=== PATIENT | male | born 1930 | race Caucasian/White ===

== ENCOUNTER 2019-04-14 13:36 | Inpatient (IN) ==
[2019-04-14] MEDS ORDERED: LACTATED RINGERS 1,000 ML IV ONE (13:41)
--- NOTE | 2019-04-14 13:55 | Emergency Department Note ---
SOB HPI - General Chief Complaint: Shortness of Breath/Dyspnea Stated Complaint: SOB, lightheadedness, and swelling Time Seen by Provider: 04/14/19 13:45 Source: patient, family Mode of arrival: ambulatory Limitations: no limitations - History of Present Illness This patient was sent over from the urology office because of shortness of breath and edema. He does have a history of heart failure and does take a diuretic. But has had increasing edema recently and there was some concern for possible ascites though he does not have a history of liver disease. He does have chronic renal disease. No chest pain or cough. - Related Data Home Medications Medication Instructions Recorded Confirmed Aspirin [Adult Low Dose Aspirin EC] 81 mg PO DAILY 07/20/15 04/14/19 Allopurinol [Zyloprim] 100 mg PO DAILY 10/25/15 04/14/19 multivitamin,[id number] 1 tab PO QDAY 11/21/15 04/14/19 tablet cholecalciferol (vitamin D3) 1,000 1,000 unit PO QDAY cap 12/25/15 04/14/19 unit capsule gabapentin 300 mg capsule 300 mg PO TID 12/14/17 04/14/19 levothyroxine 88 mcg tablet 88 mcg PO QAM tab 12/14/17 04/14/19 omeprazole 20 mg capsule,delayed 40 mg PO QAM cap 12/15/17 04/14/19 release ascorbic acid (vitamin C) 1,000 mg 1 g PO QDAY tab 06/20/18 04/14/19 tablet melatonin 1 mg tablet 4 mg PO HS tab 06/20/18 04/14/19 cranberry 500 mg capsule 500 mg PO QDAY cap 11/29/18 04/14/19 pravastatin 20 mg tablet 20 mg PO QDAY 11/29/18 04/14/19 calcium carbonate-vitamin D3 600 1 cap PO .QD cap 01/17/19 04/14/19 mg (1,500 mg)-400 unit capsule ferrous sulfate 325 mg (65 mg 325 mg PO QDAY tab 02/08/19 04/14/19 iron) tablet bumetanide 2 mg tablet 2 mg PO QID tab 02/21/19 04/14/19 Previous Rx's Medication Instructions Recorded ipratropium-albuterol 0.5 mg-3 3 ml INHALATION QID #180 ml 12/15/17 mg(2.5 mg base)/3 mL nebulization soln magnesium oxide 400 mg capsule 400 mg PO BID #360 cap 06/24/18 doxazosin 4 mg tablet 8 mg PO DAILY #90 tab 09/22/18 finasteride 5 mg tablet 5 mg PO QDAY #90 tab 09/22/18 iron sucrose 200 mg iron/10 mL 200 mg IV ONCE #10 ml 02/21/19 intravenous solution spironolactone 25 mg tablet 25 mg PO QDAY #30 tab 04/14/19 Allergies Allergy/AdvReac Type Severity Reaction Status Date / Time Amoxicillin Allergy Unknown Nausea Verified 04/14/19 13:37 sulfamethoxazole AdvReac Unknown Nausea Verified 04/14/19 13:37 [From Bactrim] trimethoprim [From Bactrim] AdvReac Unknown Nausea Verified 04/14/19 13:37 Review of Systems All systems ED: reviewed and negative except as stated. Past Medical History - Past Medical History PMFSH Narrative: Medical History (Last Reviewed 04/14/19 @ 09:56 by LORENZO Brizuela) Allergic rhinitis due to other allergen (Chronic) CHF (congestive heart failure) (Chronic) Chronic obstructive pulmonary disease (Chronic) Vitamin D deficiency (Chronic) Primary generalized (osteo)arthritis (Chronic) Chronic musculoskeletal pain (Chronic) Onychomycosis (Chronic) Pure hypercholesterolemia (Chronic) Neuropathy, idiopathic (Chronic) CHCF (current) use of aspirin (Chronic) Hypothyroidism (Chronic) Gout (Chronic) Cardiomegaly (Chronic) Exertional dyspnea (Chronic) Diastolic dysfunction (Chronic) Peripheral edema (Chronic) Shortness of breath (Chronic) Abnormal PFTs (pulmonary function tests) (Chronic) Fracture (Chronic) Seasonal allergies (Chronic) Hypertension (Chronic) Hypercholesteremia (Chronic) Anemia (Chronic) Pain of right thigh (Chronic) Bronchitis (Chronic) Sinusitis (Chronic) Eustachian tube dysfunction (Chronic) Hip fracture, right (Chronic) Past Surgical History (Last Reviewed 04/14/19 @ 09:56 by LORENZO Brizuela) H/O hernia repair (Chronic) History of bilateral knee replacement (Chronic) History of colonoscopy (Chronic 10/25/15) History of knee replacement (Chronic) History of tonsillectomy (Chronic) History of total right hip arthroplasty (Chronic) Hx of shoulder surgery (Chronic) Family History (Last Reviewed 04/14/19 @ 09:56 by LORENZO Brizuela) Brother Cardiac disease Diabetes Mother Diabetes - Social History smoking status: Former smoker Physical Exam Limitations: no limitations General appearance: alert Head: atraumatic Eye: Present: normal appearance ENT: normal exam Neck: Present: normal inspection Chest: Present: normal inspection Respiratory: Present: other (Decreased breath sounds in the bases) Cardiovascular: Present: irregular rhythm, normal heart sounds Abdominal: Present: soft. Absent: distention, tenderness Extremities: Present: pedal edema, pretibial edema Neurological: Present: alert Psychiatric: Present: normal affect Skin: Present: warm, dry Course Vital Signs Temperature 96.9 F L 04/14/19 13:38 Pulse Rate 77 04/14/19 13:38 Respiratory Rate 22 04/14/19 13:38 Blood Pressure 139/68 04/14/19 13:38 Pulse Oximetry (%) 96 04/14/19 13:38 Temperature 96.9 F L 04/14/19 13:38 Pulse Rate 61 04/14/19 18:16 Respiratory Rate 19 04/14/19 18:16 Blood Pressure 128/74 04/14/19 18:16 Pulse Oximetry (%) 97 04/14/19 18:16 Shortness of Breath/Dyspnea - [facility] Narrative Medical decision making narrative: Patient's x-ray is read as showing heart failure his BNP was 8100. Troponin of 0.08 and 3 hours later was 0.07. He has had no associated chest pain. We did give him 40 of Lasix and he diuresed 500 cc. He will be admitted to the hospital by Dr. Caruso. - Lab Data Lab results reviewed: Yes I reviewed the patient's lab results. Result diagrams: 04/14/19 14:08 04/14/19 14:07 Lab Results 04/14/19 04/14/19 04/14/19 Range/Units 14:03 14:07 14:08 WBC 2.9 L (4.5-11.0) K/mcL RBC 3.20 L (4.50-5.90) M/mcL Hgb 9.9 L (13.5-16.5) g/dL Hct 29.9 L (41.0-55.0) % POC Hct 31.0 L (41.0-55.0) % MCV 93.4 (80.0-100.0) fL MCH 30.9 (26.0-34.0) pg MCHC 33.1 (31.0-36.0) g/dL RDW 16.8 H (11.5-14.5) % Plt Count 86 L (140-440) K/mcL MPV 10.0 (7.4-10.4) fL Gran % 71.4 (38.0-78.0) % Lymph % (Auto) 17.8 (15.5-49.0) % [place] % (Auto) 7.9 (1.0-12.0) % Eos % (Auto) 2.3 (0.0-7.0) % Baso % (Auto) 0.6 (0.0-2.0) % Gran # 2.0 (1.8-8.0) K/mcL Lymph # (Auto) 0.5 L (1.5-4.8) K/mcL [place] # (Auto) 0.2 (0.1-0.9) K/mcL Eos # (Auto) 0.1 (0.0-0.7) K/mcL Baso # (Auto) 0 (0.0-0.3) K/mcL VBG Lactic Acid 1.4 (0.5-2.0) mmol/L POC Sodium 127 L (133-145) mmol/L Sodium 128 L (133-145) mmol/L POC Potassium 3.5 (3.3-5.1) mmol/L Potassium 3.6 (3.3-5.1) mmol/L POC Chloride 87 L (96-108) mmol/L Chloride 86 L (96-108) mmol/L Carbon Dioxide 27 (22-30) mmol/L POC Total CO2 30 (22-30) mmol/L Anion Gap 15.0 (8-16) POC BUN 27 H (8-23) mg/dl BUN 25 H (8-23) mg/dl Creatinine 1.8 H (0.7-1.2) mg/dl POC Creatinine 1.8 H (0.7-1.2) mg/dl GFR Calculation 33 Glucose 124 H (70-105) mg/dL POC Glucose 120 H (70-105) mg/dL Calcium 9.0 (8.6-10.4) mg/dl POC WB Ioniz Calcium 1.10 L (1.16-1.32) mmol/L Total Bilirubin 1.1 H (0.0-1.0) mg/dL AST 26 (0-37) U/l ALT 10 (0-40) U/l Alkaline Phosphatase 99 (39-117) U/L Total Creatine Kinase 125 (24-195) IU/L CK-MB (CK-2) 5.5 H (0-4.9) ng/ml Troponin T (0-0.03) ng/ml NT-Pro-B Natriuret Pep 8172.0 H (0-450) pg/ml Total Protein 6.4 (5.9-8.4) gm/dL Albumin 4.1 (3.2-5.2) gm/dL Globulin 2.3 (2.2-3.7) gm/dL Albumin/Globulin Ratio 1.8 (1.0-2.3) Procalcitonin (<0.10) ng/mL Urine Color Urine Appearance Urine pH (5.0-9.0) Ur Specific [place] (1.000-1.035) Urine Protein (NEG) mg/dL Urine Glucose (UA) (NEG) mg/dL Urine Ketones (NEG) mg/dL Urine Occult Blood (<0.03) mg/dL Urine Nitrate (NEG) Urine Bilirubin (NEG) mg/dL Urine Urobilinogen (NEG) mg/dL Ur Leukocyte Esterase (NEG) /uL Ur Culture Indicated? 04/14/19 04/14/19 04/14/19 Range/Units 14:08 14:08 14:49 WBC (4.5-11.0) K/mcL RBC (4.50-5.90) M/mcL Hgb (13.5-16.5) g/dL Hct (41.0-55.0) % POC Hct (41.0-55.0) % MCV (80.0-100.0) fL MCH (26.0-34.0) pg MCHC (31.0-36.0) g/dL RDW (11.5-14.5) % Plt Count (140-440) K/mcL MPV (7.4-10.4) fL Gran % (38.0-78.0) % Lymph % (Auto) (15.5-49.0) % [place] % (Auto) (1.0-12.0) % Eos % (Auto) (0.0-7.0) % Baso % (Auto) (0.0-2.0) % Gran # (1.8-8.0) K/mcL Lymph # (Auto) (1.5-4.8) K/mcL [place] # (Auto) (0.1-0.9) K/mcL Eos # (Auto) (0.0-0.7) K/mcL Baso # (Auto) (0.0-0.3) K/mcL VBG Lactic Acid (0.5-2.0) mmol/L POC Sodium (133-145) mmol/L Sodium (133-145) mmol/L POC Potassium (3.3-5.1) mmol/L Potassium (3.3-5.1) mmol/L POC Chloride (96-108) mmol/L Chloride (96-108) mmol/L Carbon Dioxide (22-30) mmol/L POC Total CO2 (22-30) mmol/L Anion Gap (8-16) POC BUN (8-23) mg/dl BUN (8-23) mg/dl Creatinine (0.7-1.2) mg/dl POC Creatinine (0.7-1.2) mg/dl GFR Calculation Glucose (70-105) mg/dL POC Glucose (70-105) mg/dL Calcium (8.6-10.4) mg/dl POC WB Ioniz Calcium (1.16-1.32) mmol/L Total Bilirubin (0.0-1.0) mg/dL AST (0-37) U/l ALT (0-40) U/l Alkaline Phosphatase (39-117) U/L Total Creatine Kinase (24-195) IU/L CK-MB (CK-2) (0-4.9) ng/ml Troponin T 0.08 H* (0-0.03) ng/ml NT-Pro-B Natriuret Pep (0-450) pg/ml Total Protein (5.9-8.4) gm/dL Albumin (3.2-5.2) gm/dL Globulin (2.2-3.7) gm/dL Albumin/Globulin Ratio (1.0-2.3) Procalcitonin < 0.05 (<0.10) ng/mL Urine Color Yellow Urine Appearance Clear Urine pH 6.0 (5.0-9.0) Ur Specific [place] 1.009 (1.000-1.035) Urine Protein Neg (NEG) mg/dL Urine Glucose (UA) Negative (NEG) mg/dL Urine Ketones Neg (NEG) mg/dL Urine Occult Blood Neg (<0.03) mg/dL Urine Nitrate Neg (NEG) Urine Bilirubin Neg (NEG) mg/dL Urine Urobilinogen Neg (NEG) mg/dL Ur Leukocyte Esterase Neg (NEG) /uL Ur Culture Indicated? No 04/14/19 Range/Units 17:06 WBC (4.5-11.0) K/mcL RBC (4.50-5.90) M/mcL Hgb (13.5-16.5) g/dL Hct (41.0-55.0) % POC Hct (41.0-55.0) % MCV (80.0-100.0) fL MCH (26.0-34.0) pg MCHC (31.0-36.0) g/dL RDW (11.5-14.5) % Plt Count (140-440) K/mcL MPV (7.4-10.4) fL Gran % (38.0-78.0) % Lymph % (Auto) (15.5-49.0) % [place] % (Auto) (1.0-12.0) % Eos % (Auto) (0.0-7.0) % Baso % (Auto) (0.0-2.0) % Gran # (1.8-8.0) K/mcL Lymph # (Auto) (1.5-4.8) K/mcL [place] # (Auto) (0.1-0.9) K/mcL Eos # (Auto) (0.0-0.7) K/mcL Baso # (Auto) (0.0-0.3) K/mcL VBG Lactic Acid (0.5-2.0) mmol/L POC Sodium (133-145) mmol/L Sodium (133-145) mmol/L POC Potassium (3.3-5.1) mmol/L Potassium (3.3-5.1) mmol/L POC Chloride (96-108) mmol/L Chloride (96-108) mmol/L Carbon Dioxide (22-30) mmol/L POC Total CO2 (22-30) mmol/L Anion Gap (8-16) POC BUN (8-23) mg/dl BUN (8-23) mg/dl Creatinine (0.7-1.2) mg/dl POC Creatinine (0.7-1.2) mg/dl GFR Calculation Glucose (70-105) mg/dL POC Glucose (70-105) mg/dL Calcium (8.6-10.4) mg/dl POC WB Ioniz Calcium (1.16-1.32) mmol/L Total Bilirubin (0.0-1.0) mg/dL AST (0-37) U/l ALT (0-40) U/l Alkaline Phosphatase (39-117) U/L Total Creatine Kinase (24-195) IU/L CK-MB (CK-2) (0-4.9) ng/ml Troponin T 0.07 H* (0-0.03) ng/ml NT-Pro-B Natriuret Pep (0-450) pg/ml Total Protein (5.9-8.4) gm/dL Albumin (3.2-5.2) gm/dL Globulin (2.2-3.7) gm/dL Albumin/Globulin Ratio (1.0-2.3) Procalcitonin (<0.10) ng/mL Urine Color Urine Appearance Urine pH (5.0-9.0) Ur Specific [place] (1.000-1.035) Urine Protein (NEG) mg/dL Urine Glucose (UA) (NEG) mg/dL Urine Ketones (NEG) mg/dL Urine Occult Blood (<0.03) mg/dL Urine Nitrate (NEG) Urine Bilirubin (NEG) mg/dL Urine Urobilinogen (NEG) mg/dL Ur Leukocyte Esterase (NEG) /uL Ur Culture Indicated? - Radiology Data Radiology results reviewed: Yes I reviewed the patient's radiology results. 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
[2019-04-14 14:13] LABS: POC Blood Urea Nitrogen 27 mg/dl (8-23); POC CO2 30 mmol/L (22-30); POC Chloride 87 mmol/L (96-108); POC Creatinine 1.8 mg/dl (0.7-1.2); POC Glucose, Random 120 mg/dL (70-105); POC Potassium 3.5 mmol/L (3.3-5.1); POC Sodium 127 mmol/L (133-145)
[2019-04-14 14:38] LABS: Basophils # (Auto) 0 K/mcL (0.0-0.3); Basophils % (Auto) 0.6 % (0.0-2.0); Eosinophils # (Auto) 0.1 K/mcL (0.0-0.7); Eosinophils % (Auto) 2.3 % (0.0-7.0); Granulocytes % (Auto) 71.4 % (38.0-78.0); Hematocrit 29.9 % (41.0-55.0); Hemoglobin 9.9 g/dL (13.5-16.5); Lymphocytes # (Auto) 0.5 K/mcL (1.5-4.8); Lymphocytes % (Auto) 17.8 % (15.5-49.0); Mean Cell Volume 93.4 fL (80.0-100.0); Mean Corpuscular HGB Conc 33.1 g/dL (31.0-36.0); Monocytes # (Auto) 0.2 K/mcL (0.1-0.9); Monocytes % (Auto) 7.9 % (1.0-12.0); Platelet Count 86 K/mcL (140-440); Red Cell Distribution Width 16.8 % (11.5-14.5); WBC 2.9 K/mcL (4.5-11.0)
--- NOTE | 2019-04-14 14:41 | XRay Report ---
CLINICAL INFORMATION: dyspnea COMPARISON: 09/05/[address] demonstrating lung bases FINDINGS: Moderate cardiomegaly is unchanged. Mediastinum is unremarkable. The pulmonary vessels are slightly distended, but there is no definite edema. Moderate right pleural effusion has resulted in compressive atelectasis of the right middle and lower lobes. This has progressed from the prior CT. IMPRESSION: Moderate right pleural effusion resulting in compressive atelectasis of the right middle and lower lobes. Worsening from prior CT Mild CHF Interpreted and Authenticated by: Korey Wallace 04/14/19
[2019-04-14 15:05] LABS: Creatine Kinase MB 5.5 ng/ml (0-4.9)
[2019-04-14 15:10] LABS: ALT/SGPT 10 U/l (0-40); AST/SGOT 26 U/l (0-37); Albumin 4.1 gm/dL (3.2-5.2); Albumin/Globulin Ratio 1.8 (1.0-2.3); Alkaline Phosphatase 99 U/L (39-117); Bilirubin,Total 1.1 mg/dL (0.0-1.0); Blood Urea Nitrogen 25 mg/dl (8-23); Carbon Dioxide 27 mmol/L (22-30); Chloride 86 mmol/L (96-108); Creatine Kinase 125 IU/L (24-195); Globulin 2.3 gm/dL (2.2-3.7); Glomerular Filtration Rate 33; Glucose 124 mg/dL (70-105)
[2019-04-14] MEDS ORDERED: FUROSEMIDE 40 MG/4 ML VIAL IV ONE (15:33)
[2019-04-14 15:35] LABS: Appearance,Urine CLEAR; Bilirubin,Urine NEG (NEG); Color,Urine YELLOW; Culture Indicated,Urine NO; Glucose,Urine (UA) NEGATIVE (NEG); Ketones,Urine NEG (NEG); Leukocyte Esterase,Urine NEG /uL (NEG); Nitrate,Urine NEG (NEG); Protein,Urine NEG (NEG); Specific Gravity,Urine 1.009 (1.000-1.035); Urine Blood NEG mg/dL (<0.03); Urobilinogen,Urine NEG (NEG)
--- NOTE | 2019-04-14 15:44 | Ultrasound Report ---
CLINICAL INFORMATION: Bilateral leg edema COMPARISON: None. FINDINGS: The entire bilateral deep venous system including the common femoral, superficial femoral, popliteal and paired trifurcation calf veins are easily compressible and show normal venous blood flow on color and spectral Doppler. No evidence of thrombus IMPRESSION: Negative exam - no evidence of deep vein thrombosis in either lower extremity. Interpreted and Authenticated by: Korey Wallace 04/14/19
[2019-04-14] MEDS ORDERED: ONDANSETRON 4 MG/2 ML VIAL IV ONE (17:54)
--- NOTE | 2019-04-14 18:22 | Internal Med History&Physical ---
Medical - H&P: [facility] Patient information: Note initiated : 04/14/19 at 6:19 pm Service Date, if different from initiated Date: [] Patient: Bran Canas a 88 y/o M admitted on for SOB, lightheadedness, and swelling. Chief Complaint: [] Chief complaint: SOB History of present illness: Mr. Canas is a 88 year old M with a history of diastolic heart failure, COPD/hypertension, atrial fibrillation, chronic hyponatremia and pulmonary hypertension. Patient presents with increasing dyspnea along with 24 pound weight gain over the last week and a half. Patient has profound orthopnea unable to sleep over the last 10 days. He has been sleeping on his chair since. He has developed significant lymphedema along with lymph oozing lower extremity. He has had a significant decline in functional status and has been unable to perform activities of daily living in the past week. Today he was following up with urology and was referred to [facility] ER due to profound dyspnea. Initial work-up in the ER was consistent with decompensated heart failure on chest imaging. Patient was started on diuretics and subsequently hospitalist service was consulted At the time of evaluation patient is alert oriented. He was able to answer the question. He denies recent NSAID intake or high salt diet. He is currently not on diuretics except for spironolactone. He denies recent sick contact, chest pain, lightheadedness but had a recent fall after tripping. Review of systems 10 point review system was performed and is negative except as discussed above Medical - H&P: PMH Medical history: Allergic rhinitis due to other allergen (Chronic) CHF (congestive heart failure) (Chronic) Chronic obstructive pulmonary disease (Chronic) Vitamin D deficiency (Chronic) Primary generalized (osteo)arthritis (Chronic) Chronic musculoskeletal pain (Chronic) Onychomycosis (Chronic) Bilateral Pure hypercholesterolemia (Chronic) Neuropathy, idiopathic (Chronic) FDC (current) use of aspirin (Chronic) Hypothyroidism (Chronic) Gout (Chronic) Cardiomegaly (Chronic) Exertional dyspnea (Chronic) Diastolic dysfunction (Chronic) Peripheral edema (Chronic) Shortness of breath (Chronic) Abnormal PFTs (pulmonary function tests) (Chronic) Fracture (Chronic) Seasonal allergies (Chronic) Hypertension (Chronic) Hypercholesteremia (Chronic) Anemia (Chronic) Pain of right thigh (Chronic) Bronchitis (Chronic) Sinusitis (Chronic) Eustachian tube dysfunction (Chronic) Hip fracture, right (Chronic) x2 Surgical History H/O hernia repair (Chronic) History of bilateral knee replacement (Chronic) History of colonoscopy (Chronic 10/25/15) History of knee replacement (Chronic) Bilateral knee joint replacement History of tonsillectomy (Chronic) History of total right hip arthroplasty (Chronic) Hx of shoulder surgery (Chronic) Right side Family History Brother Cardiac disease Diabetes Mother Diabetes Social History marital status: occupational status: retired smoking status: Former smoker quit date: 10/04/91 pack-years: 30 counseling given: other alcohol intake frequency: a few times a week substance use type: does not use Lives in [place] receives help from daughter and grandson Medical - H&P: Meds Home Medications Medication Instructions Recorded Confirmed Type Aspirin [Adult Low Dose Aspirin EC] 81 mg PO DAILY 07/20/15 04/14/19 History Allopurinol [Zyloprim] 100 mg PO DAILY 10/25/15 04/14/19 History multivitamin,jj-[id number] 1 tab PO QDAY 11/21/15 04/14/19 History tablet cholecalciferol (vitamin D3) 1,000 1,000 unit PO QDAY cap 12/25/15 04/14/19 History unit capsule gabapentin 300 mg capsule 300 mg PO TID 12/14/17 04/14/19 History levothyroxine 88 mcg tablet 88 mcg PO QAM tab 12/14/17 04/14/19 History ipratropium-albuterol 0.5 mg-3 3 ml INHALATION QID #180 ml 12/15/17 04/14/19 Rx mg(2.5 mg base)/3 mL nebulization soln omeprazole 20 mg capsule,delayed 40 mg PO QAM cap 12/15/17 04/14/19 History release ascorbic acid (vitamin C) 1,000 mg 1 g PO QDAY tab 06/20/18 04/14/19 History tablet melatonin 1 mg tablet 4 mg PO HS tab 06/20/18 04/14/19 History magnesium oxide 400 mg capsule 400 mg PO BID #360 cap 06/24/18 04/14/19 Rx doxazosin 4 mg tablet 8 mg PO DAILY #90 tab 09/22/18 04/14/19 Rx finasteride 5 mg tablet 5 mg PO QDAY #90 tab 09/22/18 04/14/19 Rx cranberry 500 mg capsule 500 mg PO QDAY cap 11/29/18 04/14/19 History pravastatin 20 mg tablet 20 mg PO QDAY 11/29/18 04/14/19 History calcium carbonate-vitamin D3 600 1 cap PO .QD cap 01/17/19 04/14/19 History mg (1,500 mg)-400 unit capsule ferrous sulfate 325 mg (65 mg 325 mg PO QDAY tab 02/08/19 04/14/19 History iron) tablet bumetanide 2 mg tablet 2 mg PO QID tab 02/21/19 04/14/19 History iron sucrose 200 mg iron/10 mL 200 mg IV ONCE #10 ml 02/21/19 04/14/19 Rx intravenous solution spironolactone 25 mg tablet 25 mg PO QDAY #30 tab 04/14/19 04/14/19 Rx Allergies Allergy/AdvReac Type Severity Reaction Status Date / Time Amoxicillin AdvReac Mild Nausea Verified 04/14/19 20:33 sulfamethoxazole AdvReac Mild Nausea Verified 04/14/19 20:33 [From Bactrim] trimethoprim [From Bactrim] AdvReac Mild Nausea Verified 04/14/19 20:33 Medical - H&P: Exam - Constitutional Vitals: Temp Pulse Resp BP Pulse Ox 96.9 F L 68 19 128/74 98 04/14/19 13:38 04/14/19 18:19 04/14/19 18:19 04/14/19 18:16 04/14/19 18:19 General appearance: moderate distress (Short of breath) Exam: Alert and oriented Eye movement symmetrical Oral cavity dry No ear nose discharge Head normocephalic Neck no lymphadenopathy but distended jugular vein S1-S2 irregular rhythm, ESM grade 2 Bilateral inspiratory crackles/diminished breath sounds Abdomen distended/nontender Lower extremity 2+ pitting lymphedema with lymph oozing No joint swelling erythema skin no suspicious lesion Psych alert cooperative Neuro nonfocal Medical - H&P: Reslt - Labs CBC & Chem 7: 04/15/19 03:40 04/15/19 03:40 Labs: Short CBC 04/14/19 Range/Units 14:08 WBC 2.9 L (4.5-11.0) K/mcL Hgb 9.9 L (13.5-16.5) g/dL Hct 29.9 L (41.0-55.0) % Plt Count 86 L (140-440) K/mcL BMP 04/14/19 14:07 Sodium 128 L Potassium 3.6 Chloride 86 L Carbon Dioxide 27 BUN 25 H Creatinine 1.8 H Glucose 124 H Calcium 9.0 Cardiac Enzymes 04/14/19 04/14/19 04/14/19 Range/Units 14:07 14:08 17:06 Total Creatine Kinase 125 (24-195) IU/L CK-MB (CK-2) 5.5 H (0-4.9) ng/ml Troponin T 0.08 H* 0.07 H* (0-0.03) ng/ml Liver Function 04/14/19 Range/Units 14:07 Total Bilirubin 1.1 H (0.0-1.0) mg/dL AST 26 (0-37) U/l ALT 10 (0-40) U/l Alkaline Phosphatase 99 (39-117) U/L Albumin 4.1 (3.2-5.2) gm/dL Urine 04/14/19 Range/Units 14:49 Urine Color Yellow Urine Appearance Clear Urine pH 6.0 (5.0-9.0) Ur Specific [place] 1.009 (1.000-1.035) Urine Protein Neg (NEG) mg/dL Urine Glucose (UA) Negative (NEG) mg/dL Medical - H&P: A/P (1) CHF (congestive heart failure) Current visit: Yes Status: Chronic * Acute decompensated heart failure-echocardiogram, diuresis, optimization of CHF management based on echo findings. Inpatient telemetry admission. * Anasarca secondary to above. * Hypoxic respiratory failure continue supplemental oxygen/diuresis. Secondary to above * History of chronic kidney disease-avoid nephrotoxins and close monitoring of renal function. * Hyperlipidemia continue statin * Hypothyroidism continue thyroxine * Neuropathy continue gabapentin * A Fib-currently rate controlled. Not on anticoagulation. Chads score 2(unclear why not on anticoagulation for CVA prophylaxis) * History of BPH continue finasteride/doxazosin * Chronic hyponatremia secondary to SIADH. Managed by nephrology as outpatient * History of chronic kidney disease stage III management nephrology as outpatient. * Chronic anemia management nephrology as outpatient. * History of pulmonary hypertension. Managed by pulmonology * History of COPD continue bronchodilators * GERD continue PPI * History of gout continue allopurinol * Full code * Prophylaxis heparin Plan * Inpatient telemetry admit. Anticipate a minimum of 2 midnights hospitalization * Aggressive diuresis * Echocardiogram * Optimize CHF management based on echo findings * Pre-existing well condition management on home meds
[2019-04-14] MEDS ORDERED: ACETAMINOPHEN 325 MG TABLET PO PRN (19:30)
[2019-04-14] MEDS ORDERED: MAGNESIUM SULFATE 2 GM/50 ML BAG IV PRN (19:30)
[2019-04-14] MEDS ORDERED: POTASSIUM CHLORIDE 20 MEQ PACKET PO PRN (19:30)
[2019-04-14] MEDS ORDERED: POTASSIUM CHLORIDE 40 MEQ in DEXTROSE 5% IN WATER 500 ML IV PRN (19:30)
[2019-04-14] MEDS ORDERED: guaiFENesin/CODEINE 10 ML UDC PO PRN (19:30)
[2019-04-14] MEDS ORDERED: MELATONIN 3 MG TABLET PO PRN (19:30)
[2019-04-14] MEDS ORDERED: ONDANSETRON 4 MG/2 ML VIAL IV PRN (19:30)
[2019-04-14] MEDS: DOCUSATE SODIUM 100 MG CAPSULE PO SCH (21:34)
[2019-04-14] MEDS: HEPARIN 5,000 UNIT/ML VIAL SQ SCH (21:34)
[2019-04-14] MEDS: SENNOSIDES/DOCUSATE SODIUM 1 TAB TABLET PO SCH (21:34)
[2019-04-14] MEDS: 0.9 % SODIUM CHLORIDE 10 ML SYRINGE IV SCH (22:33)
[2019-04-15 05:32] LABS: Hematocrit 27.4 % (41.0-55.0); Mean Cell Volume 94.5 fL (80.0-100.0); Mean Corpuscular HGB Conc 32.9 g/dL (31.0-36.0); Mean Platelet Volume 10.1 fL (7.4-10.4); Platelet Count 83 K/mcL (140-440); Red Cell Distribution Width 16.7 % (11.5-14.5); WBC 3.3 K/mcL (4.5-11.0)
[2019-04-15] MEDS: 0.9 % SODIUM CHLORIDE 10 ML SYRINGE IV SCH ×3 (05:37→21:30)
[2019-04-15 05:56] LABS: ALT/SGPT 9 U/l (0-40); AST/SGOT 23 U/l (0-37); Albumin 3.7 gm/dL (3.2-5.2); Albumin/Globulin Ratio 1.7 (1.0-2.3); Alkaline Phosphatase 90 U/L (39-117); Bilirubin,Direct 0.5 mg/dL (0.0-0.3); Bilirubin,Total 1.1 mg/dL (0.0-1.0); Blood Urea Nitrogen 23 mg/dl (8-23); Calcium 8.9 mg/dl (8.6-10.4); Carbon Dioxide 28 mmol/L (22-30); Chloride 87 mmol/L (96-108); Globulin 2.2 gm/dL (2.2-3.7); Glomerular Filtration Rate 42; Glucose 97 mg/dL (70-105); Lactate Dehydrogenase 186 U/L (94-250); Phosphorous 3.6 mg/dL (2.7-4.5); Triglycerides 54 mg/dl (<150); Uric Acid 8.8 mg/dL (2.5-8.0)
[2019-04-15 06:39] LABS: Anisocytosis 1+ (NONE SEEN); Band Neutrophils % 3 % (0-10); Eosinophils % (Manual) 3 % (0-7); Hypochromasia 1+ (NONE SEEN); Lymphocytes % 17 % (15-49); Monocytes % (Manual) 6 % (1-12); Platelet Estimate DECREASED (NORMAL); RBC Morphology ABNORM (NORMAL); Segmented Neutrophils % 71 % (38-78)
[2019-04-15] MEDS: METOLAZONE 2.5 MG TABLET PO SCH (07:38)
[2019-04-15] MEDS: FUROSEMIDE 40 MG/4 ML VIAL IV SCH ×2 (08:12→15:54)
[2019-04-15] MEDS: DOCUSATE SODIUM 100 MG CAPSULE PO SCH (08:13)
[2019-04-15] MEDS: HEPARIN 5,000 UNIT/ML VIAL SQ SCH (09:15)
--- NOTE | 2019-04-15 10:10 | Internal Med Progress Note ---
Medical - PN: Subj Patient information: Note initiated : 04/15/19 at 10:08 am Service Date, if different from initiated Date: [] Patient: Bran Canas a 88 y/o M admitted on 04/14/19 for SOB, lightheadedness, and swelling. Chief Complaint: [] Interval history: Mr. Canas is a 88 year old M with a history of diastolic heart failure, COPD/hypertension, atrial fibrillation, chronic hyponatremia and pulmonary hypertension. Patient presents with increasing dyspnea along with 24 pound weight gain over the last week and a half. Patient has profound orthopnea unable to sleep over the last 10 days. He has been sleeping on his chair since. He has developed significant lymphedema along with lymph oozing lower extrem ity. He has had a significant decline in functional status and has been unable to perform activities of daily living in the past week. Today he was following up with urology and was referred to [facility] ER due to profound dyspnea. Initial work-up in the ER was consistent with decompensated heart failure on chest imaging. Patient was started on diuretics and subsequently hospitalist service was consulted At the time of evaluation patient is alert oriented. He was able to answer the question. He denies recent NSAID intake or high salt diet. He is currently not on diuretics except for spironolactone. He denies recent sick contact, chest pain, lightheadedness but had a recent fall after tripping. 04/15-patient doing well. No overnight events. No concerns per staff. Diuresing well with over 3000 cc net negative fluid balance. Improving lymphedema and orthopnea. Patient currently resting in recliner. Persistent A. fib but rate controlled. Echocardiogram results pending. Pancytopenia noted on labs. Sodium 129, creatinine 1.5. Improved hypoxia now on room air. - Constitutional Vitals: Vital Signs Temp Pulse Resp BP Pulse Ox 97.6 F 71 24 H 124/65 94 04/15/19 06:50 04/15/19 03:24 04/15/19 06:50 04/15/19 06:50 04/15/19 08:00 Period Temp Pulse Resp BP Sys/Terry Pulse Ox Last 24 Hr 96.9 F-97.9 F 47-87 13-26 113-143/59-112 93-99 Intake and Output 04/14/19 04/15/19 04/15/19 21:59 05:59 13:59 Intake Total 360 Output Total 1176 575 451 Balance -1176 -575 -91 Weight 220 lb Intake & Output: Intake & Output 04/14/19 04/15/19 04/15/19 21:59 05:59 13:59 Intake Total 360 Output Total 1176 575 451 Balance -1176 -575 -91 Weight 220 lb Intake: Oral 360 Output: Void Amount 1175 375 100 # of times incontinent of urine 1 1 Urine/Stool Mix 200 350 Other: Meal Breakfast Percent of Meal Consumed 95 Feeding Ability Independent Urine Appearance Clear Clear Urine Color Bright Yellow Bright Yellow Urine Odor Normal Normal Stool Size Small Large Stool Color Brown Brown Stool Consistency Normal for Patient Soft Formed # Voids 1 # Bowel Movements 1 General appearance: no acute distress Exam: Alert and oriented Nonlabored breathing Telemetry A. fib Diuresing well No anxiety Medical - PN: Obj Da - Labs CBC & Chem 7: 04/15/19 03:40 04/15/19 03:40 Labs: Abnormal Lab Results 04/15/19 04/15/19 04/14/19 03:40 03:40 17:06 WBC 3.3 L RBC 2.90 L Hgb 9.0 L Hct 27.4 L POC Hct RDW 16.7 H Plt Count 83 L Lymph # (Auto) Platelet Estimate Decreased A RBC Morphology Abnorm A Hypochromasia 1+ A Anisocytosis 1+ A POC Sodium Sodium 129 L POC Chloride Chloride 87 L POC BUN BUN Creatinine 1.5 H POC Creatinine Glucose POC Glucose Uric Acid 8.8 H POC WB Ioniz Calcium Total Bilirubin 1.1 H Direct Bilirubin 0.5 H CK-MB (CK-2) Troponin T 0.07 H* NT-Pro-B Natriuret Pep 04/14/19 04/14/19 04/14/19 14:08 14:08 14:07 WBC 2.9 L RBC 3.20 L Hgb 9.9 L Hct 29.9 L POC Hct 31.0 L RDW 16.8 H Plt Count 86 L Lymph # (Auto) 0.5 L Platelet Estimate RBC Morphology Hypochromasia Anisocytosis POC Sodium 127 L Sodium 128 L POC Chloride 87 L Chloride 86 L POC BUN 27 H BUN 25 H Creatinine 1.8 H POC Creatinine 1.8 H Glucose 124 H POC Glucose 120 H Uric Acid POC WB Ioniz Calcium 1.10 L Total Bilirubin 1.1 H Direct Bilirubin CK-MB (CK-2) 5.5 H Troponin T 0.08 H* NT-Pro-B Natriuret Pep 8172.0 H Meds: Medications Acetaminophen (Tylenol) 650 mg PO Q4-6HP PRN PRN Reason: PAIN/FEVER > 101 Docusate Sodium (Colace) 100 mg PO BID [facility] Last Admin: 04/15/19 08:13 Dose: Not Given Documented by: Furosemide (Lasix) 40 mg IV BIDD [facility] Last Admin: 04/15/19 08:12 Dose: 40 mg Documented by: Guaifenesin/Codeine Phosphate (Robitussin Ac) 10 ml PO Q4HP PRN PRN Reason: Cough Heparin Sodium (Porcine) (Heparin) 5,000 unit SQ Q12 [facility] Last Admin: 04/15/19 09:15 Dose: Not Given Documented by: Potassium Chloride 40 meq/ (Dextrose) 520 mls @ 130 mls/hr IV UD PRN PRN Reason: K+ = or < 3.5 Magnesium Sulfate (Magnesium Sulfate) 2 gm in 50 mls @ 50 mls/hr IV UD PRN PRN Reason: MG = or < 1.7 Last Admin: 04/15/19 08:13 Dose: 50 mls/hr Documented by: Iron Carb/Multivit/[place]/Folic Acid (Multivitamin W/Minerals) 1 tab PO DAILY [facility] Melatonin (Melatonin 3mg Tablet) 3 mg PO HSP PRN PRN Reason: Insomnia Metolazone (Zaroxolyn) 2.5 mg PO DAILY@0830 [facility] Last Admin: 04/15/19 07:38 Dose: 2.5 mg Documented by: Ondansetron HCl (Zofran) 4 mg IV Q4-6HP PRN PRN Reason: Nausea And Vomiting Potassium Chloride (Klor-Con) 40 meq PO DAILYP PRN PRN Reason: K+ < 3.5 Last Admin: 04/15/19 07:38 Dose: 40 meq Documented by: Senna/Docusate Sodium (Senna Plus Tablet) 1 tab PO HS [facility] Last Admin: 04/14/19 21:34 Dose: 1 tab Documented by: Sodium Chloride (Saline Flush) 10 ml IV Q8 [facility] Last Admin: 04/15/19 05:37 Dose: 10 ml Documented by: Medical - PN: A/P - Time Spent With Patient Total time spent is greater than 50% in coordination of care (as documented) at patient's floor/unit and/or counseling patient: 25 - 35 minutes (1) CHF (congestive heart failure) Status: Chronic Assessment and plan: * Acute decompensated heart failure-clinically responding to diuretics. Awaiting echocardiogram. Optimize CHF management based on echo findings. * Anasarca secondary to above. Improving with diuresis * Hypoxic respiratory failure -clinically improved now on room air * Hypokalemia replace as indicated * History of chronic kidney disease stage III-creatinine down to 1.5. Avoid nephrotoxins and continue close monitoring of renal function. * Hyperlipidemia continue statin * Hypothyroidism continue thyroxine * Neuropathy continue gabapentin * A Fib-currently rate controlled. Not on anticoagulation. Chads score 2(unclear why not on anticoagulation for CVA prophylaxis) * History of BPH continue finasteride/doxazosin * Chronic hyponatremia secondary to SIADH. Managed by nephrology as outpatient. Sodium 129 * History of chronic kidney disease stage III management nephrology as outpatient. * Chronic anemia management nephrology as outpatient. * History of pulmonary hypertension. Pulmonary artery pressures around 50 as per pulmonology office visit report. Managed by pulmonology * History of COPD continue bronchodilators * GERD continue PPI * History of gout continue allopurinol * Full code * Prophylaxis heparin Plan * Continue aggressive diuresis * Await echocardiogram * Optimize CHF management based on echo findings * Pre-existing medical condition management on home meds * Monitor renal function * Electrolyte replacement Current Visit: Yes Medical - PN: Qual - VTE Deep Vein Thrombosis/Pulmonary Embolism Present on Admission: No
[2019-04-15] MEDS: MULTIVIT,THER IRON,CA,FA & MIN 1 TABLET PO SCH (11:49)
[2019-04-15] MEDS: POTASSIUM CHLORIDE 20 MEQ TABLET PO SCH (17:31)
[2019-04-15] MEDS: SENNOSIDES/DOCUSATE SODIUM 1 TAB TABLET PO SCH (21:00)
[2019-04-16 05:07] LABS: Hemoglobin 9.3 g/dL (13.5-16.5); Mean Cell Volume 93.3 fL (80.0-100.0); Mean Corpuscular HGB Conc 33.3 g/dL (31.0-36.0); Mean Platelet Volume 9.8 fL (7.4-10.4); Platelet Count 89 K/mcL (140-440); Red Cell Distribution Width 16.2 % (11.5-14.5); WBC 3.4 K/mcL (4.5-11.0)
[2019-04-16 06:00] LABS: ALT/SGPT 11 U/l (0-40); AST/SGOT 26 U/l (0-37); Albumin 3.9 gm/dL (3.2-5.2); Albumin/Globulin Ratio 1.7 (1.0-2.3); Alkaline Phosphatase 94 U/L (39-117); Bilirubin,Direct 0.5 mg/dL (0.0-0.3); Bilirubin,Total 1.1 mg/dL (0.0-1.0); Blood Urea Nitrogen 21 mg/dl (8-23); Calcium 9.1 mg/dl (8.6-10.4); Carbon Dioxide 28 mmol/L (22-30); Chloride 90 mmol/L (96-108); Globulin 2.3 gm/dL (2.2-3.7); Glomerular Filtration Rate 54; Glucose 90 mg/dL (70-105); Lactate Dehydrogenase 219 U/L (94-250); Phosphorous 3.1 mg/dL (2.7-4.5); Triglycerides 60 mg/dl (<150); Uric Acid 9.2 mg/dL (2.5-8.0)
[2019-04-16 06:26] LABS: Anisocytosis 1+ (NONE SEEN); Eosinophils % (Manual) 4 % (0-7); Lymphocytes % 21 % (15-49); Monocytes % (Manual) 6 % (1-12); Platelet Estimate DECREASED (NORMAL); RBC Morphology ABNORM (NORMAL); Segmented Neutrophils % 69 % (38-78)
[2019-04-16] MEDS: METOLAZONE 2.5 MG TABLET PO SCH (07:45)
[2019-04-16] MEDS: 0.9 % SODIUM CHLORIDE 10 ML SYRINGE IV SCH ×3 (07:47→20:40)
[2019-04-16] MEDS: FUROSEMIDE 40 MG/4 ML VIAL IV SCH ×2 (08:43→17:10)
[2019-04-16] MEDS: POTASSIUM CHLORIDE 20 MEQ TABLET PO SCH ×2 (08:43→17:09)
[2019-04-16] MEDS: MULTIVIT,THER IRON,CA,FA & MIN 1 TABLET PO SCH (08:43)
[2019-04-16] MEDS ORDERED: CRANBERRY 500 MG PO SCH (09:00)
[2019-04-16] MEDS ORDERED: SPIRONOLACTONE 25 MG TABLET PO SCH (09:00)
[2019-04-16] MEDS ORDERED: BUMETANIDE 2 MG PO SCH (09:00)
[2019-04-16] MEDS ORDERED: FERROUS SULFATE 325 MG TABLET PO SCH (09:00)
[2019-04-16] MEDS ORDERED: LEVOTHYROXINE 88 MCG TABLET PO SCH (09:00)
[2019-04-16] MEDS ORDERED: DOXAZOSIN 4 MG TABLET PO SCH (09:00)
[2019-04-16] MEDS ORDERED: IRON SUCROSE COMPLEX 200 MG IV SCH (09:00)
[2019-04-16] MEDS ORDERED: FINASTERIDE 5 MG TABLET PO SCH (09:00)
[2019-04-16] MEDS ORDERED: METOPROLOL SUCCINATE 25 MG TAB.XL.24H PO SCH (09:00)
[2019-04-16] MEDS ORDERED: OMEPRAZOLE 20 MG CAPSULE PO SCH (09:00)
[2019-04-16] MEDS ORDERED: ALLOPURINOL 100 MG TABLET PO SCH (09:00)
--- NOTE | 2019-04-16 09:42 | Internal Med Progress Note ---
Medical - PN: Subj Patient information: Note initiated : 04/16/19 at 9:39 am Service Date, if different from initiated Date: [] Patient: Bran Canas a 88 y/o M admitted on 04/14/19 for SOB, lightheadedness, and swelling. Chief Complaint: [] Interval history: Mr. Canas is a 88 year old M with a history of diastolic heart failure, COPD/hypertension, atrial fibrillation, chronic hyponatremia and pulmonary hypertension. Patient presents with increasing dyspnea along with 24 pound weight gain over the last week and a half. Patient has profound orthopnea unable to sleep over the last 10 days. He has been sleeping on his chair since. He has developed significant lymphedema along with lymph oozing lower extremi ty. He has had a significant decline in functional status and has been unable to perform activities of daily living in the past week. Today he was following up with urology and was referred to [facility] ER due to profound dyspnea. Initial work-up in the ER was consistent with decompensated heart failure on chest imaging. Patient was started on diuretics and subsequently hospitalist service was consulted At the time of evaluation patient is alert oriented. He was able to answer the question. He denies recent NSAID intake or high salt diet. He is currently not on diuretics except for spironolactone. He denies recent sick contact, chest pain, lightheadedness but had a recent fall after tripping. 04/15-patient doing well. No overnight events. No concerns per staff. Diuresing well with over 3000 cc net negative fluid balance. Improving lymphedema and orthopnea. Patient currently resting in recliner. Persistent A. fib but rate controlled. Echocardiogram results pending. Pancytopenia noted on labs. Sodium 129, creatinine 1.5. Improved hypoxia now on room air. 04/16-patient doing remarkably well. Diuresed over 3500 cc. Lymphedema improving. Creatinine down from 1.8-1.2. Echocardiogram results pending. Sodium 132, ongoing PT OT/nutrition support. Anticipate discharge in 24 hours to SNF. - Constitutional Vitals: Vital Signs Temp Pulse Resp BP Pulse Ox 98.6 F 75 24 H 129/71 97 04/16/19 07:10 04/16/19 04:13 04/16/19 07:10 04/16/19 07:10 04/16/19 07:10 Period Temp Pulse Resp BP Sys/Terry Pulse Ox Last 24 Hr 97.6 F-99.1 F 75-80 14-24 107-129/60-78 92-97 Intake and Output 04/15/19 04/16/19 04/16/19 21:59 05:59 13:59 Intake Total 420 120 Output Total 450 675 Balance -30 -675 120 Weight 216 lb 11.2 oz Intake & Output: Intake & Output 04/15/19 04/16/19 04/16/19 21:59 05:59 13:59 Intake Total 420 120 Output Total 450 675 Balance -30 -675 120 Weight 216 lb 11.2 oz Intake: Oral 420 120 Output: Void Amount 450 675 Other: Meal Dinner Breakfast Percent of Meal Consumed 50% 100% Feeding Ability Independent Independent Urine Appearance Clear Clear Clear Urine Color Pale Pale Bright Yellow Urine Odor Normal Normal Normal # Voids 275 General appearance: no acute distress Exam: No overnight events alert oriented nonlabored breathing No anxiety No telemetry events Lymphedema remarkably improved Medical - PN: Obj Da - Labs CBC & Chem 7: 04/16/19 03:35 04/16/19 03:35 Labs: Abnormal Lab Results 04/16/19 04/16/19 04/15/19 03:35 03:35 03:40 WBC 3.4 L RBC 3.00 L Hgb 9.3 L Hct 28.0 L POC Hct RDW 16.2 H Plt Count 89 L Lymph # (Auto) Platelet Estimate Decreased A RBC Morphology Abnorm A Hypochromasia Anisocytosis 1+ A POC Sodium Sodium 132 L 129 L POC Chloride Chloride 90 L 87 L POC BUN BUN Creatinine 1.5 H POC Creatinine Glucose POC Glucose Uric Acid 9.2 H 8.8 H POC WB Ioniz Calcium Total Bilirubin 1.1 H 1.1 H Direct Bilirubin 0.5 H 0.5 H GGT 62 H CK-MB (CK-2) Troponin T NT-Pro-B Natriuret Pep 04/15/19 04/14/19 04/14/19 03:40 17:06 14:08 WBC 3.3 L RBC 2.90 L Hgb 9.0 L Hct 27.4 L POC Hct RDW 16.7 H Plt Count 83 L Lymph # (Auto) Platelet Estimate Decreased A RBC Morphology Abnorm A Hypochromasia 1+ A Anisocytosis 1+ A POC Sodium Sodium POC Chloride Chloride POC BUN BUN Creatinine POC Creatinine Glucose POC Glucose Uric Acid POC WB Ioniz Calcium Total Bilirubin Direct Bilirubin GGT CK-MB (CK-2) Troponin T 0.07 H* 0.08 H* NT-Pro-B Natriuret Pep 04/14/19 04/14/19 14:08 14:07 WBC 2.9 L RBC 3.20 L Hgb 9.9 L Hct 29.9 L POC Hct 31.0 L RDW 16.8 H Plt Count 86 L Lymph # (Auto) 0.5 L Platelet Estimate RBC Morphology Hypochromasia Anisocytosis POC Sodium 127 L Sodium 128 L POC Chloride 87 L Chloride 86 L POC BUN 27 H BUN 25 H Creatinine 1.8 H POC Creatinine 1.8 H Glucose 124 H POC Glucose 120 H Uric Acid POC WB Ioniz Calcium 1.10 L Total Bilirubin 1.1 H Direct Bilirubin GGT CK-MB (CK-2) 5.5 H Troponin T NT-Pro-B Natriuret Pep 8172.0 H Meds: Medications Acetaminophen (Tylenol) 650 mg PO Q4-6HP PRN PRN Reason: PAIN/FEVER > 101 Last Admin: 04/15/19 14:15 Dose: 650 mg Documented by: Albuterol/Ipratropium (Duoneb) 3 ml NEB QID [facility] Allopurinol (Zyloprim) 100 mg PO DAILY [facility] Ascorbic Acid (Vitamin C) 1,000 mg PO DAILY [facility] Aspirin (Aspirin) 81 mg PO DAILY [facility] Calcium/Vitamin D (Calcium W/Vit D3) 500 mg PO DAILY [facility] Doxazosin Mesylate (Cardura) 8 mg PO DAILY [facility] Ferrous Sulfate (Ferrous Sulfate) 325 mg PO QDAY [facility] Finasteride (Proscar) 5 mg PO QDAY [facility] Furosemide (Lasix) 40 mg IV BIDD [facility] Last Admin: 04/16/19 08:43 Dose: 40 mg Documented by: Gabapentin (Neurontin) 300 mg PO TID [facility] Guaifenesin/Codeine Phosphate (Robitussin Ac) 10 ml PO Q4HP PRN PRN Reason: Cough Potassium Chloride 40 meq/ (Dextrose) 520 mls @ 130 mls/hr IV UD PRN PRN Reason: K+ = or < 3.5 Magnesium Sulfate (Magnesium Sulfate) 2 gm in 50 mls @ 50 mls/hr IV UD PRN PRN Reason: MG = or < 1.7 Last Infusion: 04/15/19 10:15 Dose: Infused Documented by: Iron Carb/Multivit/[place]/Folic Acid (Multivitamin W/Minerals) 1 tab PO DAILY [facility] Last Admin: 04/16/19 08:43 Dose: 1 tab Documented by: Iron Carb/Multivit/[place]/Folic Acid (Multivitamin W/Minerals) 1 tab PO DAILY [facility] Levothyroxine Sodium (Synthroid) 88 mcg PO QAM [facility] Magnesium Oxide (Magnesium Oxide) 400 mg PO BID [facility] Melatonin (Melatonin 3mg Tablet) 3 mg PO HSP PRN PRN Reason: Insomnia Non-Formulary Medication (Bumetanide) 2 mg PO QID [facility] Non-Formulary Medication (Iron Sucrose Complex [Venofer]) 200 mg IV ONCE [facility] Omeprazole (Prilosec) 40 mg PO QAM [facility] Ondansetron HCl (Zofran) 4 mg IV Q4-6HP PRN PRN Reason: Nausea And Vomiting Potassium Chloride (Klor-Con) 40 meq PO DAILYP PRN PRN Reason: K+ < 3.5 Last Admin: 04/15/19 07:38 Dose: 40 meq Documented by: Potassium Chloride (Kdur) 20 meq PO BIDCC [facility] Last Admin: 04/16/19 08:43 Dose: 20 meq Documented by: Senna/Docusate Sodium (Senna Plus Tablet) 1 tab PO HS [facility] Last Admin: 04/15/19 21:00 Dose: Not Given Documented by: Simvastatin (Zocor) 10 mg PO HS [facility] Sodium Chloride (Saline Flush) 10 ml IV Q8 [facility] Last Admin: 04/16/19 07:47 Dose: 10 ml Documented by: Spironolactone (Aldactone) 25 mg PO QDAY [facility] Vitamin D (Vitamin D3) 1,000 unit PO DAILY [facility] Medical - PN: A/P - Time Spent With Patient Total time spent is greater than 50% in coordination of care (as documented) at patient's floor/unit and/or counseling patient: 25 - 35 minutes (1) CHF (congestive heart failure) Status: Chronic Assessment and plan: * Acute decompensated heart failure-diuresed over 3500 cc, improved shortness of breath/hypoxia/lymphedema. Echocardiogram EF 45 to 50%. Start beta-kaylah * Anasarca secondary to above. Improving with diuresis * Hypoxic respiratory failure -resolved now on room air * A Fib-currently rate controlled. Not on anticoagulation. Chads score 2(unclear why not on anticoagulation for CVA prophylaxis) * Hypokalemia replace as indicated * History of chronic kidney disease stage III-creatinine down to 1.2 from 1.8. Avoid nephrotoxins and continue close monitoring of renal function. * Hyperlipidemia continue statin * Hypothyroidism continue thyroxine * Neuropathy continue gabapentin * History of BPH continue finasteride/doxazosin * Chronic hypervolemic hyponatremia-secondary to CHF. 132 * History of chronic kidney disease stage III management nephrology as outpatient. * Chronic anemia management nephrology as outpatient. * History of pulmonary hypertension. Pulmonary artery pressures around 50 as per pulmonology office visit report. Managed by pulmonology * History of COPD continue bronchodilators * GERD continue PPI * History of gout continue allopurinol * Full code * Prophylaxis heparin Plan * Continue aggressive diuresis * Start long-acting beta-kaylah * Consider low-dose AMRITA/ARB if evidence of systolic dysfunction * Consider anticoagulation prior to discharge for CVA prophylaxis if patient agreeable * Daily weights/diuretics as outpatient * Pre-existing medical condition management on home meds * Electrolyte replacement as indicated * Discharge planning per case management Current Visit: Yes Medical - PN: Qual - VTE Deep Vein Thrombosis/Pulmonary Embolism Present on Admission: No
[2019-04-16] MEDS: IPRATROPIUM/ALBUTEROL 3 ML AMPUL.NEB NEB SCH ×4 (12:05→21:22)
[2019-04-16] MEDS: GABAPENTIN 300 MG CAPSULE PO SCH ×3 (12:20→20:39)
--- NOTE | 2019-04-16 13:03 | XRay Report ---
CLINICAL INFORMATION: Shortness of breath COMPARISON: 04/14/2019 FINDINGS: Moderate cardiomegaly is unchanged. Mediastinum is unremarkable. Pulmonary vessels show slight decrease in caliber over the brain mildly distended is mild interstitial edema in both lungs. Moderate right pleural effusion with compressive atelectasis right middle and lower lobes unchanged. IMPRESSION: Mild CHF - slight improvement Moderate right pleural effusion with compressive atelectasis right middle and lower lobes - stable Interpreted and Authenticated by: Korey Wallace 04/16/19
[2019-04-16] MEDS ORDERED: POTASSIUM CHLORIDE 40 MEQ in DEXTROSE 5% IN WATER 500 ML IV PRN (15:43)
[2019-04-16] MEDS ORDERED: MELATONIN 3 MG TABLET PO PRN (15:43)
[2019-04-16] MEDS ORDERED: guaiFENesin/CODEINE 10 ML UDC PO PRN (15:43)
[2019-04-16] MEDS ORDERED: ONDANSETRON 4 MG/2 ML VIAL IV PRN (15:43)
[2019-04-16] MEDS ORDERED: ACETAMINOPHEN 325 MG TABLET PO PRN (15:43)
[2019-04-16] MEDS ORDERED: POTASSIUM CHLORIDE 20 MEQ PACKET PO PRN (15:43)
[2019-04-16] MEDS ORDERED: MAGNESIUM SULFATE 2 GM/50 ML BAG IV PRN (15:43)
[2019-04-16] MEDS ORDERED: SIMVASTATIN 10 MG TABLET PO SCH ×2 (21:00)
[2019-04-16] MEDS ORDERED: MELATONIN 4 MG PO SCH (21:00)
[2019-04-16] MEDS ORDERED: SENNOSIDES/DOCUSATE SODIUM 1 TAB TABLET PO SCH (21:00)
[2019-04-17 05:15] LABS: Hematocrit 27.3 % (41.0-55.0); Hemoglobin 9.1 g/dL (13.5-16.5); Mean Cell Volume 93.6 fL (80.0-100.0); Mean Corpuscular HGB Conc 33.3 g/dL (31.0-36.0); Mean Platelet Volume 9.6 fL (7.4-10.4); Platelet Count 87 K/mcL (140-440); RBC 2.92 M/mcL (4.50-5.90); Red Cell Distribution Width 16.3 % (11.5-14.5); WBC 3.7 K/mcL (4.5-11.0)
[2019-04-17 05:37] LABS: ALT/SGPT 8 U/l (0-40); AST/SGOT 23 U/l (0-37); Albumin 3.7 gm/dL (3.2-5.2); Albumin/Globulin Ratio 1.7 (1.0-2.3); Alkaline Phosphatase 89 U/L (39-117); Bilirubin,Direct 0.4 mg/dL (0.0-0.3); Blood Urea Nitrogen 22 mg/dl (8-23); Calcium 9.1 mg/dl (8.6-10.4); Carbon Dioxide 29 mmol/L (22-30); Chloride 88 mmol/L (96-108); Globulin 2.2 gm/dL (2.2-3.7); Glomerular Filtration Rate 45; Glucose 111 mg/dL (70-105); Lactate Dehydrogenase 200 U/L (94-250); Phosphorous 3.6 mg/dL (2.7-4.5); Triglycerides 54 mg/dl (<150); Uric Acid 9.2 mg/dL (2.5-8.0)
[2019-04-17] MEDS: 0.9 % SODIUM CHLORIDE 10 ML SYRINGE IV SCH (07:14)
[2019-04-17] MEDS ORDERED: LEVOTHYROXINE 88 MCG TABLET PO SCH ×2 (07:30)
[2019-04-17 08:17] LABS: Anisocytosis 1+ (NONE SEEN); Band Neutrophils % 2 % (0-10); Eosinophils % (Manual) 4 % (0-7); Lymphocytes % 19 % (15-49); Monocytes % (Manual) 2 % (1-12); Platelet Estimate DECREASED (NORMAL); RBC Morphology ABNORM (NORMAL); Segmented Neutrophils % 73 % (38-78)
[2019-04-17] MEDS ORDERED: OMEPRAZOLE 20 MG CAPSULE PO SCH (09:00)
[2019-04-17] MEDS ORDERED: SPIRONOLACTONE 25 MG TABLET PO SCH (09:00)
[2019-04-17] MEDS ORDERED: MULTIVIT,THER IRON,CA,FA & MIN 1 TABLET PO SCH ×3 (09:00)
[2019-04-17] MEDS ORDERED: MAGNESIUM OXIDE 400 MG TABLET PO SCH ×2 (09:00)
[2019-04-17] MEDS ORDERED: ASCORBIC ACID 500 MG TABLET PO SCH ×2 (09:00)
[2019-04-17] MEDS ORDERED: METOPROLOL SUCCINATE 25 MG TAB.XL.24H PO SCH (09:00)
[2019-04-17] MEDS ORDERED: DOXAZOSIN 4 MG TABLET PO SCH (09:00)
[2019-04-17] MEDS ORDERED: CALCIUM W/VIT D3 500 MG TABLET PO SCH ×2 (09:00)
[2019-04-17] MEDS ORDERED: VITAMIN D3 1,000 UNIT TABLET PO SCH ×2 (09:00)
[2019-04-17] MEDS ORDERED: FINASTERIDE 5 MG TABLET PO SCH (09:00)
[2019-04-17] MEDS ORDERED: ALLOPURINOL 100 MG TABLET PO SCH (09:00)
[2019-04-17] MEDS ORDERED: FERROUS SULFATE 325 MG TABLET PO SCH (09:00)
[2019-04-17] MEDS ORDERED: ASPIRIN 81 MG TAB.CHEW PO SCH ×2 (09:00)
[2019-04-17] MEDS: IPRATROPIUM/ALBUTEROL 3 ML AMPUL.NEB NEB SCH ×2 (09:08→13:01)
[2019-04-17] MEDS ORDERED: MAGNESIUM SULFATE 2 GM/50 ML BAG IV ONE (09:27)
[2019-04-17] MEDS: POTASSIUM CHLORIDE 20 MEQ TABLET PO SCH (09:51)
[2019-04-17] MEDS: FUROSEMIDE 40 MG/4 ML VIAL IV SCH (09:53)
[2019-04-17] MEDS: GABAPENTIN 300 MG CAPSULE PO SCH (09:55)
--- NOTE | 2019-04-17 10:06 | Discharge Summary ---
Medical - DS: Prov Patient information: Note initiated : 04/17/19 at 10:02 am Service Date, if different from initiated Date: [] Patient: Bran Canas 88 y/o M admitted on 04/14/19 for SOB, lightheadedness, and swelling. Chief Complaint: [] Date of admission: 04/14/19 19:17 Discharge date: 04/17/19 Primary care physician: Kali Choudhury Consults: 04/14/19 Consult to Physician [CONS] Stat Comment: Consulting Provider: Ricardo Decker Reason For Exam: Physician to Consult Discharging clinician: Regino Zamora Medical - DS: Meds - Discharge Medications Prescriptions: Metoprolol Succinate [Toprol Xl] 12.5 mg PO DAILY #30 tab.xl.24h Active and Home Medications: Home Medications Aspirin [Adult Low Dose Aspirin EC] 81 mg PO DAILY 07/20/15 [History Confirmed 04/14/19 Last Taken 04/14/19 08:00] Allopurinol [Zyloprim] 100 mg PO DAILY 10/25/15 [History Confirmed 04/14/19 Last Taken 04/14/19 08:00] multivitamin,so-jtan-ogviprrq tablet 1 tab PO QDAY 11/21/15 [History Confirmed 04/14/19 Last Taken 04/14/19 08:00] cholecalciferol (vitamin D3) 1,000 unit capsule 1,000 unit PO QDAY cap 12/25/15 [History Confirmed 04/14/19 Last Taken 04/14/19 08:00] gabapentin 300 mg capsule 300 mg PO TID 12/14/17 [History Confirmed 04/14/19 Last Taken 04/14/19 08:00] levothyroxine 88 mcg tablet 88 mcg PO QAM tab 12/14/17 [History Confirmed 04/14/19 Last Taken 04/14/19 04:00] ipratropium-albuterol 0.5 mg-3 mg(2.5 mg base)/3 mL nebulization soln 3 ml INHALATION QID #180 ml 12/15/17 [Rx Confirmed 04/14/19 Last Taken 04/13/19 21:30] omeprazole 20 mg capsule,delayed release 40 mg PO QAM cap 12/15/17 [History Confirmed 04/14/19 Last Taken 04/14/19 08:00] ascorbic acid (vitamin C) 1,000 mg tablet 1 g PO QDAY tab 06/20/18 [History Confirmed 04/14/19 Last Taken 04/14/19 08:00] melatonin 1 mg tablet 4 mg PO HS tab 06/20/18 [History Confirmed 04/14/19 Last Taken 04/13/19 21:30 6] magnesium oxide 400 mg capsule 400 mg PO BID #360 cap 06/24/18 [Rx Confirmed 04/14/19 Last Taken 04/14/19 08:00] doxazosin 4 mg tablet 8 mg PO DAILY #90 tab 09/22/18 [Rx Confirmed 04/14/19 Last Taken 04/13/19 21:30] finasteride 5 mg tablet 5 mg PO QDAY #90 tab 09/22/18 [Rx Confirmed 04/14/19 Last Taken 04/13/19 21:30] cranberry 500 mg capsule 500 mg PO QDAY cap 11/29/18 [History Confirmed 04/14/19 Last Taken 04/14/19 08:00] pravastatin 20 mg tablet 20 mg PO QDAY 11/29/18 [History Confirmed 04/14/19 Last Taken 04/13/19 21:30] calcium carbonate-vitamin D3 600 mg (1,500 mg)-400 unit capsule 1 cap PO .QD cap 01/17/19 [History Confirmed 04/14/19 Last Taken 04/14/19 08:00] ferrous sulfate 325 mg (65 mg iron) tablet 325 mg PO QDAY tab 02/08/19 [History Confirmed 04/14/19 Last Taken Unknown] bumetanide 2 mg tablet 2 mg PO BID tab 02/21/19 [History Confirmed 04/16/19 Last Taken 04/14/19 07:15] spironolactone 25 mg tablet 25 mg PO QDAY #30 tab 04/14/19 [Rx Confirmed 04/14/19 Last Taken Unknown] Medical - DS: Hosp Hospital course: Mr. Canas is a 88 year old M with a history of diastolic heart failure, COPD/hypertension, atrial fibrillation, chronic hyponatremia and pulmonary h ypertension. Patient presents with increasing dyspnea along with 24 pound weight gain over the last week and a half. Patient has profound orthopnea unable to sleep over the last 10 days. He has been sleeping on his chair since. He has developed significant lymphedema along with lymph oozing lower extremity. He has had a significant decline in functional status and has been unable to perform activities of daily living in the past week. Today he was following up with urology and was referred to [facility] ER due to profound dyspnea. Initial work-up in the ER was consistent with decompensated heart failure on chest imaging. Patient was started on diuretics and subsequently hospitalist service was consulted At the time of evaluation patient is alert oriented. He was able to answer the question. He denies recent NSAID intake or high salt diet. He is currently not on diuretics except for spironolactone. He denies recent sick contact, chest pain, lightheadedness but had a recent fall after tripping. 04/15-patient doing well. No overnight events. No concerns per staff. Diuresing well with over 3000 cc net negative fluid balance. Improving lymphedema and orthopnea. Patient currently resting in recliner. Persistent A. fib but rate controlled. Echocardiogram results pending. Pancytopenia noted on labs. Sodium 129, creatinine 1.5. Improved hypoxia now on room air. 04/16-patient doing remarkably well. Diuresed over 3500 cc. Lymphedema improving. Creatinine down from 1.8-1.2. Echocardiogram results pending. Sodium 132, ongoing PT OT/nutrition support. Anticipate discharge in 24 hours to SNF. 04/17 Patient seen examined, no acute issues overnight, Seen by PT today, they report that the " The patient was able to gait train for 275 ft without a fww and gait trained with a slightly decreased step length while ambulating. The patient required 1 standing rest while gait training secondary to back pain." Patient admits to a high salt diet, He does wish to go home and feels back to baseline, has a daughter who would take care of him. Patient stable for discharge In Summary Patient admitted to the hospital with a diagnosis of CHF exacerbation, diastolic heart failure. Patient was diuresed with the help of IV Lasix he diuresed quite well, at the time of discharge he is back to baseline status, not needing any oxygen. He is -4370 mL since admission. The patient still has chronic right- sided pleural effusion, as well as bilateral lower extremity edema. I am not making any changes to the patient's diuretic regimen, but I will cut back on the patient's salt intake as well as fluid intake and see if this helps. She has atrial fibrillation, he is not on anticoagulation just aspirin 81. Would recommend discussion with PCP with regards to need for anticoagulation for stroke prophylaxis. Echocardiogram showed that the patient had left ventricular ejection fraction of 45 to 50%. Has been started on a low-dose of a beta-kaylah should also help with rate control. Patient has pancytopenia and not sure if this has been evaluated but will leave the work-up with the primary care provider Echo report Left ventricle is normal in size, moderate to severe LVH, left ventricular systolic function is mildly reduced septal motion is consistent with conduction abnormality right ventricle is mild to moderately dilated right and left atrium are dilated moderately. Mild to moderate mitral regurgitation, moderate pulmonary hypertension, dilated inferior vena cava aortic valve leaflets appear to be moderate to severely calcified no aortic stenosis and small pericardial effusion adjacent to the right atrial free wall. Discharge diagnosis: CHF exacerbation - Time Spent with Patient Total time spent providing and/or coordinating discharge services: Greater than 30 minutes Medical - DS: Exam - Constitutional Vitals: Vital Signs Temp Pulse Pulse Resp BP BP Pulse Ox 04/17/19 09:09 72 16 04/17/19 06:40 97.9 F 74 16 106/62 94 04/17/19 03:54 97.8 F 72 16 92/54 94 04/17/19 00:37 97.5 F 74 16 113/64 91 04/16/19 21:22 72 16 04/16/19 19:39 97.6 F 72 16 108/59 95 04/16/19 18:08 70 16 04/16/19 15:44 97.6 F 20 116/72 94 04/16/19 13:13 74 16 94 04/16/19 13:11 73 16 Intake and Output 04/16/19 04/17/19 04/17/19 21:59 05:59 13:59 Intake Total 440 100 Output Total 1400 200 Balance -960 -100 Intake: Oral 440 100 Output: Void Amount 1400 200 # of times incontinent of urine 0 Other: Meal Dinner Percent of Meal Consumed 50% Feeding Ability Independent Urine Appearance Clear Urine Color Bright Yellow # Voids 0 Weight 214 lb 12.8 oz Additional comments: Constitutional; Afebrile, cooperative, alert, not in distress. Eyes- No icterus, , No periorbital swelling Ears- Ext ear normal, hearing normal to conversation. Neck- Midline trachea, supple Respiratory system: Air Entry absent on right base (chr pleural effusion), no wheeze on exam today CVS- Rate normal, rhythm irregular, vel lower extremity pitting edema present. Abdomen- Soft nontender abdomen, no organomegaly, no tenderness, no guarding or rigidity, [employer]- AOOx3, moving all extremities, no gross focal deficit noted. Medical - DS: Data Labs on day of discharge: Labs from last 24 hours 04/17/19 04/17/19 04:03 04:03 WBC 3.7 L RBC 2.92 L Hgb 9.1 L Hct 27.3 L MCV 93.6 MCH 31.2 MCHC 33.3 RDW 16.3 H Plt Count 87 L MPV 9.6 Total Counted 100 Seg Neutrophils % 73 Band Neutrophils % 2 Lymphocytes % 19 Monocytes % (Manual) 2 Eosinophils % (Manual) 4 Platelet Estimate Decreased A RBC Morphology Abnorm A Anisocytosis 1+ A Sodium 131 L Potassium 3.6 Chloride 88 L Carbon Dioxide 29 Anion Gap 14.0 BUN 22 Creatinine 1.4 H GFR Calculation 45 Glucose 111 H Uric Acid 9.2 H Calcium 9.1 Phosphorus 3.6 Magnesium 1.6 Total Bilirubin 1.0 Direct Bilirubin 0.4 H GGT 57 AST 23 ALT 8 Alkaline Phosphatase 89 Lactate Dehydrogenase 200 Total Protein 5.9 Albumin 3.7 Globulin 2.2 Albumin/Globulin Ratio 1.7 Triglycerides 54 Medical - DS: A/P - Patient/Caregiver Discharge Instructions Activity: as per physical therapy, increase activity as tolerated Diet: Low Sodium (2gm), Cardiac Additional Instructions: Take your diuretic regime as before, bumex 2mg twice daily and aldactone (spironolactone 25mg daily) Please follow a strict low salt regime, Fluid restriction to 50 Fl Oz, (1500ml in 24 hrs) Follow up with your PCP in 1 week, make sure you PCP checks your labs, kidney function and makes sure they are stable Talk with your PCP regarding need for a blood thinner for stroke prophylaxis. Go to the Er if worsening symptoms, chest pain, shortness of breath or any other acute finding. - Follow up Plan Follow up with: Kali Choudhury MD [Primary Care Provider] - Disposition: Home Health Service Prognosis: Fair Rehab Potential: Fair I certify that the patient requires SNF services: No Overall status at discharge: patient is progressing back to baseline Medical - DS: Qual - VTE Deep Vein Thrombosis/Pulmonary Embolism Present on Admission: No
== END 2019-04-17 15:15 | disposition home health service (06) | DRG 291 ==
LOC: ED 13:36 → ICU 19:17 → MEDSUR 04-16 17:00
PROVIDERS: ADMIT Internal Medicine; ATTEND Internal Medicine

== ENCOUNTER 2019-11-07 12:09 | Inpatient (IN) ==
--- NOTE | 2019-11-07 12:53 | Emergency Department Note ---
SOB HPI - General Chief Complaint: Shortness of Breath/Dyspnea Stated Complaint: weight gain, shortness of breath, chest tightness. Time Seen by Provider: 11/07/19 12:25 Source: patient, family Mode of arrival: ambulatory Limitations: no limitations - History of Present Illness This patient is accompanied by his daughter, Ruth Ann, he is here at referral from Dr. Choudhury with 2 weeks of reported 16 lb wt gain, swollen legs, swollen abdomen, and has had some tightness in his chest. He has a history of pleural effusions in the past and CHF with chronic atrial fibrillation. He has been taking his normal diuretics. He has not consumed more sodium/salt than usual. He is on a low-sodium diet chronically. He was restarted on spironolactone 2 weeks ago after being off for about 6 months having been told previously that he was getting too much. He also has been started on Viagra not too long ago for pulmonary hypertension. He describes that laying on his back he has to breathe through his mouth because he cannot seem to get enough air. His abdomen has also been more distended in this last 1 month and this is a new problem. Has chronic atrial fibrillation. Because of easy bruising quite severely he has not been on an anticoagulant. REVIEW OF SYSTEMS: Denies fevers. Denies shivers/chills but feels cold all the time. No sweats No chest pain but feels a tiny bit of tightness but he is fairly nonspecific with this. Has some occasional mild cough and feeling more short of breath. Has occasional wheeze. Has had some phlegm. Has some abdominal pain in the past 7-10 days off and on. No nausea or vomiting or to has occasional constipation. Denies hematochezia. Denies dysuria Has some chronic back pain with no changes Feels some generalized weakness and lightheadedness. No anxiety or depression. Has some chronic itching to his skin. Scratching causes significant ecchymoses in his skin. Has some kidney dysfunction the last being about 29% per Dr. Urbina but it may have improved since that time. Has some chronic hyponatremia. - Related Data Home Medications Medication Instructions Recorded Confirmed Allopurinol [Zyloprim] 100 mg PO DAILY 10/25/15 10/26/19 multivitamin,nk-mexo-iskhpocl 1 tab PO QDAY 11/21/15 10/26/19 cholecalciferol (vitamin D3) 25 1,000 unit PO QDAY cap 12/25/15 10/26/19 mcg (1,000 unit) capsule levothyroxine 88 mcg tablet 88 mcg PO QAM tab 12/14/17 10/26/19 omeprazole 20 mg capsule,delayed 40 mg PO QAM cap 12/15/17 10/26/19 release ascorbic acid (vitamin C) 1,000 mg 1 g PO QDAY tab 06/20/18 10/26/19 tablet cranberry 500 mg capsule 500 mg PO QDAY cap 11/29/18 10/26/19 calcium carbonate-vitamin D3 600 1 cap PO .QD cap 01/17/19 10/26/19 mg (1,500 mg)-400 unit capsule ferrous sulfate 325 mg (65 mg 325 mg PO QDAY tab 02/08/19 10/26/19 iron) tablet acetaminophen 500 mg capsule 500 mg PO Q6H PRN 05/29/19 10/26/19 loratadine 10 mg tablet 10 mg PO QDAY 05/29/19 10/26/19 melatonin 1 mg tablet 5 mg PO HS tab 05/29/19 10/26/19 pravastatin 20 mg tablet 40 mg PO QDAY tab 05/29/19 10/26/19 bumetanide 2 mg tablet 2 mg PO TID tab 10/12/19 10/26/19 fluticasone propionate 50 1 inh INHALATION QDAY each 10/12/19 10/26/19 mcg/actuation blister powder for inhalation gabapentin 300 mg capsule 300 mg PO TID cap 10/26/19 10/26/19 Previous Rx's Medication Instructions Recorded ipratropium 0.5 mg-albuterol 3 mg 3 ml INHALATION QID #180 ml 12/15/17 (2.5 mg base)/3 mL nebulization soln magnesium oxide 400 mg PO BID #360 cap 06/24/18 doxazosin 4 mg tablet 8 mg PO DAILY #90 tab 09/22/18 finasteride 5 mg tablet 5 mg PO QDAY #90 tab 09/22/18 Metoprolol Succinate [Toprol Xl] 12.5 mg PO DAILY #30 tab.xl.24h 04/17/19 spironolactone 25 mg tablet 25 mg PO QDAY #90 tab 10/26/19 Allergies Allergy/AdvReac Type Severity Reaction Status Date / Time Amoxicillin AdvReac Mild Nausea Verified 11/07/19 12:12 sulfamethoxazole AdvReac Mild Nausea Verified 11/07/19 12:12 [From Bactrim] trimethoprim [From Bactrim] AdvReac Mild Nausea Verified 11/07/19 12:12 Past Medical History - Past Medical History [facility] Narrative: Medical History (Last Updated 11/07/19 @ 12:57 by Heron Carpio DO) CHF (congestive heart failure) (Chronic) Diastolic dysfunction (Chronic) Atrial fibrillation (Chronic) Pulmonary hypertension (Chronic) Chronic hyponatremia (Chronic) Pleural effusion due to CHF (congestive heart failure) (Chronic) Cardiomegaly (Chronic) Hypercholesteremia (Chronic) Hypertension (Chronic) Chronic kidney disease, stage III (moderate) (Chronic) SIADH (syndrome of inappropriate ADH production) (Chronic) Chronic obstructive pulmonary disease (Chronic) Anemia (Chronic) Localized edema due to fluid overload (Chronic) Allergic rhinitis due to other allergen (Chronic) Primary generalized (osteo)arthritis (Chronic) Chronic musculoskeletal pain (Chronic) Pure hypercholesterolemia (Chronic) Neuropathy, idiopathic (Chronic) penitentiary (current) use of aspirin (Chronic) Hypothyroidism (Chronic) Gout (Chronic) Exertional dyspnea (Chronic) Peripheral edema (Chronic) Abnormal PFTs (pulmonary function tests) (Chronic) Seasonal allergies (Chronic) Vitamin D deficiency (Chronic) Hip fracture, right (Chronic) Hyponatremia with decreased serum osmolality (Resolved) Shortness of breath (Resolved) Onychomycosis (Inactive) Past Surgical History (Last Reviewed 10/26/19 @ 14:40 by Kelsea Lacy RN) H/O hernia repair (Chronic) History of bilateral knee replacement (Chronic) History of colonoscopy (Chronic 10/25/15) History of knee replacement (Chronic) History of tonsillectomy (Chronic) History of total right hip arthroplasty (Chronic) Hx of shoulder surgery (Chronic) Family History (Last Reviewed 10/26/19 @ 14:40 by Kelsea Lacy RN) Brother Cardiac disease Diabetes Mother Diabetes Medical history: Denies: cancer, CVA, DVT, DM, myocardial infarction, pulmonary embolus, TIA Psychiatric history: Denies: anxiety, depression - Social History smoking status: Former smoker Alcohol use: Reports: None Drug use: Reports: none. Denies: marijuana Physical Exam Limitations: no limitations General appearance: alert, in no apparent distress Head: atraumatic, normocephalic Eye: Present: normal appearance, PERRL, EOMI, other (IOL reflexion bilateral.). Absent: scleral icterus, conjunctival injection ENT: Present: normal oropharynx, mucous membranes dry, other (lips very dry. Residue of oral tobacco chew present.) Neck: Present: trachea midline. Absent: lymphadenopathy, thyromegaly Chest: Present: symmetric chest wall rise Respiratory: Present: other. Absent: respiratory distress, wheezes, stridor, accessory muscle use, prolonged expiratory phase Cardiovascular: Present: regular rate, normal rhythm. Absent: systolic murmur, diastolic murmur Abdominal: Present: soft, distention (Moderate to severe but not tense.), tenderness (Slight or mild), other (Dull to percussion up two thirds of the way up the dome of the distended abdomen with him at 30 degrees.). Absent: guarding, rebound, rigidity, organomegaly, mass Extremities: Present: pedal edema, pretibial edema (3+ edema including trace into the thighs bilaterally. Also trace in the buttocks.), other (Has some pink erythematous change and ecchymotic changes.). Absent: calf tenderness Back: Absent: CVA tenderness (R), CVA tenderness (L), spinous process tenderness Neurological: Present: alert, oriented X3 Psychiatric: Present: flat affect, serious. Absent: depressed, agitated, anxious Skin: Present: warm, dry, other (see extremities description above.) Course Vital Signs Temperature 97.2 F 11/07/19 12:09 Pulse Rate 87 11/07/19 12:09 Respiratory Rate 16 11/07/19 12:09 Blood Pressure 123/70 11/07/19 12:09 Pulse Oximetry (%) 96 11/07/19 12:09 Temperature 97.2 F 11/07/19 12:09 Pulse Rate 60 11/07/19 19:18 Respiratory Rate 14 11/07/19 19:18 Blood Pressure 113/66 11/07/19 19:17 Pulse Oximetry (%) 93 11/07/19 19:18 Shortness of Breath/Dyspnea - [facility] Narrative Medical decision making narrative: 12:40 PM - interviewed and examined. Severe edema in the lower extremities with distended abdomen and dull sounds to respirations on the right side but he is more right side-lying. Probable pleural effusion since he has had this before now with anasarca. Will do basic labs. Currently he is oxygenating adequately. EKG demonstrates atrial fibrillation at a rate in the 60s without ACS abnormali ties but LVH and nonspecific IVCD 1:45 PM - chest x-ray results: 1. Moderate CHF 2. Large right pleural effusion resulting in complete right lower and middle lobe compressive atelectasis I will seek thoracentesis via radiology. Labs are similar to previous with a persisting pancytopenia. I briefly brought this to the awareness of radiology who will be doing ultrasound-guided thoracentesis. 6:12 PM -serial troponin pending CT abdomen results 1. 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 Spleen is moderately enlarged with moderate ascites throughout the abdomen and pelvis. 2. Moderate right pleural effusion. Segmental consolidative atelectasis posterior right lower and right middle lobes with groundglass airspace disease throughout the right middle and lower lobes. Small left pleural effusion with minor atelectasis left base. Suspect pneumonia or aspiration. 3. Marked cardiomegaly 4. Large central pulmonary arteries suggesting pulmonary hypertension. 5. Large amount of subcutaneous edema within the flank regions of the chest and upper abdomen. - Lab Data Result diagrams: 11/07/19 12:50 11/07/19 12:50 Lab Results 11/07/19 11/07/19 11/07/19 Range/Units 12:50 12:50 12:50 WBC 3.1 L (4.50-11.00) K/mcL RBC 3.13 L (4.63-6.08) M/mcL Hgb 9.8 L (13.7-17.5) g/dL Hct 29.3 L (40.1-51.0) % MCV 93.6 (80.0-100.0) fL MCH 31.3 (26.0-34.0) pg MCHC 33.4 (31.0-36.0) g/dL RDW 15.8 H (11.5-14.5) % Plt Count 68 L (140-440) K/mcL MPV 11.7 H (7.4-10.4) fL Gran % 71.7 (38.0-78.0) % Lymph % (Auto) 14.0 L (15.5-49.0) % [place] % (Auto) 8.6 (1.0-12.0) % Eos % (Auto) 5.1 (0.0-7.0) % Baso % (Auto) 0.6 (0.0-2.0) % Gran # 2.25 (1.80-8.00) K/mcL Lymph # (Auto) 0.44 L (1.50-4.80) K/mcL [place] # (Auto) 0.27 (0.10-0.90) K/mcL Eos # (Auto) 0.16 (0.00-0.70) K/mcL Baso # (Auto) 0.02 (0.00-0.30) K/mcL PT (11.9-14.5) sec INR (0.9-1.1) Sodium 123 L (133-145) mmol/L Potassium 4.7 (3.3-5.1) mmol/L Chloride 83 L (96-108) mmol/L Carbon Dioxide 28 (22-30) mmol/L Anion Gap 12.0 (8-16) BUN 36 H (8-23) mg/dl Creatinine 1.9 H (0.7-1.2) mg/dl GFR Calculation 31 Glucose 97 (70-105) mg/dL Calcium 9.3 (8.6-10.4) mg/dl Total Bilirubin 0.9 (0.0-1.0) mg/dL AST 27 (0-37) U/l ALT 10 (0-40) U/l Alkaline Phosphatase 95 (39-117) U/L Troponin T 0.11 H* (0-0.03) ng/ml NT-Pro-B Natriuret Pep 03991.0 H (0-450) pg/ml Total Protein 6.5 (5.9-8.4) gm/dL Albumin 3.9 (3.2-5.2) gm/dL Globulin 2.6 (2.2-3.7) gm/dL Albumin/Globulin Ratio 1.5 (1.0-2.3) 11/07/19 11/07/19 Range/Units 12:51 17:47 WBC (4.50-11.00) K/mcL RBC (4.63-6.08) M/mcL Hgb (13.7-17.5) g/dL Hct (40.1-51.0) % MCV (80.0-100.0) fL MCH (26.0-34.0) pg MCHC (31.0-36.0) g/dL RDW (11.5-14.5) % Plt Count (140-440) K/mcL MPV (7.4-10.4) fL Gran % (38.0-78.0) % Lymph % (Auto) (15.5-49.0) % [place] % (Auto) (1.0-12.0) % Eos % (Auto) (0.0-7.0) % Baso % (Auto) (0.0-2.0) % Gran # (1.80-8.00) K/mcL Lymph # (Auto) (1.50-4.80) K/mcL [place] # (Auto) (0.10-0.90) K/mcL Eos # (Auto) (0.00-0.70) K/mcL Baso # (Auto) (0.00-0.30) K/mcL PT 17.0 H (11.9-14.5) sec INR 1.3 H (0.9-1.1) Sodium (133-145) mmol/L Potassium (3.3-5.1) mmol/L Chloride (96-108) mmol/L Carbon Dioxide (22-30) mmol/L Anion Gap (8-16) BUN (8-23) mg/dl Creatinine (0.7-1.2) mg/dl GFR Calculation Glucose (70-105) mg/dL Calcium (8.6-10.4) mg/dl Total Bilirubin (0.0-1.0) mg/dL AST (0-37) U/l ALT (0-40) U/l Alkaline Phosphatase (39-117) U/L Troponin T 0.09 H* (0-0.03) ng/ml NT-Pro-B Natriuret Pep (0-450) pg/ml Total Protein (5.9-8.4) gm/dL Albumin (3.2-5.2) gm/dL Globulin (2.2-3.7) gm/dL Albumin/Globulin Ratio (1.0-2.3) Disposition Pt seen by CHILD AND FAMILY COUNSELOR/PA only: No Clinical Impression: Pleural effusion, Hyponatremia, Anasarca, Portal hypertension, Pulmonary hypertension CHF (congestive heart failure) Qualifiers: Heart failure type: combined systolic and diastolic Heart failure chronicity: acute on chronic Qualified Code(s): I50.43 - Acute on chronic combined systolic (congestive) and diastolic (congestive) heart failure Summary: Patient was given 80 mg of Lasix IV. With the CT scan not showing acute major, and serial troponin at 0.09 (first one 0.11), I spoke with hospitalist, Dr. Ryan Gallagher, who kindly accepts this patient for in patient further treatment/evaluation. See admitting diagnoses. Disposition: Xfer As Inpt ([facility]) Condition: Fair Referrals: Kali Choudhury MD [Primary Care Provider] -
--- NOTE | 2019-11-07 13:14 | XRay Report ---
CLINICAL INFORMATION: short of breath; hx of pleural effus COMPARISON: 10/19/2019 FINDINGS: Marked cardiomegaly is unchanged. Mediastinum is unremarkable. Pulmonary vessels are mildly distended and there is moderate interstitial edema in the visualized lung. Right pleural effusion has increased pneumatically and is now large resulting in complete compressive right middle and lower lobe atelectasis. IMPRESSION: 1. Moderate CHF 2. Large right pleural effusion resulting in complete right lower and middle lobe compressive atelectasis Interpreted and Authenticated by: Korey Wallace 11/07/19
[2019-11-07 13:24] LABS: Basophils # (Auto) 0.02 K/mcL (0.00-0.30); Basophils % (Auto) 0.6 % (0.0-2.0); Eosinophils # (Auto) 0.16 K/mcL (0.00-0.70); Eosinophils % (Auto) 5.1 % (0.0-7.0); Granulocytes % (Auto) 71.7 % (38.0-78.0); Hematocrit 29.3 % (40.1-51.0); Hemoglobin 9.8 g/dL (13.7-17.5); Lymphocytes # (Auto) 0.44 K/mcL (1.50-4.80); Mean Cell Volume 93.6 fL (80.0-100.0); Mean Corpuscular HGB Conc 33.4 g/dL (31.0-36.0); Mean Platelet Volume 11.7 fL (7.4-10.4); Monocytes # (Auto) 0.27 K/mcL (0.10-0.90); Monocytes % (Auto) 8.6 % (1.0-12.0); Platelet Count 68 K/mcL (140-440); RBC 3.13 M/mcL (4.63-6.08); Red Cell Distribution Width 15.8 % (11.5-14.5); WBC 3.1 K/mcL (4.50-11.00)
[2019-11-07 13:29] LABS: INR 1.3 (0.9-1.1)
[2019-11-07 13:47] LABS: ALT/SGPT 10 U/l (0-40); AST/SGOT 27 U/l (0-37); Albumin 3.9 gm/dL (3.2-5.2); Albumin/Globulin Ratio 1.5 (1.0-2.3); Alkaline Phosphatase 95 U/L (39-117); Bilirubin,Total 0.9 mg/dL (0.0-1.0); Blood Urea Nitrogen 36 mg/dl (8-23); Calcium 9.3 mg/dl (8.6-10.4); Carbon Dioxide 28 mmol/L (22-30); Globulin 2.6 gm/dL (2.2-3.7); Glomerular Filtration Rate 31; Glucose 97 mg/dL (70-105)
[2019-11-07 13:57] LABS: Chloride 83 mmol/L (96-108)
--- NOTE | 2019-11-07 15:09 | XRay Report ---
CLINICAL INFORMATION: POST THORA COMPARISON: 11/07/2019 FINDINGS: Marked cardiomegaly is unchanged. Mediastinum is unremarkable. Pulmonary vessels remain slightly distended and is mild interstitial edema throughout both lungs. Following right thoracentesis, there is a moderate residual right pleural effusion but the right middle and lower lobes are much better aerated. No pneumothorax or other complication. IMPRESSION: Following right thoracentesis, moderate residual effusion but the right middle and lower lobes are much better aerated. Mild CHF improved Interpreted and Authenticated by: Korey Wallace 11/07/19
--- NOTE | 2019-11-07 15:21 | Ultrasound Report ---
Ultrasound-guided thoracentesis CLINICAL INFORMATION: Large right pleural effusion TECHNIQUE: Procedure and risks including possibility of bleeding, infection, and pneumothorax were explained to the patient. They understood and wished to proceed. With the patient in upright position, the fluid was first sonographically localized over the posterior right 10th intercostal space at posterior axillary line. The skin overlying this region was marked, prepped and locally anesthetized with 1% lidocaine using a 25-gauge needle to the level the parietal pleura. An 18-gauge Cardium Therapeuticseh needle was then advanced under sonographic guidance into the pleural fluid and approximately 1.8 L of simple appearing transudative fluid was aspirated. Post procedure scanning shows only minimal residual fluid. Patient tolerated procedure well without apparent complication. Follow-up chest x-ray to be obtained IMPRESSION: Successful thoracentesis yielding 1.8 L of transudative appearing simple pleural fluid. No apparent complication Interpreted and Authenticated by: Korey Wallace 11/07/19
[2019-11-07] MEDS ORDERED: FUROSEMIDE 40 MG/4 ML VIAL IV ONE (17:20)
--- NOTE | 2019-11-07 17:47 | Cat Scan Report ---
CLINICAL INFORMATION: Abdominal pain and distention, COMPARISON: 09/05/[address] TECHNIQUE: 0.625 mm helical slices were obtained from the mid heart through the subtrochanteric regions. Following reconstruction, 2.5 mm sagittal, coronal and axial reformatted images were processed and reviewed at bone and soft tissue windows.The exam was performed using radiation dose optimization techniques including, but not limited to, automated exposure control, adjustment of the mA and/or kV according to patient size and use of iterative reconstruction technique. FINDINGS: Lung bases show moderate right and small left pleural effusion with subsegmental consolidated atelectasis posterior right lower and right middle lobes. There also groundglass infiltrates throughout the right lower lobe and visualized right middle lobe. Small round last infiltrates in the posterior left lower lobe. Heart is moderately enlarged with very heavy calcific plaque in the coronary arteries. The central pulmonary arteries enlarged 4.3 cm compatible with pulmonary hypertension Abdominal images show the liver is slightly decreased in size with inhomogeneous attenuation and minimal irregularity of the cortex digesting cirrhosis. No focal hepatic lesions. Portal vein is widely dilated and there are mild varices in the perigastric and perisplenic region. Spleen is enlarged with a vertical dimension of 17.5 cm. There is moderate ascites in the upper abdomen and pelvis. Gallbladder and bile ducts are normal. The kidneys, both adrenal glands, pancreas and aorta are unremarkable. No free air. Stomach, small and large bowel show mild ileus pattern. A few sigmoid diverticuli appreciated Pelvic images show normal urinary bladder and prostate for age. Bone windows show right hip prostheses anatomically aligned. Lower thoracic spine no syndesmophytes suggestive of ankylosing spondylitis. IMPRESSION: 1. 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 Spleen is moderately enlarged with moderate ascites throughout the abdomen and pelvis. 2. Moderate right pleural effusion. Segmental consolidative atelectasis posterior right lower and right middle lobes with groundglass airspace disease throughout the right middle and lower lobes. Small left pleural effusion with minor atelectasis left base. Suspect pneumonia or aspiration. 3. Marked cardiomegaly 4. Large central pulmonary arteries suggesting pulmonary hypertension. 5. Large amount of subcutaneous edema within the flank regions of the chest and upper abdomen. Interpreted and Authenticated by: Korey Wallace 11/07/19
--- NOTE | 2019-11-07 17:48 | Ultrasound Report ---
CLINICAL INFORMATION: ascites, anasarca COMPARISON: None. FINDINGS: Moderate ascites present right upper quadrant. IMPRESSION: Moderate ascites right upper quadrant. Interpreted and Authenticated by: Korey Wallace 11/07/19
--- NOTE | 2019-11-07 19:47 | Internal Med History&Physical ---
Medical - H&P: [facility] Patient information: Note initiated : 11/07/19 at 7:45 pm Service Date, if different from initiated Date: [] Patient: Bran Canas a 88 y/o M admitted on for weight gain, shortness of breath, chest tightness.. Chief Complaint: [] History of present illness: Mr. Canas is a 88 year old M Presents the ED referred by his primary care provider Dr. Choudhury for a month of increased swelling and weight gain 16 pounds. Swollen legs abdomen and shortness of breath. history of pleural effusions and heart failure and chronic A fibrillation. In the ED is found a large right-sided pleural effusion had thoracentesis of 1.8 L. Feels like his breathing is little improved after the thoracentesis. He is on Bumex at home and was recently started on spironolactone couple weeks ago. Started 1 week ago sildenafil for pulmonary arterial hypertension. Has chronic hyponatremia and pancytopenia. 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 Urbina Describes orthopnea. Has not been on anticoagulation for chronic atrial fibrillation because of severe bruising. Review of Systems: Positive as above. Denies headache/fever/chills/nausea/vomiting/chest or abdominal pain/cough/diarrhea. Remaining 10 point review of system reviewed negative. Medical - H&P: [facility] Medical history: Medical History (Last Updated 11/07/19 @ 12:57 by Heron Carpio DO) CHF (congestive heart failure) (Chronic) Diastolic dysfunction (Chronic) Atrial fibrillation (Chronic) Pulmonary hypertension (Chronic) Chronic hyponatremia (Chronic) Pleural effusion due to CHF (congestive heart failure) (Chronic) Cardiomegaly (Chronic) Hypercholesteremia (Chronic) Hypertension (Chronic) Chronic kidney disease, stage III (moderate) (Chronic) SIADH (syndrome of inappropriate ADH production) (Chronic) Chronic obstructive pulmonary disease (Chronic) Anemia (Chronic) Localized edema due to fluid overload (Chronic) Allergic rhinitis due to other allergen (Chronic) Primary generalized (osteo)arthritis (Chronic) Chronic musculoskeletal pain (Chronic) Pure hypercholesterolemia (Chronic) Neuropathy, idiopathic (Chronic) 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) use of aspirin (Chronic) Hypothyroidism (Chronic) Gout (Chronic) Exertional dyspnea (Chronic) Peripheral edema (Chronic) Abnormal PFTs (pulmonary function tests) (Chronic) Seasonal allergies (Chronic) Vitamin D deficiency (Chronic) Hip fracture, right (Chronic) Hyponatremia with decreased serum osmolality (Resolved) Shortness of breath (Resolved) Onychomycosis (Inactive) Past Surgical History (Last Reviewed 10/26/19 @ 14:40 by Kelsea Lacy RN) H/O hernia repair (Chronic) History of bilateral knee replacement (Chronic) History of colonoscopy (Chronic 10/25/15) History of knee replacement (Chronic) History of tonsillectomy (Chronic) History of total right hip arthroplasty (Chronic) Hx of shoulder surgery (Chronic) Family History (Last Reviewed 10/26/19 @ 14:40 by Kelsea Lacy RN) Brother Cardiac disease Diabetes Mother Diabetes Social history: Quit smoking 1991 Was a heavy drinker in the past but does not drink but rarely anymore Uses a cane and a walker to ambulate Lives at home with the daughter who is the POA Medical - H&P: Meds Home Medications Medication Instructions Recorded Confirmed Type Allopurinol [Zyloprim] 100 mg PO DAILY 10/25/15 10/26/19 History multivitamin,[id number] 1 tab PO QDAY 11/21/15 10/26/19 History cholecalciferol (vitamin D3) 25 1,000 unit PO QDAY cap 12/25/15 10/26/19 History mcg (1,000 unit) capsule levothyroxine 88 mcg tablet 88 mcg PO QAM tab 12/14/17 10/26/19 History ipratropium 0.5 mg-albuterol 3 mg 3 ml INHALATION QID #180 ml 12/15/17 10/26/19 Rx (2.5 mg base)/3 mL nebulization soln omeprazole 20 mg capsule,delayed 40 mg PO QAM cap 12/15/17 10/26/19 History release ascorbic acid (vitamin C) 1,000 mg 1 g PO QDAY tab 06/20/18 10/26/19 History tablet magnesium oxide 400 mg PO BID #360 cap 06/24/18 10/26/19 Rx doxazosin 4 mg tablet 8 mg PO DAILY #90 tab 09/22/18 10/26/19 Rx finasteride 5 mg tablet 5 mg PO QDAY #90 tab 09/22/18 10/26/19 Rx cranberry 500 mg capsule 500 mg PO QDAY cap 11/29/18 10/26/19 History calcium carbonate-vitamin D3 600 1 cap PO .QD cap 01/17/19 10/26/19 History mg (1,500 mg)-400 unit capsule ferrous sulfate 325 mg (65 mg 325 mg PO QDAY tab 02/08/19 10/26/19 History iron) tablet Metoprolol Succinate [Toprol Xl] 12.5 mg PO DAILY #30 tab.xl.24h 04/17/19 10/26/19 Rx acetaminophen 500 mg capsule 500 mg PO Q6H PRN 05/29/19 10/26/19 History loratadine 10 mg tablet 10 mg PO QDAY 05/29/19 10/26/19 History melatonin 1 mg tablet 5 mg PO HS tab 05/29/19 10/26/19 History pravastatin 20 mg tablet 40 mg PO QDAY tab 05/29/19 10/26/19 History bumetanide 2 mg tablet 2 mg PO TID tab 10/12/19 10/26/19 History fluticasone propionate 50 1 inh INHALATION QDAY each 10/12/19 10/26/19 History mcg/actuation blister powder for inhalation gabapentin 300 mg capsule 300 mg PO TID cap 10/26/19 10/26/19 History spironolactone 25 mg tablet 25 mg PO QDAY #90 tab 10/26/19 10/26/19 Rx Sildenafil Citrate [Revatio] 20 mg PO TID 11/07/19 11/07/19 History Allergies Allergy/AdvReac Type Severity Reaction Status Date / Time Amoxicillin AdvReac Mild Nausea Verified 11/07/19 12:12 sulfamethoxazole AdvReac Mild Nausea Verified 11/07/19 12:12 [From Bactrim] trimethoprim [From Bactrim] AdvReac Mild Nausea Verified 11/07/19 12:12 Medical - H&P: Exam - Constitutional Vitals: Temp Pulse Resp BP Pulse Ox 97.2 F 61 15 116/72 94 11/07/19 12:09 11/07/19 19:44 11/07/19 19:44 11/07/19 19:31 11/07/19 19:44 Exam: General: Alert, Awake, No acute Distress Eyes/N/T: EOMI, PERRL, Head/Neck: neck supple, normocephalic atraumatic CV: irreg irreg, No murmurs, Pulm: Diminished b/l, mild exp b/l wheezing, rales right base Abd: soft, nontender, +BS x4 Ext: no clubbing/cyanosis, b/l LE edema 3+ Neuro: Alert, no focal deficits, moves all extremities, CN 2-12 grossly intact, symmetrical strength b/l upper/lower, sensations intact b/l upper/lower Skin: warm/dry Medical - H&P: Reslt - Labs CBC & Chem 7: 11/07/19 12:50 11/07/19 12:50 Labs: Short CBC 11/07/19 Range/Units 12:50 WBC 3.1 L (4.50-11.00) K/mcL Hgb 9.8 L (13.7-17.5) g/dL Hct 29.3 L (40.1-51.0) % Plt Count 68 L (140-440) K/mcL BMP 11/07/19 12:50 Sodium 123 L Potassium 4.7 Chloride 83 L Carbon Dioxide 28 BUN 36 H Creatinine 1.9 H Glucose 97 Calcium 9.3 Cardiac Enzymes 11/07/19 11/07/19 Range/Units 12:50 17:47 Troponin T 0.11 H* 0.09 H* (0-0.03) ng/ml Liver Function 11/07/19 Range/Units 12:50 Total Bilirubin 0.9 (0.0-1.0) mg/dL AST 27 (0-37) U/l ALT 10 (0-40) U/l Alkaline Phosphatase 95 (39-117) U/L Albumin 3.9 (3.2-5.2) gm/dL Medical - H&P: A/P - Narrative A/P Narrative: A: *Acute on chronic right heart failure (Cor Pulmonale) and Left heart failure systolic/diastolic w/Anasarca: -long-term prognosis guarded -October echo does not report reduced RV systolic but April 2019 reports moderately reduced RV systolic fxn *Pulmonary arterial hypertension: -started on sildenafil 1 week ago by PCP *Atrial fibrillation: Has not been on anticoagulation because of severe bruising, understands increased stroke risk *Obesity: *chronic Pancytopenia, (leukopenia/anemia/thrombocytopenia): *Appears to have Cirrhosis: -CT with mild cirrhosis on imaging/portal HTN and perisplenic/gastric varices (possibly related to previous etoh use) *Hyponatremia, 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 *CKD IIIb: *COPD (no home O2) *Hypothyroidism: *Neuropathy: *GERD: *BPH: *h/o GI bleed from [place] lesion @ [facility] 06/2019 s/p clipping: P: -lasix gtt, aldactone -monitor I's/O's, weights, UOP -monitor sodium and other electrolytes -echo done in October, obtain -cont home sildenafil -cont BB - -pt/ot -f/u with pulmonology and cardiology outpt and GI for cirrhosis -f/u with PCP/Cardio regarding anticoagulation for Afib -ppx: heparin (hold if PLT<50k)/home ppi No CPR, Intubation ok
[2019-11-07] MEDS ORDERED: ACETAMINOPHEN 325 MG TABLET PO ONE (20:32)
[2019-11-07] MEDS ORDERED: ONDANSETRON 4 MG/2 ML VIAL IV PRN (20:57)
[2019-11-07] MEDS ORDERED: POLYETHYLENE GLYCOL 3350 17 GM PACKET PO PRN (20:57)
[2019-11-07] MEDS ORDERED: IPRATROPIUM/ALBUTEROL 3 ML AMPUL.NEB NEB PRN (20:57)
[2019-11-07] MEDS ORDERED: POTASSIUM CHLORIDE 40 MEQ in DEXTROSE 5% IN WATER 500 ML IV PRN (20:57)
[2019-11-07] MEDS ORDERED: METOPROLOL TARTRATE 5 MG/5 ML VIAL IV PRN (20:57)
[2019-11-07] MEDS ORDERED: SENNOSIDES 1 TABLET PO PRN (20:57)
[2019-11-07] MEDS ORDERED: POTASSIUM CHLORIDE 20 MEQ TABLET PO PRN ×2 (20:57)
[2019-11-07] MEDS ORDERED: MAGNESIUM SULFATE 2 GM/50 ML BAG IV PRN (20:57)
[2019-11-07] MEDS ORDERED: ACETAMINOPHEN 325 MG TABLET PO PRN (20:57)
[2019-11-07] MEDS ORDERED: ACETAMINOPHEN 500 MG PO PRN (21:22)
[2019-11-07] MEDS ORDERED: FUROSEMIDE 100 MG/10 ML VIAL IV ONE (21:23)
[2019-11-07] MEDS: FUROSEMIDE 250 MG in 0.9 % SODIUM CHLORIDE 225 ML IV SCH (21:50)
[2019-11-07] MEDS: HEPARIN 5,000 UNIT/ML VIAL SQ SCH (22:00)
[2019-11-07] MEDS: GABAPENTIN 300 MG CAPSULE PO SCH (23:08)
[2019-11-07] MEDS: 0.9 % SODIUM CHLORIDE 10 ML SYRINGE IV SCH (23:09)
[2019-11-07] MEDS: SILDENAFIL CITRATE 20 MG PO SCH (23:09)
[2019-11-07] MEDS: DOCUSATE SODIUM 100 MG CAPSULE PO SCH (23:10)
[2019-11-08] MEDS: 0.9 % SODIUM CHLORIDE 10 ML SYRINGE IV SCH ×2 (05:40→15:59)
[2019-11-08 07:11] LABS: Basophils # (Auto) 0.02 K/mcL (0.00-0.30); Basophils % (Auto) 0.6 % (0.0-2.0); Eosinophils # (Auto) 0.14 K/mcL (0.00-0.70); Eosinophils % (Auto) 4.1 % (0.0-7.0); Granulocytes % (Auto) 73.3 % (38.0-78.0); Hematocrit 26.7 % (40.1-51.0); Hemoglobin 9.1 g/dL (13.7-17.5); Lymphocytes # (Auto) 0.48 K/mcL (1.50-4.80); Lymphocytes % (Auto) 14.1 % (15.5-49.0); Mean Cell Volume 91.8 fL (80.0-100.0); Mean Corpuscular HGB Conc 34.1 g/dL (31.0-36.0); Mean Platelet Volume 11.1 fL (7.4-10.4); Monocytes # (Auto) 0.27 K/mcL (0.10-0.90); Monocytes % (Auto) 7.9 % (1.0-12.0); Platelet Count 69 K/mcL (140-440); RBC 2.91 M/mcL (4.63-6.08); Red Cell Distribution Width 15.2 % (11.5-14.5); WBC 3.4 K/mcL (4.50-11.00)
--- NOTE | 2019-11-08 07:13 | Internal Med Progress Note ---
Medical - PN: Subj Patient information: Note initiated : 11/08/19 at 7:00 am Service Date, if different from initiated Date: [] Patient: Bran Canas 88 y/o M admitted on 11/07/19 for weight gain, shortness of breath, chest tightness.. Chief Complaint: [] Interval history: Mr. Canas is a 88 year old M Presents the ED referred by his primary care provider Dr. Choudhury for a month of increased swelling and weight gain 16 pounds. Swollen legs abdomen and shortness of breath. history of pleural effusions and heart failure and chronic A fibrillation. In the ED is found a large right-sided pleural effusion had thoracentesis of 1.8 L. Feels like his breathing is little improved after the thoracentesis. He is on Bumex at home and was recently started on spironolactone couple weeks ago. Started 1 week ago sildenafil for pulmonary arterial hypertension. Has chronic hyponatremia and pancytopenia. 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 Chavez Describes orthopnea. Has not been on anticoagulation for chronic atrial fibrillation because of severe bruising. 2/ Was able to get some sleep last night. Urine output 2150 since admission +1800 cc removed via thoracentesis. Denies any shortness of breath currently. Essentially on room air right now. No new complaints. Review of Systems: denies headache/fever/chills/nausea/vomiting/chest or abdominal pain/cough/dyspnea/diarrhea. Otherwise see above. - Constitutional Vitals: Vital Signs Temp Pulse Resp BP Pulse Ox 98.9 F 62 14 98/59 94 11/08/19 04:18 11/08/19 05:38 11/08/19 05:38 11/08/19 04:26 11/08/19 05:38 Period Temp Pulse Resp BP Sys/Terry Pulse Ox Last 24 Hr 96.6 F-98.9 F 26-97 11-21 92-144/45-85 87-100 Intake and Output 11/07/19 11/08/19 11/08/19 21:59 05:59 13:59 Intake Total 100 Output Total 500 1110 Balance -500 -1010 Weight 93.894 kg Intake & Output: Intake & Output 11/07/19 11/08/19 11/08/19 21:59 05:59 13:59 Intake Total 100 Output Total 500 1110 Balance -500 -1010 Weight 93.894 kg Intake: IV 100 Lasix 250 mg In Sodium Chloride 100 0.9% 225 ml @ 8 MG/HR 8 mls/hr IV Q24H RACHELLE Rx#:[id number] Output: Urine Catheter Amount 770 Void Amount 500 340 Other: Urine Appearance Clear Uretheral (Egan) Clear Urine Color Bright Yellow Pale Uretheral (Egan) Bright Yellow Exam: General: Alert, Awake, No acute Distress Eyes/N/T: EOMI, Head/Neck: neck supple, CV: irreg irreg, No murmurs, Pulm: Diminished b/l, no wheezing today, rales b/l bases Abd: soft, nontender, +BS x4 Ext: no clubbing/cyanosis, b/l LE edema 3+ Neuro: Alert, no focal deficits, moves all extremities, Skin: warm/dry Medical - PN: Obj Da - Labs CBC & Chem 7: 11/08/19 05:10 11/08/19 05:10 Labs: Abnormal Lab Results 11/07/19 11/07/19 11/07/19 17:47 12:51 12:50 WBC RBC Hgb Hct RDW Plt Count MPV Lymph % (Auto) Lymph # (Auto) PT 17.0 H INR 1.3 H Sodium Chloride BUN Creatinine Troponin T 0.09 H* 0.11 H* NT-Pro-B Natriuret Pep 11/07/19 11/07/19 12:50 12:50 WBC 3.1 L RBC 3.13 L Hgb 9.8 L Hct 29.3 L RDW 15.8 H Plt Count 68 L MPV 11.7 H Lymph % (Auto) 14.0 L Lymph # (Auto) 0.44 L PT INR Sodium 123 L Chloride 83 L BUN 36 H Creatinine 1.9 H Troponin T NT-Pro-B Natriuret Pep 42690.0 H Meds: Medications Acetaminophen (Tylenol) 650 mg PO Q6HP PRN PRN Reason: PAIN/FEVER > 101 Albuterol/Ipratropium (Duoneb) 3 ml NEB Q4HP PRN PRN Reason: Shortness Of Breath Allopurinol (Zyloprim) 100 mg PO DAILY RACHELLE Docusate Sodium (Colace) 100 mg PO BID [facility] Last Admin: 11/07/19 23:10 Dose: Not Given Documented by: Doxazosin Mesylate (Cardura) 8 mg PO DAILY [facility] Finasteride (Proscar) 5 mg PO QDAY [facility] Gabapentin (Neurontin) 300 mg PO TID [facility] Last Admin: 11/07/19 23:08 Dose: 300 mg Documented by: Heparin Sodium (Porcine) (Heparin) 5,000 unit SQ Q12 [facility] Last Admin: 11/07/19 22:00 Dose: 5,000 unit Documented by: Potassium Chloride 40 meq/ (Dextrose) 520 mls @ 130 mls/hr IV UD PRN PRN Reason: Potassium < 3 Magnesium Sulfate (Magnesium Sulfate) 2 gm in 50 mls @ 50 mls/hr IV UD PRN PRN Reason: Magnesium </= 1.6 Furosemide 250 mg/ Sodium (Chloride) 250 mls @ 8 mls/hr IV Q24H [facility]; Protocol Last Titration: 11/08/19 04:28 Dose: 40 mg/hr, 40 mls/hr Documented by: Levothyroxine Sodium (Synthroid) 88 mcg PO QAMAC [facility] Melatonin (Melatonin 3mg Tablet) 3 mg PO HS [facility] Metoprolol Succinate (Toprol Xl) 12.5 mg PO DAILY [facility] Metoprolol Tartrate (Lopressor) 5 mg IV Q2HP PRN PRN Reason: Tachyarrhythmias HR>110 Omeprazole (Prilosec) 40 mg PO QAMAC [facility] Ondansetron HCl (Zofran) 4 mg IV Q4HP PRN PRN Reason: Nausea And Vomiting [Flovent Inh 1 dose INH QDAY [facility] Sildenafil Citrate [ (Revatio] 20 Mg) 1 dose PO TID [facility] Last Admin: 11/07/19 23:09 Dose: Not Given Documented by: Polyethylene Glycol (Miralax) 17 gm PO DAILYP PRN PRN Reason: Constipation Potassium Chloride (Kdur) 40 meq PO UD PRN PRN Reason: Potssium is 3-3.5 Potassium Chloride (Kdur) 40 meq PO UD PRN PRN Reason: Potassium < 3 Senna (Senokot) 2 tab PO DAILYP PRN PRN Reason: Constipation Simvastatin (Zocor) 10 mg PO DAILY [facility] Sodium Chloride (Saline Flush) 10 ml IV Q8 [facility] Last Admin: 02/05/20 05:40 Dose: Not Given Documented by: Spironolactone (Aldactone) 25 mg PO QDAY [facility]HELLE Medical - PN: A/P - Time Spent With Patient Total time spent is greater than 50% in coordination of care (as documented) at patient's floor/unit and/or counseling patient: - Narrative A/P Narrative: A: *Acute on chronic right heart failure (Cor Pulmonale) and Left heart failure systolic/diastolic w/Anasarca: -long-term prognosis guarded -October echo does not report reduced RV systolic but April 2019 reports moderately reduced RV systolic fxn *Pleural effusion on Right: -thora (11/07) of 1.8L of transudative appearing fluid noted in report, no fluid sent for analysis *Pulmonary arterial hypertension: -started on sildenafil 1 week ago by PCP *Atrial fibrillation: Has not been on anticoagulation because of severe bruising, understands increased stroke risk. Also had gi bleed last June -rate controlled *Obesity: *chronic Pancytopenia, (leukopenia/anemia/thrombocytopenia): *Appears to have Cirrhosis: -CT with mild cirrhosis on imaging/portal HTN and perisplenic/gastric varices (possibly related to previous etoh use) *Hyponatremia, felt to be SIADH in past: Has been on salt tablets in the past. *CKD IIIb: follows with dr chavez *Anemia, chronic: *COPD (no home O2) *Hypothyroidism: *Neuropathy: *GERD: *BPH: *h/o GI bleed from [place] lesion @ [facility] 06/2019 s/p clipping: P: -lasix gtt, aldactone held for now -monitor I's/O's, weights, UOP -monitor sodium and other electrolytes -compression wraps, elevate legs -pt started on sildenafil 1week ago for PAH, will continue. Did discuss case with Dr. Quintanilla as well, who recommended nocturnal pulse oximetry test. -cont BB - -pt/ot -f/u with pulmonology and cardiology outpt and GI for cirrhosis -f/u with PCP/Cardio regarding anticoagulation for Afib -ppx: heparin (hold if PLT<50k)/home ppi No CPR, Intubation ok Medical - PN: Qual - VTE Deep Vein Thrombosis/Pulmonary Embolism Present on Admission: No
[2019-11-08 07:21] LABS: ALT/SGPT 8 U/l (0-40); AST/SGOT 22 U/l (0-37); Albumin 3.4 gm/dL (3.2-5.2); Albumin/Globulin Ratio 1.5 (1.0-2.3); Alkaline Phosphatase 82 U/L (39-117); Bilirubin,Direct 0.4 mg/dL (0.0-0.3); Bilirubin,Total 0.9 mg/dL (0.0-1.0); Blood Urea Nitrogen 39 mg/dl (8-23); Carbon Dioxide 29 mmol/L (22-30); Chloride 84 mmol/L (96-108); Globulin 2.3 gm/dL (2.2-3.7); Glomerular Filtration Rate 33; Glucose 91 mg/dL (70-105); Lactate Dehydrogenase 195 U/L (94-250); Phosphorous 3.6 mg/dL (2.7-4.5); Triglycerides 40 mg/dl (<150); Uric Acid 9.1 mg/dL (2.5-8.0)
[2019-11-08 07:41] LABS: Hepatitis B Surface Antigen NEGATIVE (NEGATIVE); Hepatitis C Virus Antibody NON REACTIVE (NEGATIVE)
[2019-11-08] MEDS: LEVOTHYROXINE 88 MCG TABLET PO SCH (07:47)
[2019-11-08] MEDS: OMEPRAZOLE 20 MG CAPSULE PO SCH (07:47)
[2019-11-08] MEDS ORDERED: SPIRONOLACTONE 25 MG TABLET PO SCH (09:00)
[2019-11-08] MEDS ORDERED: FLOVENT SCH (09:00)
[2019-11-08] MEDS ORDERED: PRAVASTATIN 20 MG TABLET PO SCH (09:00)
[2019-11-08] MEDS: DOCUSATE SODIUM 100 MG CAPSULE PO SCH ×2 (09:21→21:08)
[2019-11-08] MEDS: METOPROLOL SUCCINATE 25 MG TAB.XL.24H PO SCH (09:21)
[2019-11-08] MEDS: SIMVASTATIN 10 MG TABLET PO SCH (09:21)
[2019-11-08] MEDS: ALLOPURINOL 100 MG TABLET PO SCH (09:21)
[2019-11-08] MEDS: GABAPENTIN 300 MG CAPSULE PO SCH ×3 (09:21→21:08)
[2019-11-08] MEDS: FINASTERIDE 5 MG TABLET PO SCH (09:25)
[2019-11-08] MEDS: DOXAZOSIN 4 MG TABLET PO SCH (09:25)
[2019-11-08] MEDS: HEPARIN 5,000 UNIT/ML VIAL SQ SCH ×2 (09:28→21:07)
[2019-11-08] MEDS ORDERED: METOLAZONE 2.5 MG TABLET PO ONE (09:39)
[2019-11-08] MEDS: SODIUM CHLORIDE 1 GM TABLET PO SCH ×3 (10:35→21:08)
[2019-11-08] MEDS: FUROSEMIDE 250 MG in 0.9 % SODIUM CHLORIDE 225 ML IV SCH (11:27)
[2019-11-08] MEDS: SILDENAFIL CITRATE 20 MG PO SCH ×3 (11:32→21:10)
[2019-11-08 11:37] LABS: Appearance,Urine CLEAR; Bacteria,Urine 0 /hpf (0); Bilirubin,Urine NEG (NEG); Color,Urine STRAW; Culture Indicated,Urine YES; Glucose,Urine (UA) NEGATIVE (NEG); Ketones,Urine NEG (NEG); Leukocyte Esterase,Urine 25 /uL (NEG); Mucus,Urine FEW /hpf (0); Nitrate,Urine NEG (NEG); Protein,Urine NEG (NEG); Specific Gravity,Urine 1.006 (1.000-1.035); Urine Blood 0.2 mg/dL (<0.03); Urine Hyaline Cast 2 /lpf (0-2); Urine RBC 8 /hpf (0-1); Urine Squamous Epithelial Cell 0 /hpf (0-4); Urine WBC 12 /hpf (0-4); Urobilinogen,Urine NEG (NEG)
[2019-11-08 11:40] LABS: Sodium, Urine Random 63 mmol/L
[2019-11-08 11:40] LABS: INR 1.4 (0.9-1.1); Prothrombin Time 17.8 sec (11.9-14.5)
[2019-11-08 12:01] LABS: Osmolality,Urine 241 mOsm/kg (80-1000)
[2019-11-08] MEDS: FLUTICASONE PROPIONATE SPRAY.NAS NS SCH (14:07)
[2019-11-08] MEDS ORDERED: MELATONIN 3 MG TABLET PO SCH (21:00)
[2019-11-09] MEDS: 0.9 % SODIUM CHLORIDE 10 ML SYRINGE IV SCH ×4 (00:15→20:23)
[2019-11-09] MEDS: OMEPRAZOLE 20 MG CAPSULE PO SCH (07:00)
[2019-11-09] MEDS: LEVOTHYROXINE 88 MCG TABLET PO SCH (07:01)
[2019-11-09 07:17] LABS: Basophils # (Auto) 0.03 K/mcL (0.00-0.30); Eosinophils # (Auto) 0.13 K/mcL (0.00-0.70); Eosinophils % (Auto) 4.3 % (0.0-7.0); Granulocytes % (Auto) 67.4 % (38.0-78.0); Hematocrit 26.8 % (40.1-51.0); Lymphocytes # (Auto) 0.53 K/mcL (1.50-4.80); Lymphocytes % (Auto) 17.4 % (15.5-49.0); Mean Cell Volume 93.4 fL (80.0-100.0); Mean Corpuscular HGB Conc 33.6 g/dL (31.0-36.0); Monocytes % (Auto) 9.9 % (1.0-12.0); Platelet Count 64 K/mcL (140-440); RBC 2.87 M/mcL (4.63-6.08); Red Cell Distribution Width 15.2 % (11.5-14.5)
--- NOTE | 2019-11-09 07:36 | Internal Med Progress Note ---
Medical - PN: Subj Patient information: Note initiated : 11/09/19 at 7:29 am Service Date, if different from initiated Date: [] Patient: Bran Canas 88 y/o M admitted on 11/07/19 for weight gain, shortness of breath, chest tightness.. Chief Complaint: [] Interval history: Mr. Canas is a 88 year old M Presents the ED referred by his primary care provider Dr. Choudhury for a month of increased swelling and weight gain 16 pounds. Swollen legs abdomen and shortness of breath. history of pleural effusions and heart failure and chronic A fibrillation. In the ED is found a large right-sided pleural effusion had thoracentesis of 1.8 L. Feels like his breathing is little improved after the thoracentesis. He is on Bumex at home and was recently started on spironolactone couple weeks ago. Started 1 week ago sildenafil for pulmonary arterial hypertension. Has chronic hyponatremia and pancytopenia. 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 Chavez Describes orthopnea. Has not been on anticoagulation for chronic atrial fibrillation because of severe bruising. 11/08 Was able to get some sleep last night. Urine output 2150 since admission +1800 cc removed via thoracentesis. Denies any shortness of breath currently. Essentially on room air right now. No new complaints. 11/09 Has put out a significant amount of urine. Weight substantially down. Patient feeling better this morning appears to have more energy. Legs less swollen. Sodium improved. No complaints. Desatted on the nocturnal pulse oximetry test last night. Review of Systems: denies headache/fever/chills/nausea/vomiting/chest or abdominal pain/co ugh/dyspnea/diarrhea. Otherwise see above. - Constitutional Vitals: Vital Signs Temp Pulse Resp BP Pulse Ox 98.4 F 67 15 112/64 89 L 11/09/19 04:00 11/09/19 04:23 11/09/19 04:23 11/09/19 04:06 11/09/19 04:23 Period Temp Pulse Resp BP Sys/Terry Pulse Ox Last 24 Hr 97.8 F-98.9 F 58-85 12-27 82-126/46-70 69-97 Intake and Output 11/08/19 11/09/19 11/09/19 21:59 05:59 13:59 Intake Total 580 452 Output Total 1250 920 240 Balance -670 -468 -240 Weight 86.5 kg Intake & Output: Intake & Output 11/08/19 11/09/19 11/09/19 21:59 05:59 13:59 Intake Total 580 452 Output Total 1250 920 240 Balance -670 -468 -240 Weight 86.5 kg Intake: IV 152 Lasix 250 mg In Sodium Chloride 152 0.9% 225 ml @ 8 MG/HR 8 mls/hr IV Q24H [facility] Rx#:[id number] Oral 580 300 Output: Urine Catheter Amount 1120 740 240 Void Amount 130 180 Other: Meal Dinner Percent of Meal Consumed 100% Feeding Ability Independent Urine Appearance Clear Uretheral (Egan) Clear Urine Color Bright Yellow Uretheral (Egan) Bright Yellow Exam: General: Alert, Awake, No acute Distress Eyes/N/T: EOMI, Head/Neck: neck supple, JVD CV: irreg irreg, No murmurs, Pulm: Diminished left base, rales right base, no wheezing today Abd: soft, nontender, +BS x4 Ext: no clubbing/cyanosis, b/l LE edema 3+ Neuro: Alert, no focal deficits, moves all extremities, Skin: warm/dry Medical - PN: Obj Da - Labs CBC & Chem 7: 11/09/19 05:15 11/09/19 05:15 Labs: Abnormal Lab Results 11/09/19 11/08/19 11/08/19 05:15 16:37 10:25 WBC 3.0 L RBC 2.87 L Hgb 9.0 L Hct 26.8 L RDW 15.2 H Plt Count 64 L MPV 12.0 H Lymph % (Auto) Lymph # (Auto) 0.53 L PT INR Sodium 126 L Chloride BUN Creatinine Uric Acid Direct Bilirubin Troponin T NT-Pro-B Natriuret Pep Total Protein Urine Occult Blood 0.2 A Ur Leukocyte Esterase 25 A Urine RBC 8 H Urine WBC 12 H 11/08/19 11/08/19 11/08/19 05:10 05:10 05:10 WBC 3.4 L RBC 2.91 L Hgb 9.1 L Hct 26.7 L RDW 15.2 H Plt Count 69 L MPV 11.1 H Lymph % (Auto) 14.1 L Lymph # (Auto) 0.48 L PT 17.8 H INR 1.4 H Sodium 122 L Chloride 84 L BUN 39 H Creatinine 1.8 H Uric Acid 9.1 H Direct Bilirubin 0.4 H Troponin T NT-Pro-B Natriuret Pep Total Protein 5.7 L Urine Occult Blood Ur Leukocyte Esterase Urine RBC Urine WBC 11/07/19 11/07/19 11/07/19 17:47 12:51 12:50 WBC RBC Hgb Hct RDW Plt Count MPV Lymph % (Auto) Lymph # (Auto) PT 17.0 H INR 1.3 H Sodium Chloride BUN Creatinine Uric Acid Direct Bilirubin Troponin T 0.09 H* 0.11 H* NT-Pro-B Natriuret Pep Total Protein Urine Occult Blood Ur Leukocyte Esterase Urine RBC Urine WBC 11/07/19 11/07/19 12:50 12:50 WBC 3.1 L RBC 3.13 L Hgb 9.8 L Hct 29.3 L RDW 15.8 H Plt Count 68 L MPV 11.7 H Lymph % (Auto) 14.0 L Lymph # (Auto) 0.44 L PT INR Sodium 123 L Chloride 83 L BUN 36 H Creatinine 1.9 H Uric Acid Direct Bilirubin Troponin T NT-Pro-B Natriuret Pep 95266.0 H Total Protein Urine Occult Blood Ur Leukocyte Esterase Urine RBC Urine WBC Meds: Medications Acetaminophen (Tylenol) 650 mg PO Q6HP PRN PRN Reason: PAIN/FEVER > 101 Albuterol/Ipratropium (Duoneb) 3 ml NEB Q4HP PRN PRN Reason: Shortness Of Breath Allopurinol (Zyloprim) 100 mg PO DAILY [facility] Last Admin: 11/08/19 09:21 Dose: 100 mg Documented by: Docusate Sodium (Colace) 100 mg PO BID [facility] Last Admin: 11/08/19 21:08 Dose: 100 mg Documented by: Doxazosin Mesylate (Cardura) 8 mg PO DAILY [facility] Last Admin: 11/08/19 09:25 Dose: 8 mg Documented by: Finasteride (Proscar) 5 mg PO QDAY [facility] Last Admin: 11/08/19 09:25 Dose: 5 mg Documented by: Fluticasone Propionate (Flonase) 1 spray NS DAILY [facility] Last Admin: 11/08/19 14:07 Dose: 1 spray Documented by: Gabapentin (Neurontin) 300 mg PO TID [facility] Last Admin: 11/08/19 21:08 Dose: 300 mg Documented by: Heparin Sodium (Porcine) (Heparin) 5,000 unit SQ Q12 [facility] Last Admin: 11/08/19 21:07 Dose: 5,000 unit Documented by: Potassium Chloride 40 meq/ (Dextrose) 520 mls @ 130 mls/hr IV UD PRN PRN Reason: Potassium < 3 Magnesium Sulfate (Magnesium Sulfate) 2 gm in 50 mls @ 50 mls/hr IV UD PRN PRN Reason: Magnesium </= 1.6 Furosemide 250 mg/ Sodium (Chloride) 250 mls @ 8 mls/hr IV Q24H [facility]; Protocol Last Titration: 11/09/19 05:08 Dose: 8 mg/hr, 8 mls/hr Documented by: Levothyroxine [facility] ([facility]throid) [facility] Last Admin: 11/09/19 07:01 Dose: 88 mcg Documented by: Melatonin (Melatonin 3mg Tablet) 3 mg PO HS [facility] Last Admin: 11/08/19 21:08 Dose: 3 mg Documented by: Metoprolol Succinate (Toprol Xl) 12.5 mg PO DAILY [facility] Last Admin: 11/08/19 09:21 Dose: 12.5 mg Documented by: Metoprolol Tartrate (Lopressor) 5 mg IV Q2HP PRN PRN Reason: Tachyarrhythmias HR>110 Omeprazole [facility]ilosec) [facility] Last Admin: 11/09/19 07:00 Dose: 40 mg Documented by: Ondansetron HCl (Zofran) 4 mg IV Q4HP PRN PRN Reason: Nausea And Vomiting Last Admin: 11/08/19 11:00 Dose: 4 mg Documented by: Sildenafil Citrate [ (Revatio] 20 Mg) 1 dose PO TID [facility] Last Admin: 11/08/19 21:10 Dose: 1 dose Documented by: Polyethylene Glycol (Miralax) 17 gm PO DAILYP PRN PRN Reason: Constipation Potassium Chloride (Kdur) 40 meq PO UD PRN PRN Reason: Potssium is 3-3.5 Potassium Chloride (Kdur) 40 meq PO UD PRN PRN Reason: Potassium < 3 Senna (Senokot) 2 tab PO DAILYP PRN PRN Reason: Constipation Simvastatin (Zocor) 10 mg PO DAILY [facility] Last Admin: 11/08/19 09:21 Dose: 10 mg Documented by: Sodium Chloride (Saline Flush) 10 ml IV Q8 [facility] Last Admin: 11/09/19 05:09 Dose: Not Given Documented by: Sodium Chloride (Sodium Chloride) 1 gm PO TID [facility] Last Admin: 11/08/19 21:08 Dose: 1 gm Documented by: Medical - PN: A/P - Time Spent With Patient Total time spent is greater than 50% in coordination of care (as documented) at patient's floor/unit and/or counseling patient: - Narrative A/P Narrative: A: *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 but also hypervolemic hyponatremia *CKD IIIb: follows with dr chavez *Anemia, chronic: *COPD (no home O2) *Hypothyroidism: *Neuropathy: *GERD: *BPH: *h/o GI bleed from [place] lesion @ [facility] 06/2019 s/p clipping: P: -lasix gtt continue through today, aldactone held for now -monitor I's/O's, weights, UOP -monitor sodium and other electrolytes -compression wraps, elevate legs -pt started on sildenafil 1week ago for PAH, will continue. Did discuss case with Dr. Quintanilla as well, who recommended nocturnal pulse oximetry test. -will need nighttime O2, f/u with Pulmonology for PAH and sleep study -cont BB -pt/ot -f/u cardiology outpt and GI for cirrhosis -f/u with PCP/Cardio regarding anticoagulation for Afib -ppx: heparin (hold if PLT<50k)/home ppi No CPR, Intubation ok Medical - PN: Qual - VTE Deep Vein Thrombosis/Pulmonary Embolism Present on Admission: No
[2019-11-09 08:11] LABS: ALT/SGPT 7 U/l (0-40); AST/SGOT 21 U/l (0-37); Albumin 3.5 gm/dL (3.2-5.2); Albumin/Globulin Ratio 1.5 (1.0-2.3); Alkaline Phosphatase 78 U/L (39-117); Bilirubin,Direct 0.4 mg/dL (0.0-0.3); Bilirubin,Total 0.9 mg/dL (0.0-1.0); Blood Urea Nitrogen 40 mg/dl (8-23); Calcium 8.9 mg/dl (8.6-10.4); Carbon Dioxide 30 mmol/L (22-30); Globulin 2.4 gm/dL (2.2-3.7); Glomerular Filtration Rate 33; Glucose 93 mg/dL (70-105); Lactate Dehydrogenase 183 U/L (94-250); Phosphorous 3.6 mg/dL (2.7-4.5); Triglycerides 38 mg/dl (<150); Uric Acid 9.1 mg/dL (2.5-8.0)
[2019-11-09 08:12] LABS: Chloride 88 mmol/L (96-108)
[2019-11-09] MEDS: SILDENAFIL CITRATE 20 MG PO SCH ×3 (09:00→20:20)
--- NOTE | 2019-11-09 11:03 | Discharge Summary ---
Medical - DS: Prov Patient information: Note initiated : 11/09/19 at 11:00 am Service Date, if different from initiated Date: [] Patient: Bran Canas 88 y/o M admitted on 11/07/19 for weight gain, shortness of breath, chest tightness.. Chief Complaint: [] Date of admission: 11/07/19 20:42 Discharge date: 11/10/19 Primary care physician: Kali Choudhury Consults: 11/07/19 Consult to Physician [CONS] Stat Comment: Consulting Provider: Ryan Gallagher Reason For Exam: Physician to Consult Medical - DS: Meds - Discharge Medications Prescriptions: Spironolactone 50 mg PO QDAY #30 tab Active and Home Medications: Home Medications Allopurinol [Zyloprim] 100 mg PO DAILY 10/25/15 [History Confirmed 11/07/19 Last Taken 04/14/19 08:00] multivitamin,uy-lbbj-osbidogk 1 tab PO QDAY 11/21/15 [History Confirmed 11/07/19 Last Taken 04/14/19 08:00] levothyroxine 88 mcg tablet 88 mcg PO QAM tab 12/14/17 [History Confirmed 11/07/19 Last Taken 04/14/19 04:00] ipratropium 0.5 mg-albuterol 3 mg (2.5 mg base)/3 mL nebulization soln 3 ml INHALATION QID #180 ml 12/15/17 [Rx Confirmed 11/07/19 Last Taken 04/13/19 21:30] omeprazole 20 mg capsule,delayed release 40 mg PO QAM cap 12/15/17 [History Confirmed 11/07/19 Last Taken 04/14/19 08:00] ascorbic acid (vitamin C) 1,000 mg tablet 1 g PO QDAY tab 06/20/18 [History Confirmed 11/07/19 Last Taken 04/14/19 08:00] magnesium oxide 400 mg PO BID #360 cap 06/24/18 [Rx Confirmed 11/07/19 Last Taken 04/14/19 08:00] doxazosin 4 mg tablet 8 mg PO DAILY #90 tab 09/22/18 [Rx Confirmed 11/07/19 Last Taken 04/13/19 21:30] finasteride 5 mg tablet 5 mg PO QDAY #90 tab 09/22/18 [Rx Confirmed 11/07/19 Last Taken 04/13/19 21:30] cranberry 500 mg capsule 500 mg PO QDAY cap 11/29/18 [History Confirmed 11/07/19 Last Taken 04/14/19 08:00] calcium carbonate-vitamin D3 600 mg (1,500 mg)-400 unit capsule 1 cap PO .QD cap 01/17/19 [History Confirmed 11/07/19 Last Taken 04/14/19 08:00] ferrous sulfate 325 mg (65 mg iron) tablet 325 mg PO QDAY tab 02/08/19 [History Confirmed 11/07/19 Last Taken Unknown] Metoprolol Succinate [Toprol Xl] 12.5 mg PO DAILY #30 tab.xl.24h 04/17/19 [Rx Confirmed 11/07/19 Last Taken Unknown] acetaminophen 500 mg capsule 500 mg PO Q6H PRN 05/29/19 [History Confirmed 11/07/19 Last Taken Unknown] loratadine 10 mg tablet 10 mg PO QDAY 05/29/19 [History Confirmed 11/07/19 Last Taken Unknown] melatonin 1 mg tablet 5 mg PO HS tab 05/29/19 [History Confirmed 11/07/19 Last Taken Unknown] pravastatin 20 mg tablet 40 mg PO QDAY tab 05/29/19 [History Confirmed 11/07/19 Last Taken Unknown] bumetanide 2 mg tablet 2 mg PO TID tab 10/12/19 [History Confirmed 11/07/19 Last Taken Unknown] gabapentin 300 mg capsule 300 mg PO TID cap 10/26/19 [History Confirmed Last Taken Unknown] spironolactone 25 mg tablet 25 mg PO QDAY #90 tab 10/26/19 [Rx Confirmed 11/07/19 Last Taken Unknown] Sildenafil Citrate [Revatio] 20 mg PO TID 11/07/19 [History Confirmed 11/07/19 Last Taken Unknown] Fluticasone Propionate [Flonase] 1 spray NS DAILY 11/08/19 [History Confirmed 11/08/19 Last Taken 11/07/19 08:00] Home Medications Allopurinol [Zyloprim] 100 mg PO DAILY 10/25/15 [History Confirmed 11/07/19 Last Taken 04/14/19 08:00] multivitamin,ve-guvy-uvohwjfr 1 tab PO QDAY 11/21/15 [History Confirmed 11/07/19 Last Taken 04/14/19 08:00] levothyroxine 88 mcg tablet 88 mcg PO QAM tab 12/14/17 [History Confirmed 11/07/19 Last Taken 04/14/19 04:00] ipratropium 0.5 mg-albuterol 3 mg (2.5 mg base)/3 mL nebulization soln 3 ml INHALATION QID #180 ml 12/15/17 [Rx Confirmed 11/07/19 Last Taken 04/13/19 21:30] omeprazole 20 mg capsule,delayed release 40 mg PO QAM cap 12/15/17 [History Confirmed 11/07/19 Last Taken 04/14/19 08:00] ascorbic acid (vitamin C) 1,000 mg tablet 1 g PO QDAY tab 06/20/18 [History Confirmed 11/07/19 Last Taken 04/14/19 08:00] magnesium oxide 400 mg PO BID #360 cap 06/24/18 [Rx Confirmed 11/07/19 Last Taken 04/14/19 08:00] doxazosin 4 mg tablet 8 mg PO DAILY #90 tab 09/22/18 [Rx Confirmed 11/07/19 Last Taken 04/13/19 21:30] finasteride 5 mg tablet 5 mg PO QDAY #90 tab 09/22/18 [Rx Confirmed 11/07/19 Last Taken 04/13/19 21:30] cranberry 500 mg capsule 500 mg PO QDAY cap 11/29/18 [History Confirmed 11/07/19 Last Taken 04/14/19 08:00] calcium carbonate-vitamin D3 600 mg (1,500 mg)-400 unit capsule 1 cap PO .QD cap 01/17/19 [History Confirmed 11/07/19 Last Taken 04/14/19 08:00] ferrous sulfate 325 mg (65 mg iron) tablet 325 mg PO QDAY tab 02/08/19 [History Confirmed 11/07/19 Last Taken Unknown] Metoprolol Succinate [Toprol Xl] 12.5 mg PO DAILY #30 tab.xl.24h 04/17/19 [Rx Confirmed 11/07/19 Last Taken Unknown] acetaminophen 500 mg capsule 500 mg PO Q6H PRN 05/29/19 [History Confirmed 11/07/19 Last Taken Unknown] loratadine 10 mg tablet 10 mg PO QDAY 08/26/19 [History Confirmed 11/07/19 Last Taken Unknown] melatonin 1 mg tablet 5 mg PO HS tab 05/29/19 [History Confirmed 11/07/19 Last Taken Unknown] pravastatin 20 mg tablet 40 mg PO QDAY tab 05/29/19 [History Confirmed 11/07/19 Last Taken Unknown] bumetanide 2 mg tablet 2 mg PO TID tab 10/12/19 [History Confirmed 11/07/19 Last Taken Unknown] gabapentin 300 mg capsule 300 mg PO TID cap 10/26/19 [History Confirmed 11/07/19 Last Taken Unknown] Sildenafil Citrate [Revatio] 20 mg PO TID 11/07/19 [History Confirmed 11/07/19 Last Taken Unknown] Fluticasone Propionate [Flonase] 1 spray NS DAILY 11/08/19 [History Confirmed 11/08/19 Last Taken 11/07/19 08:00] Spironolactone 50 mg PO QDAY #30 tab 11/09/19 [Rx Last Taken Unknown] Medical - DS: Hosp Hospital Course: Mr. Cansa is a 88 year old M Presents the ED referred by his primary care provider Dr. Choudhury for a month of increased swelling and weight gain 16 pounds. Swollen legs abdomen and shortness of breath. history of pleural effusions and heart failure and chronic A fibrillation. In the ED is found a large right-sided pleural effusion had thoracentesis of 1.8 L. Feels like his breathing is little improved after the thoracentesis. He is on Bumex at home and was recently started on spironolactone couple weeks ago. Started 1 week ago sildenafil for pulmonary arterial hypertension. Has chronic hyponatremia and pancytopenia. 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 Urbina Describes orthopnea. Has not been on anticoagulation for chronic atrial fibrillation because of severe bruising. 2 Was able to get some sleep last night. Urine output 2150 since admission +1800 cc removed via thoracentesis. Denies any shortness of breath currently. Essentially on room air right now. No new complaints. 2 Has put out a significant amount of urine. Weight substantially down. Patient feeling better this morning appears to have more energy. Legs less swollen. Sodium improved. No complaints. Desatted on the nocturnal pulse oximetry test last night. 11/10 Good urine output. Weight significantly down. Sodium improved. Patient doing well feeling better. Denies shortness of breath. Given age and significant comorbidities, patient is a high risk for readmission and poor long-term prognosis. Discharge diagnosis: Left and right heart failure pleural effusion pulmonary artery hypertension Secondary discharge diagnosis: Nocturnal hypoxia atrial fibrillation appears to have cirrhosis hyponatremia chronic kidney disease anemia COPD hypothyroidism neuropathy GERD BPH - Time Spent with Patient Total time spent providing and/or coordinating discharge services: Greater than 30 minutes Medical - DS: Exam - Constitutional Vitals: Vital Signs Temp Pulse Resp BP Pulse Ox 11/09/19 07:38 98.3 F 55 L 16 108/63 98 11/09/19 04:23 67 15 89 L 11/09/19 04:06 70 16 112/64 97 11/09/19 04:01 67 12 82/46 93 11/09/19 04:00 98.4 F 11/09/19 03:30 69 L 11/09/19 00:23 91 11/09/19 00:21 80 16 86 L 11/09/19 00:01 98.9 F 75 27 H 99/66 90 11/08/19 23:12 71 15 77 L 11/08/19 23:09 70 16 75 L 11/08/19 23:07 63 16 87 L 11/08/19 22:37 95 11/08/19 22:36 96 11/08/19 22:35 89 L 11/08/19 22:33 82 L 11/08/19 22:30 78 L 11/08/19 22:25 85 L 11/08/19 22:21 85 15 86 L 11/08/19 22:10 89 L 11/08/19 22:00 84 L 11/08/19 20:04 72 113/48 93 11/08/19 16:05 97.8 F 62 16 126/70 94 11/08/19 14:00 91 11/08/19 12:01 98 F 58 L 22 110/67 97 Intake and Output 11/08/19 11/09/19 11/09/19 21:59 05:59 13:59 Intake Total 580 452 240 Output Total 1250 920 380 Balance -163 -901 -140 Intake: IV 152 Lasix 250 mg In Sodium Chloride 152 0.9% 225 ml @ 8 MG/HR 8 mls/hr IV Q24H [facility] Rx#:[id number] Oral 580 300 240 Output: Urine Catheter Amount 1120 740 380 Void Amount 130 180 Other: Meal Dinner Breakfast Percent of Meal Consumed 100% 100% Feeding Ability Independent Urine Appearance Clear Uretheral (Egan) Clear Clear Urine Color Bright Yellow Uretheral (Egan) Bright Yellow Bright Yellow Weight 86.5 kg Medical - DS: Data Labs on day of discharge: Labs from last 24 hours 11/09/19 11/09/19 11/08/19 05:15 05:15 16:37 WBC 3.0 L RBC 2.87 L Hgb 9.0 L Hct 26.8 L MCV 93.4 MCH 31.4 MCHC 33.6 RDW 15.2 H Plt Count 64 L MPV 12.0 H Gran % 67.4 Lymph % (Auto) 17.4 [place] % (Auto) 9.9 Eos % (Auto) 4.3 Baso % (Auto) 1.0 Gran # 2.05 Lymph # (Auto) 0.53 L [place] # (Auto) 0.30 Eos # (Auto) 0.13 Baso # (Auto) 0.03 PT INR Sodium 130 L Potassium 4.5 4.6 Chloride 88 L Carbon Dioxide 30 Anion Gap 12.0 BUN 40 H Creatinine 1.8 H GFR Calculation 33 Glucose 93 Osmolality Uric Acid 9.1 H Calcium 8.9 Phosphorus 3.6 Magnesium 1.7 1.8 Total Bilirubin 0.9 Direct Bilirubin 0.4 H GGT 48 AST 21 ALT 7 Alkaline Phosphatase 78 Lactate Dehydrogenase 183 Total Protein 5.9 Albumin 3.5 Globulin 2.4 Albumin/Globulin Ratio 1.5 Triglycerides 38 Urine Color Urine Appearance Urine pH Ur Specific [place] Urine Protein Urine Glucose (UA) Urine Ketones Urine Occult Blood Urine Nitrate Urine Bilirubin Urine Urobilinogen Ur Leukocyte Esterase Urine RBC Urine WBC Ur Squamous Epith Cells Urine Bacteria Hyaline Casts Urine Mucus Ur Culture Indicated? Urine Osmolality Ur Random Sodium HCV RNA Quant (PCR) HCV RNA PCR log IUs/ml 11/08/19 11/08/19 11/08/19 16:37 10:36 10:36 WBC RBC Hgb Hct MCV MCH MCHC RDW Plt Count MPV Gran % Lymph % (Auto) [place] % (Auto) Eos % (Auto) Baso % (Auto) Gran # Lymph # (Auto) [place] # (Auto) Eos # (Auto) Baso # (Auto) PT INR Sodium 126 L Potassium Chloride Carbon Dioxide Anion Gap BUN Creatinine GFR Calculation Glucose Osmolality 283 Uric Acid Calcium Phosphorus Magnesium Total Bilirubin Direct Bilirubin GGT AST ALT Alkaline Phosphatase Lactate Dehydrogenase Total Protein Albumin Globulin Albumin/Globulin Ratio Triglycerides Urine Color Urine Appearance Urine pH Ur Specific [place] Urine Protein Urine Glucose (UA) Urine Ketones Urine Occult Blood Urine Nitrate Urine Bilirubin Urine Urobilinogen Ur Leukocyte Esterase Urine RBC Urine WBC Ur Squamous Epith Cells Urine Bacteria Hyaline Casts Urine Mucus Ur Culture Indicated? Urine Osmolality TNP Ur Random Sodium TNP HCV RNA Quant (PCR) HCV RNA PCR log IUs/ml 11/08/19 11/08/19 11/08/19 10:25 05:10 05:10 WBC RBC Hgb Hct MCV MCH MCHC RDW Plt Count MPV Gran % Lymph % (Auto) [place] % (Auto) Eos % (Auto) Baso % (Auto) Gran # Lymph # (Auto) [place] # (Auto) Eos # (Auto) Baso # (Auto) PT 17.8 H INR 1.4 H Sodium Potassium Chloride Carbon Dioxide Anion Gap BUN Creatinine GFR Calculation Glucose Osmolality Uric Acid Calcium Phosphorus Magnesium Total Bilirubin Direct Bilirubin GGT AST ALT Alkaline Phosphatase Lactate Dehydrogenase Total Protein Albumin Globulin Albumin/Globulin Ratio Triglycerides Urine Color Straw Urine Appearance Clear Urine pH 7.0 Ur Specific [place] 1.006 Urine Protein Neg Urine Glucose (UA) Negative Urine Ketones Neg Urine Occult Blood 0.2 A Urine Nitrate Neg Urine Bilirubin Neg Urine Urobilinogen Neg Ur Leukocyte Esterase 25 A Urine RBC 8 H Urine WBC 12 H Ur Squamous Epith Cells 0 Urine Bacteria 0 Hyaline Casts 2 Urine Mucus Few Ur Culture Indicated? Yes Urine Osmolality 241 Ur Random Sodium 63 HCV RNA Quant (PCR) TNP HCV RNA PCR log IUs/ml TNP Medical - DS: A/P - Patient/Caregiver Discharge Instructions Activity: as per physical therapy Diet: Cardiac Additional Instructions: Follow-up with pulmonology and 5 to 14 days for pulmonary artery hypertension and sleep study for nocturnal hypoxia. Follow-up with cardiology in 5 to 14 days for heart failure and atrial fibrillation. Prescriptions: Spironolactone 50 mg PO QDAY #30 tab - Follow up Plan Follow up with: Kali Choudhury MD [Primary Care Provider] - Yoon Urbina MD [Physician] - (assist with fluid management) Disposition: Xfer SNF Prognosis: Undetermined Rehab Potential: Fair I certify that the patient requires SNF services: Yes Overall status at discharge: patient is progressing back to baseline Medical - DS: Qual - VTE Deep Vein Thrombosis/Pulmonary Embolism Present on Admission: No
[2019-11-09] MEDS: HEPARIN 5,000 UNIT/ML VIAL SQ SCH ×2 (12:30→20:19)
[2019-11-09] MEDS: FLUTICASONE PROPIONATE SPRAY.NAS NS SCH (12:31)
[2019-11-09] MEDS: DOCUSATE SODIUM 100 MG CAPSULE PO SCH ×2 (12:31→20:19)
[2019-11-09] MEDS: METOPROLOL SUCCINATE 25 MG TAB.XL.24H PO SCH (12:31)
[2019-11-09] MEDS: ALLOPURINOL 100 MG TABLET PO SCH (12:32)
[2019-11-09] MEDS: SIMVASTATIN 10 MG TABLET PO SCH (12:32)
[2019-11-09] MEDS: GABAPENTIN 300 MG CAPSULE PO SCH ×3 (12:32→20:19)
[2019-11-09] MEDS: DOXAZOSIN 4 MG TABLET PO SCH (12:50)
[2019-11-09] MEDS: SODIUM CHLORIDE 1 GM TABLET PO SCH ×3 (12:51→20:19)
[2019-11-09] MEDS: FINASTERIDE 5 MG TABLET PO SCH (12:51)
[2019-11-09] MEDS ORDERED: POLYETHYLENE GLYCOL 3350 17 GM PACKET PO PRN (12:55)
[2019-11-09] MEDS ORDERED: IPRATROPIUM/ALBUTEROL 3 ML AMPUL.NEB NEB PRN (12:55)
[2019-11-09] MEDS ORDERED: METOPROLOL TARTRATE 5 MG/5 ML VIAL IV PRN (12:55)
[2019-11-09] MEDS ORDERED: POTASSIUM CHLORIDE 40 MEQ in DEXTROSE 5% IN WATER 500 ML IV PRN (12:55)
[2019-11-09] MEDS ORDERED: ONDANSETRON 4 MG/2 ML VIAL IV PRN (12:55)
[2019-11-09] MEDS ORDERED: SENNOSIDES 1 TABLET PO PRN (12:55)
[2019-11-09] MEDS ORDERED: MAGNESIUM SULFATE 2 GM/50 ML BAG IV PRN (12:55)
[2019-11-09] MEDS ORDERED: POTASSIUM CHLORIDE 20 MEQ TABLET PO PRN ×2 (12:55)
[2019-11-09 17:09] LABS: Carbon Dioxide 31 mmol/L (22-30)
[2019-11-09] MEDS: FUROSEMIDE 250 MG in 0.9 % SODIUM CHLORIDE 225 ML IV SCH (17:09)
[2019-11-09 17:11] LABS: Chloride 84 mmol/L (96-108)
[2019-11-09] MEDS ORDERED: MELATONIN 3 MG TABLET PO SCH (21:00)
[2019-11-09] MEDS ORDERED: FUROSEMIDE 20 MG/2 ML VIAL IV ONE (21:22)
[2019-11-09] MEDS ORDERED: ALBUMIN HUMAN 12.5 GM/50 ML BAG IV ONE (21:22)
[2019-11-09] MEDS: ACETAMINOPHEN 325 MG TABLET PO PRN (22:01)
[2019-11-10] MEDS: ACETAMINOPHEN 325 MG TABLET PO PRN (05:08)
[2019-11-10] MEDS: 0.9 % SODIUM CHLORIDE 10 ML SYRINGE IV SCH (05:08)
[2019-11-10 06:58] LABS: ALT/SGPT 8 U/l (0-40); AST/SGOT 19 U/l (0-37); Albumin 3.5 gm/dL (3.2-5.2); Albumin/Globulin Ratio 1.6 (1.0-2.3); Alkaline Phosphatase 80 U/L (39-117); Bilirubin,Direct 0.4 mg/dL (0.0-0.3); Bilirubin,Total 0.9 mg/dL (0.0-1.0); Blood Urea Nitrogen 46 mg/dl (8-23); Carbon Dioxide 31 mmol/L (22-30); Globulin 2.2 gm/dL (2.2-3.7); Glomerular Filtration Rate 29; Glucose 103 mg/dL (70-105); Lactate Dehydrogenase 176 U/L (94-250); Triglycerides 47 mg/dl (<150); Uric Acid 9.2 mg/dL (2.5-8.0)
[2019-11-10 07:10] LABS: Chloride 87 mmol/L (96-108); Phosphorous 4.8 mg/dL (2.7-4.5)
[2019-11-10 07:14] LABS: Basophils # (Auto) 0.02 K/mcL (0.00-0.30); Basophils % (Auto) 0.5 % (0.0-2.0); Eosinophils # (Auto) 0.15 K/mcL (0.00-0.70); Granulocytes % (Auto) 74.3 % (38.0-78.0); Hematocrit 27.7 % (40.1-51.0); Hemoglobin 9.1 g/dL (13.7-17.5); Lymphocytes % (Auto) 13.4 % (15.5-49.0); Mean Cell Volume 93.9 fL (80.0-100.0); Mean Corpuscular HGB Conc 32.9 g/dL (31.0-36.0); Mean Platelet Volume 11.7 fL (7.4-10.4); Monocytes # (Auto) 0.29 K/mcL (0.10-0.90); Monocytes % (Auto) 7.8 % (1.0-12.0); Platelet Count 65 K/mcL (140-440); RBC 2.95 M/mcL (4.63-6.08); Red Cell Distribution Width 15.4 % (11.5-14.5); WBC 3.7 K/mcL (4.50-11.00)
--- NOTE | 2019-11-10 07:14 | Internal Med Progress Note ---
Medical - PN: Subj Patient information: Note initiated : 11/10/19 at 7:11 am Service Date, if different from initiated Date: [] Patient: Bran Canas 88 y/o M admitted on 11/07/19 for weight gain, shortness of breath, chest tightness.. Chief Complaint: [] Interval history: Mr. Canas is a 88 year old M Presents the ED referred by his primary care provider Dr. Choudhury for a month of increased swelling and weight gain 16 pounds. Swollen legs abdomen and shortness of breath. history of pleural effusions and heart failure and chronic A fibrillation. In the ED is found a large right-sided pleural effusion had thoracentesis of 1.8 L. Feels like his breathing is little improved after the thoracentesis. He is on Bumex at home and was recently started on spironolactone couple weeks ago. Started 1 week ago sildenafil for pulmonary arterial hypertension. Has chronic hyponatremia and pancytopenia. 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 Chavez Describes orthopnea. Has not been on anticoagulation for chronic atrial fibrillation because of severe bruising. 2 Was able to get some sleep last night. Urine output 2150 since admission +1800 cc removed via thoracentesis. Denies any shortness of breath currently. Essentially on room air right now. No new complaints. 2 Has put out a significant amount of urine. Weight substantially down. Patient feeling better this morning appears to have more energy. Legs less swollen. Sodium improved. No complaints. Desatted on the nocturnal pulse oximetry test last night. 11/10 Good urine output. Weight significantly down. Sodium improved. Patient doing well feeling better. Denies shortness of breath. Review of Systems: denies headache/fever/chills/nausea/vomiting/chest or abdominal pain/diarrhea. Otherwise see above. - Constitutional Vitals: Vital Signs Temp Pulse Resp BP Pulse Ox 99.1 F H 55 L 16 102/59 99 11/10/19 04:00 11/10/19 04:00 11/10/19 04:00 11/10/19 04:00 11/10/19 04:00 Period Temp Pulse Resp BP Sys/Terry Pulse Ox Last 24 Hr 96.7 F-99.1 F 55-73 82-115/49-76 90-100 Intake and Output 11/09/19 11/10/19 11/10/19 21:59 05:59 13:59 Intake Total 698 Output Total 1060 420 Balance -362 -420 Weight 90.86 kg Intake & Output: Intake & Output 11/09/19 11/10/19 11/10/19 21:59 05:59 13:59 Intake Total 698 Output Total 1060 420 Balance -362 -420 Weight 90.86 kg Intake: IV 98 Lasix 250 mg In Sodium Chloride 98 0.9% 225 ml @ 8 MG/HR 8 mls/hr IV Q24H [facility] Rx#:[id number] Oral 600 Output: Urine Catheter Amount 1060 420 Other: Meal Dinner Percent of Meal Consumed 75% Feeding Ability Assist with Tray Set Up Urine Appearance Hematuria Hematuria Large Blood Clots Large Blood Clots Uretheral (Egan) Hematuria Hematuria Large Blood Clots Urine Color Calhan Calhan Blood Tinged Uretheral (Egan) Blood Tinged Blood Tinged Urine Odor Normal Exam: General: Alert, Awake, No acute Distress Eyes/N/T: EOMI, Head/Neck: neck supple, JVD improved CV: irreg irreg, No murmurs, Pulm: Diminished left base, minimal rales right base much improved, no wheezing today Abd: soft, nontender, +BS x4 Ext: no clubbing/cyanosis, b/l LE edema 1+ greatly improved Neuro: Alert, no focal deficits, moves all extremities, Skin: warm/dry Medical - PN: Obj Da - Labs CBC & Chem 7: 11/10/19 05:00 11/10/19 05:00 Labs: Abnormal Lab Results 11/10/19 11/09/19 11/09/19 05:00 16:25 05:15 WBC RBC Hgb Hct RDW Plt Count MPV Lymph % (Auto) Lymph # (Auto) PT INR Sodium 129 L 126 L 130 L Chloride 87 L 84 L 88 L Carbon Dioxide 31 H 31 H BUN 46 H 40 H Creatinine 2.0 H 1.8 H Uric Acid 9.2 H 9.1 H Phosphorus 4.8 H Direct Bilirubin 0.4 H 0.4 H Troponin T NT-Pro-B Natriuret Pep Total Protein 5.7 L Urine Occult Blood Ur Leukocyte Esterase Urine RBC Urine WBC 11/09/19 11/08/1911/08/20 05:15 16:37 10:25 WBC 3.0 L RBC 2.87 L Hgb 9.0 L Hct 26.8 L RDW 15.2 H Plt Count 64 L MPV 12.0 H Lymph % (Auto) Lymph # (Auto) 0.53 L PT INR Sodium 126 L Chloride Carbon Dioxide BUN Creatinine Uric Acid Phosphorus Direct Bilirubin Troponin T NT-Pro-B Natriuret Pep Total Protein Urine Occult Blood 0.2 A Ur Leukocyte Esterase 25 A Urine RBC 8 H Urine WBC 12 H 11/08/19 11/08/19 11/08/19 05:10 05:10 05:10 WBC 3.4 L RBC 2.91 L Hgb 9.1 L Hct 26.7 L RDW 15.2 H Plt Count 69 L MPV 11.1 H Lymph % (Auto) 14.1 L Lymph # (Auto) 0.48 L PT 17.8 H INR 1.4 H Sodium 122 L Chloride 84 L Carbon Dioxide BUN 39 H Creatinine 1.8 H Uric Acid 9.1 H Phosphorus Direct Bilirubin 0.4 H Troponin T NT-Pro-B Natriuret Pep Total Protein 5.7 L Urine Occult Blood Ur Leukocyte Esterase Urine RBC Urine WBC 11/07/19 11/07/19 11/07/19 17:47 12:51 12:50 WBC RBC Hgb Hct RDW Plt Count MPV Lymph % (Auto) Lymph # (Auto) PT 17.0 H INR 1.3 H Sodium Chloride Carbon Dioxide BUN Creatinine Uric Acid Phosphorus Direct Bilirubin Troponin T 0.09 H* 0.11 H* NT-Pro-B Natriuret Pep Total Protein Urine Occult Blood Ur Leukocyte Esterase Urine RBC Urine WBC 11/07/19 11/07/19 12:50 12:50 WBC 3.1 L RBC 3.13 L Hgb 9.8 L Hct 29.3 L RDW 15.8 H Plt Count 68 L MPV 11.7 H Lymph % (Auto) 14.0 L Lymph # (Auto) 0.44 L PT INR Sodium 123 L Chloride 83 L Carbon Dioxide BUN 36 H Creatinine 1.9 H Uric Acid Phosphorus Direct Bilirubin Troponin T NT-Pro-B Natriuret Pep 55593.0 H Total Protein Urine Occult Blood Ur Leukocyte Esterase Urine RBC Urine WBC Meds: Medications Acetaminophen (Tylenol) 650 mg PO Q6HP PRN PRN Reason: PAIN/FEVER > 101 Last Admin: 11/10/19 05:08 Dose: 650 mg Documented by: Albuterol/Ipratropium (Duoneb) 3 ml NEB Q4HP PRN PRN Reason: Shortness Of Breath Allopurinol (Zyloprim) 100 mg PO DAILY [facility] Docusate Sodium (Colace) 100 mg PO BID [facility] Last Admin: 11/09/19 20:19 Dose: 100 mg Documented by: Doxazosin Mesylate (Cardura) 8 mg PO DAILY [facility] Finasteride (Proscar) 5 mg PO QDAY [facility] Fluticasone Propionate (Flonase) 1 spray NS DAILY [facility] Gabapentin (Neurontin) 300 mg PO TID [facility] Last Admin: 11/09/19 20:19 Dose: 300 mg Documented by: Heparin Sodium (Porcine) (Heparin) 5,000 unit SQ Q12 [facility] Last Admin: 11/09/19 20:19 Dose: 5,000 unit Documented by: Potassium Chloride 40 meq/ (Dextrose) 520 mls @ 130 mls/hr IV UD PRN PRN Reason: Potassium < 3 Magnesium Sulfate (Magnesium Sulfate) 2 gm in 50 mls @ 50 mls/hr IV UD PRN PRN Reason: Magnesium </= 1.6 Levothyroxine Sodium (Synthroid) 88 mcg PO QAMAC [facility] Melatonin (Melatonin 3mg Tablet) 3 mg PO HS [facility] Last Admin: 11/09/19 20:19 Dose: 3 mg Documented by: Metoprolol Succinate (Toprol Xl) 12.5 mg PO DAILY [facility] Metoprolol Tartrate (Lopressor) 5 mg IV Q2HP PRN PRN Reason: Tachyarrhythmias HR>110 Omeprazole (Prilosec) 40 mg PO QAMAC [facility] Ondansetron HCl (Zofran) 4 mg IV Q4HP PRN PRN Reason: Nausea And Vomiting Sildenafil Citrate [ (Revatio] 20 Mg) 1 dose PO TID [facility] Last Admin: 11/09/19 20:20 Dose: 1 dose Documented by: Polyethylene Glycol (Miralax) 17 gm PO DAILYP PRN PRN Reason: Constipation Potassium Chloride (Kdur) 40 meq PO UD PRN PRN Reason: Potssium is 3-3.5 Potassium Chloride (Kdur) 40 meq PO UD PRN PRN Reason: Potassium < 3 Senna (Senokot) 2 tab PO DAILYP PRN PRN Reason: Constipation Last Admin: 11/09/19 20:19 Dose: 2 tab Documented by: Simvastatin (Zocor) 10 mg PO DAILY [facility] Sodium Chloride (Saline Flush) 10 ml IV Q8 [facility] Last Admin: 11/10/19 05:08 Dose: 10 ml Documented by: Medical - PN: A/P - Time Spent With Patient Total time spent is greater than 50% in coordination of care (as documented) at patient's floor/unit and/or counseling patient: - Narrative A/P Narrative: A: *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 but also hypervolemic hyponatremia *CKD IIIb: follows with dr chavez *Anemia, chronic: *COPD (no home O2) *Hypothyroidism: *Neuropathy: *GERD: *BPH: *h/o GI bleed from [place] lesion @ [facility] 06/2019 s/p clipping: P: -hold lasix today -monitor I's/O's, weights, UOP -compression wraps, elevate legs -pt started on sildenafil 1week ago for PAH, will continue. Did discuss case with Dr. Quintanilla as well, who recommended nocturnal pulse oximetry test. -RT to assess for home O2 -f/u with Pulmonology for PAH and sleep study -cont BB -pt/ot -f/u cardiology outpt and GI for cirrhosis -f/u with PCP/Cardio regarding anticoagulation for Afib -ppx: heparin (hold if PLT<50k)/home ppi No CPR, Intubation ok Medical - PN: Qual - VTE Deep Vein Thrombosis/Pulmonary Embolism Present on Admission: No
[2019-11-10] MEDS ORDERED: OMEPRAZOLE 20 MG CAPSULE PO SCH (07:30)
[2019-11-10] MEDS ORDERED: LEVOTHYROXINE 88 MCG TABLET PO SCH (07:30)
[2019-11-10] MEDS ORDERED: SIMVASTATIN 10 MG TABLET PO SCH (09:00)
[2019-11-10] MEDS ORDERED: FLUTICASONE PROPIONATE SPRAY.NAS NS SCH (09:00)
[2019-11-10] MEDS ORDERED: FINASTERIDE 5 MG TABLET PO SCH (09:00)
[2019-11-10] MEDS ORDERED: DOXAZOSIN 4 MG TABLET PO SCH (09:00)
[2019-11-10] MEDS ORDERED: ALLOPURINOL 100 MG TABLET PO SCH (09:00)
[2019-11-10] MEDS ORDERED: METOPROLOL SUCCINATE 25 MG TAB.XL.24H PO SCH (09:00)
[2019-11-10] MEDS: DOCUSATE SODIUM 100 MG CAPSULE PO SCH (10:11)
[2019-11-10] MEDS: GABAPENTIN 300 MG CAPSULE PO SCH (10:11)
[2019-11-10] MEDS: HEPARIN 5,000 UNIT/ML VIAL SQ SCH (10:12)
[2019-11-10] MEDS: SILDENAFIL CITRATE 20 MG PO SCH ×2 (10:14→12:11)
[2019-11-10] MEDS: FLUTICASONE PROPIONATE SPRAY.NAS NS SCH (10:15)
[2019-11-10] MEDS ORDERED: FUROSEMIDE 250 MG in 0.9 % SODIUM CHLORIDE 225 ML IV SCH (11:00)
== END 2019-11-10 14:00 | DRG 291 ==
LOC: ED 12:09 → ICU 20:42
PROVIDERS: ADMIT Internal Medicine; ATTEND Internal Medicine

== ENCOUNTER 2019-12-12 11:41 | Inpatient (IN) ==
[2019-12-12] MEDS ORDERED: FUROSEMIDE 100 MG/10 ML VIAL IV ONE (12:05)
--- NOTE | 2019-12-12 12:16 | Emergency Department Note ---
General Adult HPI - General Chief complaint: Shortness of Breath/Dyspnea Stated complaint: weight gain, SOB Time Seen by Provider: 12/12/19 12:04 Source: patient, family Mode of arrival: ambulatory Limitations: no limitations - History of Present Illness HPI Narrative: 89 Patient's dyspnea arose over the course of days. Patient with associated symptoms of gradual progression, orthopnea. Past medical history is significant for cardiovascular disease/CHF/obesity, deconditioning. This patient's dyspnea was/not exacerbated by exertion within 50-100 feet of walking or several minutes of exercise. Also was/not associated with a nocturnal component. Patient is on oxygen at night however is not hypoxic on presentation. Symptoms are continuous. Additional associated symptoms such as cough, sputum production, nasal congestion, chest pain, joint swelling, muscle weakness were also inquired and are negative. Patient does have weight gain as well as lower extremity swelling. Patient primarily with working very hard to breathe/cannot get a deep breath. - Related Data Home Medications Medication Instructions Recorded Confirmed Allopurinol [Zyloprim] 100 mg PO DAILY 10/25/15 12/12/19 levothyroxine 88 mcg tablet 88 mcg PO QAM tab 12/14/17 12/12/19 omeprazole 20 mg capsule,delayed 40 mg PO BIDCC cap 12/15/17 12/12/19 release ascorbic acid (vitamin C) 1,000 mg 1 g PO QDAY tab 06/20/18 11/23/19 tablet cranberry 500 mg capsule 500 mg PO QDAY cap 11/29/18 12/12/19 calcium carbonate-vitamin D3 600 1 cap PO .QD cap 01/17/19 11/23/19 mg (1,500 mg)-400 unit capsule ferrous sulfate 325 mg (65 mg 325 mg PO QDAY tab 02/08/19 12/12/19 iron) tablet acetaminophen 500 mg capsule 500 mg PO Q6H PRN 05/29/19 12/12/19 loratadine 10 mg tablet 10 mg PO QDAY 05/29/19 12/12/19 melatonin 1 mg tablet 5 mg PO HS tab 05/29/19 11/23/19 gabapentin 300 mg capsule 300 mg PO TID cap 10/26/19 12/12/19 Sildenafil Citrate [Revatio] 20 mg PO TID 11/07/19 12/12/19 Fluticasone Propionate [Flonase] 1 spray NS DAILY 11/08/19 12/12/19 bisacodyl 10 mg rectal suppository 10 mg VT QDAY PRN 11/23/19 11/23/19 mineral oil 118 ml VT ONCE PRN 11/23/19 11/23/19 multivitamin,[id number] 1 tab PO QDAY 11/23/19 11/23/19 polyethylene glycol 3350 17 17 g PO QDAY PRN 11/23/19 11/23/19 gram/dose oral powder pravastatin 20 mg tablet 20 mg PO DAILY tab 11/23/19 12/12/19 spironolactone 50 mg tablet 50 mg PO QAM 11/23/19 11/23/19 Magnesium Oxide [Magnesium] 400 mg PO DAILY 12/12/19 12/12/19 Potassium Chloride [Kdur] 10 meq PO QAMCC 12/12/19 12/12/19 Torsemide [Demadex] 10 mg PO DAILY 12/12/19 12/12/19 Previous Rx's Medication Instructions Recorded ipratropium 0.5 mg-albuterol 3 mg 3 ml INHALATION QID #180 ml 12/15/17 (2.5 mg base)/3 mL nebulization soln doxazosin 4 mg tablet 8 mg PO DAILY #90 tab 09/22/18 finasteride 5 mg tablet 5 mg PO QDAY #90 tab 09/22/18 Metoprolol Succinate [Toprol Xl] 12.5 mg PO DAILY #30 tab.xl.24h 04/17/19 bumetanide 2 mg tablet 4 mg PO BID #120 tab 11/23/19 Allergies Allergy/AdvReac Type Severity Reaction Status Date / Time Amoxicillin AdvReac Mild Nausea Verified 12/12/19 11:45 sulfamethoxazole AdvReac Mild Nausea Verified 12/12/19 11:45 [From Bactrim] trimethoprim [From Bactrim] AdvReac Mild Nausea Verified 12/12/19 11:45 Review of Systems All systems ED: reviewed and negative except as stated. Past Medical History - Past Medical History PMFSH Narrative: All Active Problems (Last Reviewed 11/23/19 @ 14:36 by Kelsea Lacy RN) Pleural effusion (Acute) Anasarca (Acute) Portal hypertension (Acute) Hyponatremia (Chronic) Pancytopenia (Chronic) CHF (congestive heart failure) (Chronic) Diastolic dysfunction (Chronic) Atrial fibrillation (Chronic) Pulmonary hypertension (Chronic) Chronic hyponatremia (Chronic) Pleural effusion due to CHF (congestive heart failure) (Chronic) Cardiomegaly (Chronic) Hypercholesteremia (Chronic) Hypertension (Chronic) Chronic kidney disease, stage III (moderate) (Chronic) SIADH (syndrome of inappropriate ADH production) (Chronic) Chronic obstructive pulmonary disease (Chronic) Anemia (Chronic) Localized edema due to fluid overload (Chronic) Allergic rhinitis due to other allergen (Chronic) Primary generalized (osteo)arthritis (Chronic) Chronic musculoskeletal pain (Chronic) Pure hypercholesterolemia (Chronic) Neuropathy, idiopathic (Chronic) 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 Denies: marijuana Physical Exam Vital signs and evaluated for evidence of hypoxia or hemodynamic compromise specifically tachycardia/hypotension General: Alert, interactive, appropriate Head: Atraumatic, normocephalic Eyes: Extraocular movements intact, PERRLA Neck: Trachea midline, full range of motion Chest: Symmetrical chest wall rise, diffuse coarse breath sounds Cardiovascular: Patient with excellent perfusion to the extremities Abdomen: Nontender nondistended normoactive bowel sounds no masses no hepatosplenomegaly no rebound no guarding Extremities: Full range of motion joints, warm well perfused,+4 pitting edema bilateral lower extremities Neuro: Alert, oriented x3, cranial nerves II through XII grossly intact, normal gait Psychiatric: Normal affect normal mood Limitations: no limitations Course Vital Signs Temperature 97.3 F 12/12/19 11:42 Pulse Rate 70 12/12/19 11:42 Respiratory Rate 18 12/12/19 11:42 Blood Pressure 120/67 12/12/19 11:42 Pulse Oximetry (%) 95 12/12/19 11:42 Temperature 97.3 F 12/12/19 11:42 Pulse Rate 74 12/12/19 13:46 Respiratory Rate 16 12/12/19 13:46 Blood Pressure 109/64 12/12/19 13:46 Pulse Oximetry (%) 94 12/12/19 13:46 Medical Decision Making - [facility] Narrative Medical decision making narrative: Acute dyspnea differential diagnosis considered in this case included MA, heart failure, cardiac tamponade, bronchospasm, pulmonary embolism, pneumothorax, pneumonia or infection, and upper airway obstruction. After review of chart and patient history/physical exam/labs as well as imaging the differential diagnosis addressed was acute hypoxic respiratory failure, COPD exacerbation, pneumonia, sepsis, pulmonary edema, pneumothorax, metabolic acidosis, acute respiratory distress syndrome, panic attack, airflow obstruction, restrictive lung disease, aspiration, congestive heart failure, hypercapnia, influenza, bronchitis, upper respiratory infection, pulmonary embolism, cardiac tamponade, valvular obstruction, MA/ACS, and arrhythmia in my medical opinion this patient has dyspnea that reasonably does require admission to the hospital. Patient is followed by CHF clinic. Patient on torsemide as only medication currently for fluid management. Patient with gradual recent weight gain concern for kidney disease and inability to process urine. Family concerned he may need to be hospitalized for fluid removal. Patient given Lasix 80 mg IV in the emergency department. Patient noted to have sodium 125. Patient also has pleural effusion. Significant lower extremity edema. I discussed the case with Dr. Gallagher who agrees to admit the patient. - Lab Data Result diagrams: 12/12/19 12:09 12/12/19 12:09 Lab Results 12/12/19 12/12/19 Range/Units 12:09 12:09 WBC 2.8 L (4.50-11.00) K/mcL RBC 2.97 L (4.63-6.08) M/mcL Hgb 9.2 L (13.7-17.5) g/dL Hct 28.4 L (40.1-51.0) % MCV 95.6 (80.0-100.0) fL MCH 31.0 (26.0-34.0) pg MCHC 32.4 (31.0-36.0) g/dL RDW 15.9 H (11.5-14.5) % Plt Count 52 L (140-440) K/mcL MPV 12.8 H (7.4-10.4) fL Gran % 70.2 (38.0-78.0) % Lymph % (Auto) 15.1 L (15.5-49.0) % Garrett % (Auto) 7.5 (1.0-12.0) % Eos % (Auto) 6.5 (0.0-7.0) % Baso % (Auto) 0.7 (0.0-2.0) % Gran # 1.96 (1.80-8.00) K/mcL Lymph # (Auto) 0.42 L (1.50-4.80) K/mcL Garrett # (Auto) 0.21 (0.10-0.90) K/mcL Eos # (Auto) 0.18 (0.00-0.70) K/mcL Baso # (Auto) 0.02 (0.00-0.30) K/mcL Sodium 125 L (133-145) mmol/L Potassium 4.3 (3.3-5.1) mmol/L Chloride 85 L (96-108) mmol/L Carbon Dioxide 32 H (22-30) mmol/L Anion Gap 8.0 (8-16) BUN 56 H (8-23) mg/dl Creatinine 2.2 H (0.7-1.2) mg/dl GFR Calculation 26 Glucose 96 (70-105) mg/dL Calcium 9.4 (8.6-10.4) mg/dl Total Bilirubin 0.9 (0.0-1.0) mg/dL AST 27 (0-37) U/l ALT 11 (0-40) U/l Alkaline Phosphatase 91 (39-117) U/L NT-Pro-B Natriuret Pep 77429.0 H (0-450) pg/ml Total Protein 6.8 (5.9-8.4) gm/dL Albumin 4.1 (3.2-5.2) gm/dL Globulin 2.7 (2.2-3.7) gm/dL Albumin/Globulin Ratio 1.5 (1.0-2.3) - EKG Data EKG #1 EKG results narrative: EKG: Rate: 69, VT: 180, rhythm: Sinus, patient without ST elevations to suggest STEMI, patient without concerning T wave inversions or other findings to suggest NSTEMI Disposition Pt seen by CATERING MANAGER/PA only: No Clinical Impression: Hyponatremia CHF (congestive heart failure) Qualifiers: Heart failure type: combined systolic and diastolic Heart failure chronicity: acute on chronic Qualified Code(s): I50.43 - Acute on chronic combined systolic (congestive) and diastolic (congestive) heart failure Disposition: Xfer As Outpt/Obs (TS) Condition: Serious Referrals: Kali Choudhury MD [Primary Care Provider] -
[2019-12-12 12:54] LABS: Basophils # (Auto) 0.02 K/mcL (0.00-0.30); Basophils % (Auto) 0.7 % (0.0-2.0); Eosinophils # (Auto) 0.18 K/mcL (0.00-0.70); Eosinophils % (Auto) 6.5 % (0.0-7.0); Granulocytes % (Auto) 70.2 % (38.0-78.0); Hematocrit 28.4 % (40.1-51.0); Hemoglobin 9.2 g/dL (13.7-17.5); Lymphocytes # (Auto) 0.42 K/mcL (1.50-4.80); Lymphocytes % (Auto) 15.1 % (15.5-49.0); Mean Cell Volume 95.6 fL (80.0-100.0); Mean Corpuscular HGB Conc 32.4 g/dL (31.0-36.0); Mean Platelet Volume 12.8 fL (7.4-10.4); Monocytes # (Auto) 0.21 K/mcL (0.10-0.90); Monocytes % (Auto) 7.5 % (1.0-12.0); RBC 2.97 M/mcL (4.63-6.08); Red Cell Distribution Width 15.9 % (11.5-14.5); WBC 2.8 K/mcL (4.50-11.00)
[2019-12-12 13:11] LABS: ALT/SGPT 11 U/l (0-40); AST/SGOT 27 U/l (0-37); Albumin 4.1 gm/dL (3.2-5.2); Albumin/Globulin Ratio 1.5 (1.0-2.3); Alkaline Phosphatase 91 U/L (39-117); Bilirubin,Total 0.9 mg/dL (0.0-1.0); Blood Urea Nitrogen 56 mg/dl (8-23); Calcium 9.4 mg/dl (8.6-10.4); Carbon Dioxide 32 mmol/L (22-30); Globulin 2.7 gm/dL (2.2-3.7); Glomerular Filtration Rate 26; Glucose 96 mg/dL (70-105)
[2019-12-12 13:12] LABS: Chloride 85 mmol/L (96-108)
[2019-12-12 13:44] LABS: Platelet Count 52 K/mcL (140-440)
--- NOTE | 2019-12-12 13:55 | XRay Report ---
CLINICAL INFORMATION: CP/dyspnea COMPARISON: 11/07/2019 FINDINGS: Right pleural effusion has reaccumulated and is now quite large resulting in complete compressive right lower and middle lobe atelectasis. Marked cardiomegaly is stable. Mediastinum is unremarkable. The pulmonary vessels are mildly distended and there is minimal bronchovascular edema compatible was recurrent CHF. IMPRESSION: Moderate CHF Large recurrent right pleural effusion resulting in complete compressive right middle and lower lobe atelectasis. Suggest Ultrasound-guided thoracentesis Interpreted and Authenticated by: Korey Wallace 12/12/19
--- NOTE | 2019-12-12 14:34 | Internal Med History&Physical ---
Medical - H&P: [facility] Patient information: Note initiated : 12/12/19 at 2:31 pm Service Date, if different from initiated Date: [] Patient: Bran Canas a 89 y/o M admitted on for weight gain, SOB. Chief Complaint: [] History of present illness: Mr. Canas is a 89 year old M Who presents the ED with increased shortness of breath and swelling. He was admitted and beginning of November for CHF exacerbation and diuresed quite well. He followed up with cardiology who discontinued the Bumex and Aldactone and started him on torsemide 30 mg daily. The past week he has had increasing swelling. Sounds like over the weekend his torsemide was increased to 30 twice a day per the phone call with the hospital intern. They obtain some labs and talk to the patient's POA, daughter, and asked her bring him in for diuresis. Also saw career development facilitator her last discharge. He complains of orthopnea. Denies chest pain. Occasional cough. Some wheezing. In the ED he was evaluated and found to have hyponatremia which he does ch ronically although was decreased from discharge of last admission. He is got chronic pancytopenia and chronic kidney disease. Started sildenafil earlier this year for pulmonary arterial hypertension. Has chronic hyponatremia and pancytopenia. 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 Chavez Has not been on anticoagulation for chronic atrial fibrillation because pt refuses. Chest x-ray done which showed a right large recurrent right pleural effusion. Review of Systems: Positive as above. Denies headache/fever/chills/nausea/vomiting/chest or abdominal pain/cough/diarrhea. Remaining 10 point review of system reviewed negative. Medical - H&P: [facility] Medical history: Medical history: Medical History (Last Updated 11/07/19 @ 12:57 by Heron Carpio DO) CHF (congestive heart failure) (Chronic) Diastolic dysfunction (Chronic) Atrial fibrillation (Chronic) Pulmonary hypertension (Chronic) Chronic hyponatremia (Chronic) Pleural effusion due to CHF (congestive heart failure) (Chronic) Cardiomegaly (Chronic) Hypercholesteremia (Chronic) Hypertension (Chronic) Chronic kidney disease, stage III (moderate) (Chronic) SIADH (syndrome of inappropriate ADH production) (Chronic) Chronic obstructive pulmonary disease (Chronic) Anemia (Chronic) Localized edema due to fluid overload (Chronic) Allergic rhinitis due to other allergen (Chronic) Primary generalized (osteo)arthritis (Chronic) Chronic musculoskeletal pain (Chronic) Pure hypercholesterolemia (Chronic) Neuropathy, idiopathic (Chronic) 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) use of aspirin (Chronic) Hypothyroidism (Chronic) Gout (Chronic) Exertional dyspnea (Chronic) Peripheral edema (Chronic) Abnormal PFTs (pulmonary function tests) (Chronic) Seasonal allergies (Chronic) Vitamin D deficiency (Chronic) Hip fracture, right (Chronic) Hyponatremia with decreased serum osmolality (Resolved) Shortness of breath (Resolved) Onychomycosis (Inactive) Past Surgical History (Last Reviewed 10/26/19 @ 14:40 by Kelsea Lacy RN) H/O hernia repair (Chronic) History of bilateral knee replacement (Chronic) History of colonoscopy (Chronic 10/25/15) History of knee replacement (Chronic) History of tonsillectomy (Chronic) History of total right hip arthroplasty (Chronic) Hx of shoulder surgery (Chronic) Family History (Last Reviewed 10/26/19 @ 14:40 by Kelsea Lacy RN) Brother Cardiac disease Diabetes Mother Diabetes Social history: Quit smoking 1991 Was a heavy drinker in the past but does not drink anymore Uses a cane and a walker to ambulate Lives at home with the daughter who is the POA Medical - H&P: Meds Home Medications Medication Instructions Recorded Confirmed Type Allopurinol [Zyloprim] 100 mg PO DAILY 10/25/15 12/12/19 History levothyroxine 88 mcg tablet 88 mcg PO QAM tab 12/14/17 12/12/19 History ipratropium 0.5 mg-albuterol 3 mg 3 ml INHALATION QID #180 ml 12/15/17 11/23/19 Rx (2.5 mg base)/3 mL nebulization soln omeprazole 20 mg capsule,delayed 40 mg PO BIDCC cap 12/15/17 12/12/19 History release ascorbic acid (vitamin C) 1,000 mg 1 g PO QDAY tab 06/20/18 11/23/19 History tablet doxazosin 4 mg tablet 8 mg PO DAILY #90 tab 09/22/18 12/12/19 Rx finasteride 5 mg tablet 5 mg PO QDAY #90 tab 09/22/18 12/12/19 Rx cranberry 500 mg capsule 500 mg PO QDAY cap 11/29/18 12/12/19 History calcium carbonate-vitamin D3 600 1 cap PO .QD cap 01/17/19 11/23/19 History mg (1,500 mg)-400 unit capsule ferrous sulfate 325 mg (65 mg 325 mg PO QDAY tab 02/08/19 12/12/19 History iron) tablet Metoprolol Succinate [Toprol Xl] 12.5 mg PO DAILY #30 tab.xl.24h 04/17/19 12/12/19 Rx acetaminophen 500 mg capsule 500 mg PO Q6H PRN 05/29/19 12/12/19 History loratadine 10 mg tablet 10 mg PO QDAY 05/29/19 12/12/19 History melatonin 1 mg tablet 5 mg PO HS tab 05/29/19 11/23/19 History gabapentin 300 mg capsule 300 mg PO TID cap 10/26/19 12/12/19 History Sildenafil Citrate [Revatio] 20 mg PO TID 11/07/19 12/12/19 History Fluticasone Propionate [Flonase] 1 spray NS DAILY 11/08/19 12/12/19 History bisacodyl 10 mg rectal suppository 10 mg HI QDAY PRN 11/23/19 11/23/19 History bumetanide 2 mg tablet 4 mg PO BID #120 tab 11/23/19 11/23/19 Rx mineral oil 118 ml HI ONCE PRN 11/23/19 11/23/19 History multivitamin,[id number] 1 tab PO QDAY 11/23/19 11/23/19 History polyethylene glycol 3350 17 17 g PO QDAY PRN 11/23/19 11/23/19 History gram/dose oral powder pravastatin 20 mg tablet 20 mg PO DAILY tab 11/23/19 12/12/19 History spironolactone 50 mg tablet 50 mg PO QAM 11/23/19 11/23/19 History Magnesium Oxide [Magnesium] 400 mg PO DAILY 12/12/19 12/12/19 History Potassium Chloride [Kdur] 10 meq PO QAMCC 12/12/19 12/12/19 History Torsemide [Demadex] 10 mg PO DAILY 12/12/19 12/12/19 History Allergies Allergy/AdvReac Type Severity Reaction Status Date / Time Amoxicillin AdvReac Mild Nausea Verified 12/12/19 11:45 sulfamethoxazole AdvReac Mild Nausea Verified 12/12/19 11:45 [From Bactrim] trimethoprim [From Bactrim] AdvReac Mild Nausea Verified 12/12/19 11:45 Medical - H&P: Exam - Constitutional Vitals: Temp Pulse Resp BP Pulse Ox 97.3 F 74 16 109/64 94 12/12/19 11:42 12/12/19 13:46 12/12/19 13:46 12/12/19 13:46 12/12/19 13:46 Exam: General: Alert, Awake, No acute Distress Eyes/N/T: EOMI, PERRL, +JVD Head/Neck: neck supple, normocephalic atraumatic CV: irreg irreg, No murmurs, Pulm: Diminished b/l, mild exp b/l wheezing, rales right base Abd: soft, nontender, +BS x4 Ext: no clubbing/cyanosis, b/l LE edema 4+ to abdomen Neuro: Alert, no focal deficits, moves all extremities, CN 2-12 grossly intact, symmetrical strength b/l upper/lower, sensations intact b/l upper/lower Skin: warm/dry Medical - H&P: Reslt - Labs CBC & Chem 7: 12/12/19 12:09 12/12/19 12:09 Labs: Short CBC 12/12/19 Range/Units 12:09 WBC 2.8 L (4.50-11.00) K/mcL Hgb 9.2 L (13.7-17.5) g/dL Hct 28.4 L (40.1-51.0) % Plt Count 52 L (140-440) K/mcL BMP 12/12/19 12:09 Sodium 125 L Potassium 4.3 Chloride 85 L Carbon Dioxide 32 H BUN 56 H Creatinine 2.2 H Glucose 96 Calcium 9.4 Liver Function 12/12/19 Range/Units 12:09 Total Bilirubin 0.9 (0.0-1.0) mg/dL AST 27 (0-37) U/l ALT 11 (0-40) U/l Alkaline Phosphatase 91 (39-117) U/L Albumin 4.1 (3.2-5.2) gm/dL Medical - H&P: A/P - Narrative A/P Narrative: A: *Acute on chronic right heart failure (Cor Pulmonale) and Left heart failure systolic/diastolic w/Anasarca: -long-term prognosis guarded -October echo does not report reduced RV systolic but April 2019 reports moderately reduced RV systolic fxn - *Pleural effusion on Right: -thora (12/11) of L (has been transudative in past) *Pulmonary arterial hypertension: -started on sildenafil in October by PCP *Atrial fibrillation: Has not been on anticoagulation because of severe bruising, understands increased stroke risk. 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 He dose have appt this Wednesday @10:45am -f/u with GI for cirrhosis -ppx: SCD/ heparin (hold if PLT<50k)/home ppi DNR
--- NOTE | 2019-12-12 15:21 | XRay Report ---
CLINICAL INFORMATION: post thora COMPARISON: 12/12/2019 1205 hour preprocedure film FINDINGS: Marked cardiomegaly is unchanged. Mediastinum is unremarkable. Pulmonary vessels remain mildly distended and there is mild interstitial edema throughout both lungs. Following right thoracentesis, there is a small/moderate residual right pleural effusion. The right middle and lower lobes are partially reexpanded with minor residual atelectasis. IMPRESSION: Following right thoracentesis, small to moderate residual pleural effusion. The right middle and lower lobes have partially reexpanded. Mild CHF Interpreted and Authenticated by: Korey Wallace 12/12/19
--- NOTE | 2019-12-12 15:30 | Ultrasound Report ---
Ultrasound-guided thoracentesis CLINICAL INFORMATION: Large recurrent right pleural effusion. TECHNIQUE: Procedure and risks including possibility of bleeding, infection, and pneumothorax were explained to the patient. They understood and wished to proceed. With the patient in upright position, the fluid was first sonographically localized over the posterior right 10th intercostal space at posterior axillary line. The skin overlying this region was marked, prepped and locally anesthetized with 1% lidocaine using a 25-gauge needle to the level the parietal pleura. An 18-gauge [place] needle was then advanced under sonographic guidance into the pleural fluid 1.9 L cc of simple appearing transudative fluid was aspirated. Post procedure scanning shows only minimal residual fluid. Patient tolerated procedure well without apparent complication. Follow-up chest x-ray to be obtained IMPRESSION: Successful thoracentesis yielding 1.9 L of transudative appearing simple pleural fluid. No apparent complication Interpreted and Authenticated by: Korey Wallace 12/12/19
[2019-12-12] MEDS ORDERED: POTASSIUM CHLORIDE 40 MEQ in DEXTROSE 5% IN WATER 500 ML IV PRN (17:54)
[2019-12-12] MEDS ORDERED: ONDANSETRON 4 MG/2 ML VIAL IV PRN (17:54)
[2019-12-12] MEDS ORDERED: MAGNESIUM SULFATE 2 GM/50 ML BAG IV PRN (17:54)
[2019-12-12] MEDS ORDERED: POLYETHYLENE GLYCOL 3350 17 GM PACKET PO PRN (17:54)
[2019-12-12] MEDS ORDERED: ACETAMINOPHEN 325 MG TABLET PO PRN (17:54)
[2019-12-12] MEDS ORDERED: IPRATROPIUM/ALBUTEROL 3 ML AMPUL.NEB NEB PRN (17:54)
[2019-12-12] MEDS ORDERED: POTASSIUM CHLORIDE 20 MEQ TABLET PO PRN ×2 (17:54)
[2019-12-12] MEDS ORDERED: SENNOSIDES 1 TABLET PO PRN (17:54)
[2019-12-12] MEDS ORDERED: LACTULOSE 20 GM/30 ML ORAL.SOL PO PRN (17:54)
[2019-12-12] MEDS: SILDENAFIL CITRATE 20 MG PO SCH ×2 (17:54→21:21)
[2019-12-12 19:33] LABS: Appearance,Urine CLEAR; Bilirubin,Urine NEG (NEG); Color,Urine YELLOW; Culture Indicated,Urine NO; Glucose,Urine (UA) NEGATIVE (NEG); Ketones,Urine NEG (NEG); Leukocyte Esterase,Urine NEG /uL (NEG); Nitrate,Urine NEG (NEG); Protein,Urine NEG (NEG); Specific Gravity,Urine 1.009 (1.000-1.035); Urine Blood NEG mg/dL (<0.03); Urobilinogen,Urine NEG (NEG)
[2019-12-12] MEDS: FUROSEMIDE 250 MG in 0.9 % SODIUM CHLORIDE 225 ML IV SCH (19:35)
[2019-12-12] MEDS: GABAPENTIN 300 MG CAPSULE PO SCH ×2 (19:35→21:00)
[2019-12-12] MEDS: FAMOTIDINE 20 MG TABLET PO SCH (21:21)
[2019-12-12] MEDS: MELATONIN 3 MG TABLET PO SCH (21:21)
[2019-12-12] MEDS: DOCUSATE SODIUM 100 MG CAPSULE PO SCH ×2 (21:21→21:23)
[2019-12-12] MEDS: 0.9 % SODIUM CHLORIDE 10 ML SYRINGE IV SCH (21:22)
[2019-12-13 01:02] LABS: Blood Urea Nitrogen 60 mg/dl (8-23); Carbon Dioxide 33 mmol/L (22-30); Chloride 90 mmol/L (96-108); Glomerular Filtration Rate 25; Glucose 116 mg/dL (70-105)
[2019-12-13] MEDS: 0.9 % SODIUM CHLORIDE 10 ML SYRINGE IV SCH ×3 (05:03→20:12)
[2019-12-13 07:16] LABS: Basophils # (Auto) 0.02 K/mcL (0.00-0.30); Basophils % (Auto) 0.6 % (0.0-2.0); Eosinophils # (Auto) 0.21 K/mcL (0.00-0.70); Granulocytes % (Auto) 73.8 % (38.0-78.0); Hematocrit 25.6 % (40.1-51.0); Hemoglobin 8.6 g/dL (13.7-17.5); Lymphocytes # (Auto) 0.45 K/mcL (1.50-4.80); Lymphocytes % (Auto) 12.8 % (15.5-49.0); Mean Cell Volume 94.8 fL (80.0-100.0); Mean Corpuscular HGB Conc 33.6 g/dL (31.0-36.0); Mean Platelet Volume 13.2 fL (7.4-10.4); Monocytes # (Auto) 0.24 K/mcL (0.10-0.90); Monocytes % (Auto) 6.8 % (1.0-12.0); Platelet Count 51 K/mcL (140-440); Red Cell Distribution Width 15.9 % (11.5-14.5); WBC 3.5 K/mcL (4.50-11.00)
--- NOTE | 2019-12-13 07:17 | Internal Med Progress Note ---
Medical - PN: Subj Patient information: Note initiated : 12/13/19 at 7:14 am Service Date, if different from initiated Date: [] Patient: Bran Canas a 89 y/o M admitted on 12/12/19 for weight gain, SOB. Chief Complaint: [] Interval history: Mr. Canas is a 89 year old M Who presents the ED with increased shortness of breath and swelling. He was admitted and beginning of November for CHF exacerbation and diuresed quite well. He followed up with cardiology who discontinued the Bumex and Aldactone and started him on torsemide 30 mg daily. The past week he has had increasing swelling. Sounds like over the weekend his torsemide was increased to 30 twice a day per the phone call with the marketing sales consultant. They obtain some labs and talk to the patient's POA, daughter, and asked her bring him in for diuresis. Also saw operations inspector her last discharge. He complains of orthopnea. Denies chest pain. Occasional cough. Some wheezing. In the ED he was evaluated and found to have hyponatremia which he does chr onically although was decreased from discharge of last admission. He is got chronic pancytopenia and chronic kidney disease. Started sildenafil earlier this year for pulmonary arterial hypertension. Has chronic hyponatremia and pancytopenia. 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 Chavez Has not been on anticoagulation for chronic atrial fibrillation because pt refuses. Chest x-ray done which showed a right large recurrent right pleural effusion. 12/12 He feels his breathing is improving. No overnight events or new complaints. Diuresing well on the Lasix drip. Review of Systems: denies headache/fever/chills/nausea/vomiting/chest or abdominal pain/diarrhea. Otherwise see above. - Constitutional Vitals: Vital Signs Temp Pulse Resp BP Pulse Ox 98.7 F 58 L 16 105/62 95 12/13/19 05:42 12/13/19 05:42 12/13/19 05:42 12/13/19 05:01 12/13/19 05:42 Period Temp Pulse Resp BP Sys/Terry Pulse Ox Last 24 Hr 96.3 F-98.9 F 34-95 12-25 90-126/46-77 91-100 Intake and Output 12/12/19 12/13/1920 21:59 05:59 13:59 Output Total 300 1200 Balance -300 -1200 Weight 96.388 kg Intake & Output: Intake & Output 12/12/19 12/13/19 12/13/19 21:59 05:59 13:59 Output Total 300 1200 Balance -300 -1200 Weight 96.388 kg Output: Urine Catheter Amount 100 1200 Void Amount 200 Other: Urine Appearance Clear Clear Hematuria Uretheral (Egan) Clear Urine Color Straw Straw Uretheral (Egan) Straw Urine Odor Normal Normal Exam: General: Alert, Awake, No acute Distress Eyes/N/T: EOMI, , +JVD improving Head/Neck: neck supple, CV: irreg irreg, No murmurs, Pulm: Diminished b/l, rales right base, no wheezing today Abd: soft, nontender, +BS x4 Ext: no clubbing/cyanosis, b/l LE edema 3+ to abdomen Neuro: Alert, no focal deficits, moves all extremities, Skin: warm/dry Medical - PN: Obj Da - Labs CBC & Chem 7: 12/13/19 04:54 12/13/19 04:54 Labs: Abnormal Lab Results 12/12/19 12/12/19 12/12/19 23:54 12:09 12:09 WBC RBC Hgb Hct RDW Plt Count MPV Lymph % (Auto) Lymph # (Auto) Sodium 131 L 125 L Chloride 90 L 85 L Carbon Dioxide 33 H 32 H BUN 60 H 56 H Creatinine 2.3 H 2.2 H Glucose 116 H NT-Pro-B Natriuret Pep 95607.0 H TSH 10.19 H 12/12/19 12:09 WBC 2.8 L RBC 2.97 L Hgb 9.2 L Hct 28.4 L RDW 15.9 H Plt Count 52 L MPV 12.8 H Lymph % (Auto) 15.1 L Lymph # (Auto) 0.42 L Sodium Chloride Carbon Dioxide BUN Creatinine Glucose NT-Pro-B Natriuret Pep TSH Meds: Medications Acetaminophen (Tylenol) 650 mg PO Q6HP PRN PRN Reason: PAIN/FEVER > 101 Albuterol/Ipratropium (Duoneb) 3 ml NEB Q4HP PRN PRN Reason: Shortness Of Breath Allopurinol (Zyloprim) 100 mg PO DAILY [facility] Docusate Sodium (Colace) 100 mg PO BID [facility] Last Admin: 12/12/19 21:23 Dose: Not Given Documented by: Doxazosin Mesylate (Cardura) 8 mg PO DAILY [facility] Enoxaparin Sodium (Lovenox) 30 mg SQ DAILY [facility] Famotidine (Pepcid) 20 mg PO HS [facility] Last Admin: 12/12/19 21:21 Dose: 20 mg Documented by: Finasteride (Proscar) 5 mg PO QDAY [facility] Gabapentin (Neurontin) 300 mg PO TID [facility] Last Admin: 12/12/19 21:00 Dose: Not Given Documented by: Potassium Chloride 40 meq/ (Dextrose) 520 mls @ 130 mls/hr IV UD PRN PRN Reason: Potassium < 3 Magnesium Sulfate (Magnesium Sulfate) 2 gm in 50 mls @ 50 mls/hr IV UD PRN PRN Reason: Magnesium </= 1.6 Furosemide 250 mg/ Sodium (Chloride) 250 mls @ 10 mls/hr IV Q24H [facility]; Protocol Last Admin: 12/12/19 19:35 Dose: 10 mg/hr, 10 mls/hr Documented by: Lactulose (Cephulac) 20 gm PO DAILYP PRN PRN Reason: Constipation Levothyroxine Sodium (Synthroid) 100 mcg PO QAMAC [facility] Melatonin (Melatonin 3mg Tablet) 3 mg PO HS [facility] Last Admin: 12/12/19 21:21 Dose: 3 mg Documented by: Metoprolol Succinate (Toprol Xl) 12.5 mg PO DAILY [facility] Ondansetron HCl (Zofran) 4 mg IV Q4HP PRN PRN Reason: Nausea And Vomiting Sildenafil Citrate [ (Revatio] 20 Mg) 1 dose PO TID [facility] Last Admin: 12/12/19 21:21 Dose: 1 dose Documented by: Polyethylene Glycol (Miralax) 17 gm PO DAILYP PRN PRN Reason: Constipation Potassium Chloride (Kdur) 40 meq PO UD PRN PRN Reason: Potssium is 3-3.5 Potassium Chloride (Kdur) 40 meq PO UD PRN PRN Reason: Potassium < 3 Potassium Chloride (Kdur) 10 meq PO QAMCC [facility] Senna (Senokot) 2 tab PO DAILYP PRN PRN Reason: Constipation Simvastatin (Zocor) 10 mg PO DAILY [facility] Sodium Chloride (Saline Flush) 10 ml IV Q8 [facility] Last Admin: 12/13/19 05:03 Dose: Not Given Documented by: Spironolactone (Aldactone) 50 mg PO QAM [facility] Medical - PN: A/P - Time Spent With Patient Total time spent is greater than 50% in coordination of care (as documented) at patient's floor/unit and/or counseling patient: - Narrative A/P Narrative: A: *Acute on chronic right heart failure (Cor Pulmonale) and Left heart failure systolic/diastolic w/Anasarca: -long-term prognosis guarded -October echo does not report reduced RV systolic but April 2019 reports moderately reduced RV systolic fxn -is on torsemide 30mg daily *Pleural effusion on Right: -thora (12/11) of 1.9L (has been transudative in past) *Pulmonary arterial hypertension: -started on sildenafil in October by PCP *Atrial fibrillation: Has not been on anticoagulation because of severe bruising, understands increased stroke risk. 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 He dose have appt this Wednesday @10:45am -f/u with GI for cirrhosis -ppx: SCD/ lovenox (hold if PLT<50k)/home ppi DNR
[2019-12-13] MEDS ORDERED: LEVOTHYROXINE 88 MCG TABLET PO SCH (07:30)
[2019-12-13 07:43] LABS: ALT/SGPT 9 U/l (0-40); AST/SGOT 21 U/l (0-37); Albumin 3.4 gm/dL (3.2-5.2); Albumin/Globulin Ratio 1.5 (1.0-2.3); Alkaline Phosphatase 76 U/L (39-117); Bilirubin,Direct 0.4 mg/dL (0.0-0.3); Bilirubin,Total 0.8 mg/dL (0.0-1.0); Blood Urea Nitrogen 60 mg/dl (8-23); Calcium 8.7 mg/dl (8.6-10.4); Carbon Dioxide 32 mmol/L (22-30); Globulin 2.3 gm/dL (2.2-3.7); Glomerular Filtration Rate 27; Glucose 93 mg/dL (70-105); Lactate Dehydrogenase 197 U/L (94-250); Phosphorous 3.5 mg/dL (2.7-4.5); Triglycerides 42 mg/dl (<150); Uric Acid 9.2 mg/dL (2.5-8.0)
[2019-12-13 07:49] LABS: INR 1.5 (0.9-1.1); Prothrombin Time 18.5 sec (11.9-14.5)
[2019-12-13 07:51] LABS: Chloride 88 mmol/L (96-108)
[2019-12-13] MEDS: ENOXAPARIN 30 MG/0.3 ML SYRINGE SQ SCH (08:31)
[2019-12-13] MEDS: POTASSIUM CHLORIDE 10 MEQ TABLET PO SCH (08:31)
[2019-12-13] MEDS: SIMVASTATIN 10 MG TABLET PO SCH (08:31)
[2019-12-13] MEDS: DOCUSATE SODIUM 100 MG CAPSULE PO SCH ×2 (08:31→20:11)
[2019-12-13] MEDS: ALLOPURINOL 100 MG TABLET PO SCH (08:31)
[2019-12-13] MEDS: SPIRONOLACTONE 25 MG TABLET PO SCH (08:32)
[2019-12-13] MEDS: GABAPENTIN 300 MG CAPSULE PO SCH ×3 (08:32→20:11)
[2019-12-13] MEDS: SILDENAFIL CITRATE 20 MG PO SCH ×3 (08:34→20:11)
[2019-12-13] MEDS: DOXAZOSIN 4 MG TABLET PO SCH (08:38)
[2019-12-13] MEDS: FINASTERIDE 5 MG TABLET PO SCH (08:38)
[2019-12-13] MEDS: LEVOTHYROXINE 100 MCG TABLET PO SCH (08:39)
[2019-12-13] MEDS ORDERED: PRAVASTATIN 20 MG TABLET PO SCH (09:00)
[2019-12-13] MEDS: MELATONIN 3 MG TABLET PO SCH (20:11)
[2019-12-13] MEDS: FAMOTIDINE 20 MG TABLET PO SCH (20:11)
[2019-12-13] MEDS: FUROSEMIDE 250 MG in 0.9 % SODIUM CHLORIDE 225 ML IV SCH (20:11)
[2019-12-14] MEDS: 0.9 % SODIUM CHLORIDE 10 ML SYRINGE IV SCH ×3 (05:16→22:03)
[2019-12-14 05:49] LABS: Basophils # (Auto) 0.04 K/mcL (0.00-0.30); Basophils % (Auto) 1.3 % (0.0-2.0); Eosinophils # (Auto) 0.25 K/mcL (0.00-0.70); Eosinophils % (Auto) 8.1 % (0.0-7.0); Granulocytes % (Auto) 65.1 % (38.0-78.0); Hematocrit 25.6 % (40.1-51.0); Hemoglobin 8.6 g/dL (13.7-17.5); Lymphocytes # (Auto) 0.54 K/mcL (1.50-4.80); Lymphocytes % (Auto) 17.4 % (15.5-49.0); Mean Cell Volume 95.2 fL (80.0-100.0); Mean Corpuscular HGB Conc 33.6 g/dL (31.0-36.0); Mean Platelet Volume 12.3 fL (7.4-10.4); Monocytes # (Auto) 0.25 K/mcL (0.10-0.90); Monocytes % (Auto) 8.1 % (1.0-12.0); Platelet Count 51 K/mcL (140-440); RBC 2.69 M/mcL (4.63-6.08); Red Cell Distribution Width 15.9 % (11.5-14.5); WBC 3.1 K/mcL (4.50-11.00)
[2019-12-14 06:03] LABS: ALT/SGPT 9 U/l (0-40); AST/SGOT 21 U/l (0-37); Albumin 3.4 gm/dL (3.2-5.2); Albumin/Globulin Ratio 1.5 (1.0-2.3); Alkaline Phosphatase 77 U/L (39-117); Bilirubin,Total 0.9 mg/dL (0.0-1.0); Blood Urea Nitrogen 58 mg/dl (8-23); Calcium 8.8 mg/dl (8.6-10.4); Carbon Dioxide 35 mmol/L (22-30); Globulin 2.2 gm/dL (2.2-3.7); Glomerular Filtration Rate 27; Glucose 93 mg/dL (70-105); Lactate Dehydrogenase 176 U/L (94-250); Phosphorous 3.6 mg/dL (2.7-4.5); Triglycerides 38 mg/dl (<150); Uric Acid 9.3 mg/dL (2.5-8.0)
[2019-12-14 06:10] LABS: Bilirubin,Direct 0.5 mg/dL (0.0-0.3); Chloride 92 mmol/L (96-108)
[2019-12-14] MEDS: LEVOTHYROXINE 100 MCG TABLET PO SCH (06:54)
--- NOTE | 2019-12-14 07:28 | Internal Med Progress Note ---
Medical - PN: Subj Patient information: Note initiated : 12/14/19 at 7:22 am Service Date, if different from initiated Date: [] Patient: Bran Canas a 89 y/o M admitted on 12/12/19 for weight gain, SOB. Chief Complaint: [] Interval history: Mr. Canas is a 89 year old M Who presents the ED with increased shortness of breath and swelling. He was admitted and beginning of November for CHF exacerbation and diuresed quite well. He followed up with cardiology who discontinued the Bumex and Aldactone and started him on torsemide 30 mg daily. The past week he has had increasing swelling. Sounds like over the weekend his torsemide was increased to 30 twice a day per the phone call with the site promotion agent. They obtain some labs and talk to the patient's POA, daughter, and asked her bring him in for diuresis. Also saw barrel repairer her last discharge. He complains of orthopnea. Denies chest pain. Occasional cough. Some wheezing. In the ED he was evaluated and found to have hyponatremia which he does chr onically although was decreased from discharge of last admission. He is got chronic pancytopenia and chronic kidney disease. Started sildenafil earlier this year for pulmonary arterial hypertension. Has chronic hyponatremia and pancytopenia. 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 Chavez Has not been on anticoagulation for chronic atrial fibrillation because pt refuses. Chest x-ray done which showed a right large recurrent right pleural effusion. 12/12 He feels his breathing is improving. No overnight events or new complaints. Diuresing well on the Lasix drip. 12/13 Good urine output overnight. His breathing continues to improve, he is on room air with good oxygenation. No new complaints overnight events. States that he can actually see his hernia on his abdomen now that his edema has improved. Review of Systems: denies headache/fever/chills/nausea/vomiting/chest or abdominal pain/diarrhea. Otherwise see above. - Constitutional Vitals: Vital Signs Temp Pulse Resp BP Pulse Ox 99.2 F H 74 20 125/59 93 12/14/19 07:01 12/14/19 02:00 12/14/19 06:01 12/14/19 07:01 12/14/19 06:01 Period Temp Pulse Resp BP Sys/Terry Pulse Ox Last 24 Hr 96.4 F-99.2 F 67-74 13-22 103-135/54-98 93-100 Intake and Output 12/13/19 12/14/19 12/14/19 21:59 05:59 13:59 Intake Total 490 53 Output Total 850 1525 871 Balance -798 -8153 -755 Weight 95.889 kg Intake & Output: Intake & Output 12/13/19 12/14/19 12/14/19 21:59 05:59 13:59 Intake Total 490 53 Output Total 850 1525 265 Balance -880 -8996 -484 Weight 95.889 kg Intake: IV 250 53 Lasix 250 mg In Sodium Chloride 250 53 0.9% 225 ml @ 10 MG/HR 10 mls/ hr IV Q24H [facility] Rx#:[id number] Oral 240 Output: Urine Catheter Amount 850 9634 284 Other: Meal Dinner Percent of Meal Consumed 75% Feeding Ability Assist with Tray Set Up Urine Appearance Clear Clear Clear Uretheral (Egan) Clear Clear Urine Color Bright Yellow Bright Yellow Pale Blood Tinged Uretheral (Egan) Bright Yellow Bright Yellow Blood Tinged Blood Tinged Urine Odor Normal Uretheral (Egan) Normal Stool Size Moderate Stool Color Brown Stool Consistency Soft Exam: General: Alert, Awake, No acute Distress Eyes/N/T: EOMI, Head/Neck: neck supple, CV: reg with occasional irreg, No murmurs, Pulm: Diminished b/l, no wheezing Abd: soft, nontender, +BS x4 Ext: no clubbing/cyanosis, b/l LE edema 1+ shins and 2+ thighs Neuro: Alert, no focal deficits, moves all extremities, Skin: warm/dry Medical - PN: Obj Da - Labs CBC & Chem 7: 12/14/19 04:52 12/14/19 04:52 Labs: Abnormal Lab Results 12/14/19 12/14/19 12/13/19 04:52 04:52 04:54 WBC 3.1 L RBC 2.69 L Hgb 8.6 L Hct 25.6 L RDW 15.9 H Plt Count 51 L MPV 12.3 H Lymph % (Auto) Eos % (Auto) 8.1 H Lymph # (Auto) 0.54 L PT INR Sodium 131 L Chloride 92 L 88 L Carbon Dioxide 35 H 32 H BUN 58 H 60 H Creatinine 2.1 H 2.1 H Glucose Uric Acid 9.3 H 9.2 H Direct Bilirubin 0.5 H 0.4 H NT-Pro-B Natriuret Pep Total Protein 5.6 L 5.7 L [facility] 12/13/19 12/13/19 12/12/19 04:54 04:54 23:54 WBC 3.5 L RBC 2.70 L Hgb 8.6 L Hct 25.6 L RDW 15.9 H Plt Count 51 L MPV 13.2 H Lymph % (Auto) 12.8 L Eos % (Auto) Lymph # (Auto) 0.45 L PT 18.5 H INR 1.5 H Sodium 131 L Chloride 90 L Carbon Dioxide 33 H BUN 60 H Creatinine 2.3 H Glucose 116 H Uric Acid Direct Bilirubin NT-Pro-B Natriuret Pep Total Protein [facility] 12/12/19 12/12/19 12/12/19 12:09 12:09 12:09 WBC 2.8 L RBC 2.97 L Hgb 9.2 L Hct 28.4 L RDW 15.9 H Plt Count 52 L MPV 12.8 H Lymph % (Auto) 15.1 L Eos % (Auto) Lymph # (Auto) 0.42 L PT INR Sodium 125 L Chloride 85 L Carbon Dioxide 32 H BUN 56 H Creatinine 2.2 H Glucose Uric Acid Direct Bilirubin NT-Pro-B Natriuret Pep 40363.0 H Total Protein TSH 10.19 H Meds: Medications Acetaminophen (Tylenol) 650 mg PO Q6HP PRN PRN Reason: PAIN/FEVER > 101 Last Admin: 12/13/19 08:32 Dose: 650 mg Documented by: Albuterol/Ipratropium (Duoneb) 3 ml NEB Q4HP PRN PRN Reason: Shortness Of Breath Allopurinol (Zyloprim) 100 mg PO DAILY [facility] Last Admin: 12/13/19 08:31 Dose: 100 mg Documented by: Docusate Sodium (Colace) 100 mg PO BID [facility] Last Admin: 12/13/19 20:11 Dose: 100 mg Documented by: Doxazosin Mesylate (Cardura) 8 mg PO DAILY [facility] Last Admin: 12/13/19 08:38 Dose: 8 mg Documented by: Enoxaparin Sodium (Lovenox) 30 mg SQ DAILY [facility] Last Admin: 12/13/19 08:31 Dose: 30 mg Documented by: Famotidine (Pepcid) 20 mg PO HS [facility] Last Admin: 12/13/19 20:11 Dose: 20 mg Documented by: Finasteride (Proscar) 5 mg PO QDAY [facility] Last Admin: 12/13/19 08:38 Dose: 5 mg Documented by: Gabapentin (Neurontin) 300 mg PO TID [facility] Last Admin: 12/13/19 20:11 Dose: 300 mg Documented by: Potassium Chloride 40 meq/ (Dextrose) 520 mls @ 130 mls/hr IV UD PRN PRN Reason: Potassium < 3 Magnesium Sulfate (Magnesium Sulfate) 2 gm in 50 mls @ 50 mls/hr IV UD PRN PRN Reason: Magnesium </= 1.6 Furosemide 250 mg/ Sodium (Chloride) 250 mls @ 10 mls/hr IV Q24H [facility]; Protocol Last Titration: 12/14/19 02:00 Dose: 0 mg/hr, 0 mls/hr Documented by: Lactulose (Cephulac) 20 gm PO DAILYP PRN PRN Reason: Constipation [facility]othy[facility]ine [facility]) [facility] Last Admin: 12/14/19 06:54 Dose: 100 mcg Documented by: Melatonin (Melatonin 3mg Tablet) 3 mg PO [facility] Last Admin: 12/13/19 20:11 Dose: 3 mg Documented by: Metoprolol Succinate (Toprol Xl) 12.5 mg PO DAILY [facility] Ondansetron HCl (Zofran) 4 mg IV Q4HP PRN PRN Reason: Nausea And Vomiting Sildenafil Citrate [ (Revatio] 20 Mg) 1 dose PO TID [facility] Last Admin: 12/13/19 20:11 Dose: 1 dose Documented by: Polyethylene Glycol (Miralax) 17 gm PO DAILYP PRN PRN Reason: Constipation Potassium Chloride (Kdur) 40 meq PO UD PRN PRN Reason: Potssium is 3-3.5 Potassium Chloride (Kdur) 40 meq PO UD PRN PRN Reason: Potassium < 3 Potassium Chloride (Kdur) 10 meq PO QAMCC [facility] Last Admin: 12/13/19 08:31 Dose: 10 meq Documented by: Senna (Senokot) 2 tab PO DAILYP PRN PRN Reason: Constipation Simvastatin (Zocor) 10 mg PO DAILY [facility] Last Admin: 12/13/19 08:31 Dose: 10 mg Documented by: Sodium Chloride (Saline Flush) 10 ml IV Q8 [facility] Last Admin: 12/14/19 05:16 Dose: 10 ml Documented by: Spironolactone (Aldactone) 50 mg PO QAM [facility] Last Admin: 12/13/19 08:32 Dose: 50 mg Documented by: Medical - PN: A/P - Time Spent With Patient Total time spent is greater than 50% in coordination of care (as documented) at patient's floor/unit and/or counseling patient: - Narrative A/P Narrative: A: *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 But also hypervolemic hyponatremia -improved with diuresis *CKD IIIb: follows with dr chavez *Anemia, chronic: *COPD (no home O2) *Hypothyroidism: *Neuropathy: *GERD: *BPH: *h/o GI bleed from Diehector lesion @ [facility] 06/2019 s/p clipping: P: -IV lasix gtt, aldactone, hold home torsemide for now -monitor I's/O's, weights, UOP -monitor sodium and other electrolytes -compression wraps, elevate legs -restart BB likely in AM -pt/ot -f/u cardiology outpt. He dose have appt this Wednesday @10:45am -f/u with GI for cirrhosis -ppx: SCD/ lovenox (hold if PLT<50k)/home ppi DNR Medical - PN: Qual - VTE Deep Vein Thrombosis/Pulmonary Embolism Present on Admission: No
[2019-12-14] MEDS ORDERED: METOPROLOL SUCCINATE 25 MG TAB.XL.24H PO SCH (09:00)
[2019-12-14] MEDS: SPIRONOLACTONE 25 MG TABLET PO SCH (09:00)
[2019-12-14] MEDS: DOXAZOSIN 4 MG TABLET PO SCH (09:00)
[2019-12-14] MEDS: SIMVASTATIN 10 MG TABLET PO SCH (09:01)
[2019-12-14] MEDS: POTASSIUM CHLORIDE 10 MEQ TABLET PO SCH (09:01)
[2019-12-14] MEDS: ALLOPURINOL 100 MG TABLET PO SCH (09:01)
[2019-12-14] MEDS: SILDENAFIL CITRATE 20 MG PO SCH ×3 (09:02→20:05)
[2019-12-14] MEDS: FINASTERIDE 5 MG TABLET PO SCH (09:02)
[2019-12-14] MEDS: ENOXAPARIN 30 MG/0.3 ML SYRINGE SQ SCH (09:02)
[2019-12-14] MEDS: GABAPENTIN 300 MG CAPSULE PO SCH ×3 (09:02→20:05)
[2019-12-14] MEDS: DOCUSATE SODIUM 100 MG CAPSULE PO SCH ×2 (09:02→20:05)
--- NOTE | 2019-12-14 09:50 | Discharge Summary ---
Medical - DS: Prov Patient information: Note initiated : 12/14/19 at 9:48 am Service Date, if different from initiated Date: [] Patient: Bran Canas 89 y/o M admitted on 12/12/19 for weight gain, SOB. Chief Complaint: [] Date of admission: 12/12/19 17:43 Discharge date: 12/15/19 Primary care physician: Kali Choudhury Consults: 12/12/19 14:09 Consult to Physician [CONS] Stat Comment: Consulting Provider: Ryan Gallagher Reason For Exam: Physician to Consult Medical - DS: Meds - Discharge Medications Active and Home Medications: Home Medications Allopurinol [Zyloprim] 100 mg PO DAILY 10/25/15 [History Confirmed 12/13/19 Last Taken 12/12/19 08:00] levothyroxine 88 mcg tablet 88 mcg PO QAM tab 12/14/17 [History Confirmed 12/13/19 Last Taken 12/12/19 08:00] ipratropium 0.5 mg-albuterol 3 mg (2.5 mg base)/3 mL nebulization soln 3 ml INHALATION QID #180 ml 12/15/17 [Rx Confirmed 12/13/19 Last Taken 12/12/19 08:00] omeprazole 20 mg capsule,delayed release 40 mg PO BIDCC cap 12/15/17 [History Confirmed 12/13/19 Last Taken 12/12/19 08:00] ascorbic acid (vitamin C) 1,000 mg tablet 1 g PO QDAY tab 06/20/18 [History Confirmed 12/13/19 Last Taken 12/12/19 08:00] doxazosin 4 mg tablet 8 mg PO DAILY #90 tab 09/22/18 [Rx Confirmed 12/13/19 Last Taken 12/12/19 08:00] finasteride 5 mg tablet 5 mg PO QDAY #90 tab 09/22/18 [Rx Confirmed 12/13/19 L ast Taken 12/12/19 08:00] cranberry 500 mg capsule 500 mg PO QDAY cap 11/29/18 [History Confirmed 12/13/19 Last Taken 12/12/19 08:00] ferrous sulfate 325 mg (65 mg iron) tablet 325 mg PO QDAY tab 02/08/19 [History Confirmed 12/13/19 Last Taken 12/12/19 08:00] Metoprolol Succinate [Toprol Xl] 12.5 mg PO DAILY #30 tab.xl.24h 04/17/19 [Rx Confirmed 12/13/19 Last Taken 12/12/19 08:00] acetaminophen 500 mg capsule 500 mg PO Q6H PRN 05/29/19 [History Confirmed 12/12/19 Last Taken Unknown] loratadine 10 mg tablet 10 mg PO QDAY 05/29/19 [History Confirmed 12/13/19 Last Taken 12/12/19 08:00] melatonin 1 mg tablet 5 mg PO HS tab 05/29/19 [History Confirmed 12/13/19 Last Taken 12/11/19 21:00] gabapentin 300 mg capsule 300 mg PO TID cap 10/26/19 [History Confirmed 12/13/19 Last Taken 12/12/19 19:25] Sildenafil Citrate [Revatio] 20 mg PO TID 11/07/19 [History Confirmed 12/13/19 Last Taken 12/12/19 21:00] Fluticasone Propionate [Flonase] 2 spray NS DAILY PRN 11/08/19 [History Confirmed 12/13/19 Last Taken 12/12/19 08:00] pravastatin 20 mg tablet 20 mg PO DAILY tab 11/23/19 [History Confirmed 12/13/19 Last Taken 12/12/19 08:00] Magnesium Oxide [Magnesium] 400 mg PO DAILY 12/12/19 [History Confirmed 12/13/19 Last Taken 12/12/19 08:00] Potassium Chloride [Kdur] 10 meq PO [facility] 12/12/19 [History Confirmed 12/13/19 Last Taken 12/12/19 08:00] Torsemide [Demadex] 30 mg PO DAILY 12/12/19 [History Confirmed 12/13/19 Last Taken 12/12/19 08:00] Psyllium Husk [Metamucil] 6 gm PO HS 12/13/19 [History Confirmed 12/13/19 Last Taken 12/11/19 21:00] Medical - DS: Hosp Hospital Course: Mr. Canas is a 89 year old M Who presents the ED with increased shortness of breath and swelling. He was admitted and beginning of November for CHF exacerbation and diuresed quite well. He followed up with cardiology who discontinued the Bumex and Aldactone and started him on torsemide 30 mg daily. The past week he has had increasing swelling. Sounds like over the weekend his torsemide was increased to 30 twice a day per the phone call with the track grinder operator. They obtain some labs and talk to the patient's POA, daughter, and asked her bring him in for diuresis. Also saw manager night her last discharge. He complains of orthopnea. Denies chest pain. Occasional cough. Some wheezing. In the ED he was evaluated and found to have hyponatremia which he does chronically although was decreased from discharge of last admission. He is got chronic pancytopenia and chronic kidney disease. Started sildenafil earlier this year for pulmonary arterial hypertension. Has chronic hyponatremia and pancytopenia. 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 Chavez Has not been on anticoagulation for chronic atrial fibrillation because pt refuses. Chest x-ray done which showed a right large recurrent right pleural effusion. 12/12 He feels his breathing is improving. No overnight events or new complaints. Diuresing well on the Lasix drip. 12/13 Good urine output overnight. His breathing continues to improve, he is on room air with good oxygenation. No new complaints overnight events. States that he can actually see his hernia on his abdomen now that his edema has improved. 12/14 Doing well. Feeling better. Great response to diuresis. Has a scheduled appoint with cardiology this morning and will discharge and transport over to his appointment. Will need adjustment per cardiology regarding his diuretics. Given age and comorbidities he is high risk for readmission. 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 But also hypervolemic hyponatremia -improved with diuresis *CKD IIIb: follows with dr chavez *Anemia, chronic: *COPD (no home O2) *Hypothyroidism: *Neuropathy: *GERD: *BPH: *h/o GI bleed Discharge diagnosis: Acute on chronic systolic diastolic heart failure and right heart failure Secondary discharge diagnosis: Pleural effusion pulmonary artery hypertension atrial fibrillation chronic pancytopenia cirrhosis hyponatremia, chronic kidney disease anemia COPD hypothyroidism neuropathy GERD - Time Spent with Patient Total time spent providing and/or coordinating discharge services: Greater than 30 minutes Medical - DS: Exam - Constitutional Vitals: Vital Signs Temp Pulse Resp BP Pulse Ox 12/14/19 08:01 98.8 F 20 141/90 94 12/14/19 07:01 99.2 F H 125/59 12/14/19 06:01 99.1 F H 20 115/64 93 12/14/19 05:01 99.0 F 22 120/61 98 12/14/19 04:00 98.9 F 20 118/55 99 12/14/19 03:00 98.7 F 18 118/58 98 12/14/19 02:00 98.3 F 74 18 106/54 100 12/14/19 01:37 100 12/14/19 01:00 98.0 F 115/55 100 12/14/19 00:01 97.8 F 18 126/69 100 12/13/19 23:01 97.6 F 118/68 12/13/19 22:01 97.4 F 132/77 100 12/13/19 21:01 97.1 F 115/66 99 12/13/19 20:01 97.2 F 20 132/80 100 12/13/19 19:42 99 12/13/19 19:01 97.0 F 110/88 12/13/19 18:03 97.0 F 19 117/77 98 12/13/19 17:11 96.4 F L 12/13/19 17:01 96.5 F L 113/70 12/13/19 16:01 96.8 F L 17 103/73 95 12/13/19 15:01 96.8 F L 19 118/61 95 12/13/19 14:43 96.8 F L 12/13/19 14:01 97.1 F 117/60 12/13/19 14:00 67 19 98 12/13/19 13:04 97.3 F 12/13/19 13:01 97.2 F 119/54 12/13/19 12:24 97.6 F 12/13/19 12:01 97.4 F 16 130/65 98 12/13/19 11:01 98.1 F 133/98 12/13/19 10:00 98.3 F 20 135/72 95 Intake and Output 12/13/19 12/14/19 12/14/19 21:59 05:59 13:59 Intake Total 490 53 8 Output Total 850 1525 550 Balance -746 -6660 -437 Intake: IV 250 53 8 Lasix 250 mg In Sodium Chloride 250 53 8 0.9% 225 ml @ 10 MG/HR 10 mls/ hr IV Q24H [facility] Rx#:[id number] Oral 240 Output: Urine Catheter Amount 850 1525 550 Other: Meal Dinner Percent of Meal Consumed 75% Feeding Ability Assist with Tray Set Up Urine Appearance Clear Clear Clear Uretheral (Egan) Clear Clear Clear Urine Color Bright Yellow Bright Yellow Light Stefanie Blood Tinged Uretheral (Egan) Bright Yellow Bright Yellow Pale Blood Tinged Blood Tinged Urine Odor Normal Uretheral (Egan) Normal Stool Size Moderate Stool Color Brown Stool Consistency Soft Weight 95.889 kg Medical - DS: Data Labs on day of discharge: Labs from last 24 hours 12/14/19 12/14/19 04:52 04:52 WBC 3.1 L RBC 2.69 L Hgb 8.6 L Hct 25.6 L MCV 95.2 MCH 32.0 MCHC 33.6 RDW 15.9 H Plt Count 51 L MPV 12.3 H Gran % 65.1 Lymph % (Auto) 17.4 [place] % (Auto) 8.1 Eos % (Auto) 8.1 H Baso % (Auto) 1.3 Gran # 2.02 Lymph # (Auto) 0.54 L [place] # (Auto) 0.25 Eos # (Auto) 0.25 Baso # (Auto) 0.04 Sodium 135 Potassium 4.2 Chloride 92 L Carbon Dioxide 35 H Anion Gap 8.0 BUN 58 H Creatinine 2.1 H GFR Calculation 27 Glucose 93 Uric Acid 9.3 H Calcium 8.8 Phosphorus 3.6 Magnesium 1.9 Total Bilirubin 0.9 Direct Bilirubin 0.5 H GGT 45 AST 21 ALT 9 Alkaline Phosphatase 77 Lactate Dehydrogenase 176 Total Protein 5.6 L Albumin 3.4 Globulin 2.2 Albumin/Globulin Ratio 1.5 Triglycerides 38 Medical - DS: A/P - Patient/Caregiver Discharge Instructions Activity: as per physical therapy Diet: Cardiac Additional Instructions: Referral to see traffic enumerator in 5 to 10 days for cirrhosis-- A referral has been sent to Dr. Gonzalez Follow-up with track grinder operator as scheduled today - Follow up Plan Follow up with: Kelechi Tiwari MD [Physician] - 12/15/19 9:45 am (This appointment is with Flor Egan) Andreas Gonzalez MD [Physician] - (A referral has been sent, they will contact you at home to schedule an appointment.) Kali Choudhury MD [Primary Care Provider] - 12/18/19 11:00 am Disposition: Xfer SNF Care Plan Goals: This discharge packet is provided to you to help keep you informed about your care. We want to ensure you get everything you need when you go home. You will also be receiving a call from us in a few days to follow up with you and see how you are doing since your discharge. This gives us a chance to listen to any concerns you maybe experiencing since you were discharged or any additional needs you may have, as well as providing us feedback on your care experience. We strive to always provide excellent care and thank you for your feedback and for choosing [facility]. Prognosis: Undetermined Rehab Potential: Fair I certify that the patient requires SNF services: Yes Overall status at discharge: patient is progressing back to baseline Medical - DS: Qual - VTE Deep Vein Thrombosis/Pulmonary Embolism Present on Admission: No
[2019-12-14] MEDS: MELATONIN 3 MG TABLET PO SCH (20:08)
[2019-12-14] MEDS: FAMOTIDINE 20 MG TABLET PO SCH (20:08)
[2019-12-14] MEDS ORDERED: FUROSEMIDE 40 MG/4 ML VIAL IV ONE ×2 (22:15→22:53)
[2019-12-14] MEDS ORDERED: ALBUMIN HUMAN 12.5 GM/50 ML BAG IV ONE (22:16)
[2019-12-14] MEDS ORDERED: ALBUMIN HUMAN 50 ML IV ONE (22:53)
[2019-12-15] MEDS: 0.9 % SODIUM CHLORIDE 10 ML SYRINGE IV SCH (05:39)
[2019-12-15] MEDS ORDERED: TORSEMIDE 10 MG TABLET PO ONE (07:29)
[2019-12-15] MEDS ORDERED: METOLAZONE 2.5 MG TABLET PO ONE (07:29)
[2019-12-15] MEDS: LEVOTHYROXINE 100 MCG TABLET PO SCH (08:04)
[2019-12-15] MEDS: POTASSIUM CHLORIDE 10 MEQ TABLET PO SCH (08:05)
[2019-12-15] MEDS: DOCUSATE SODIUM 100 MG CAPSULE PO SCH (08:30)
[2019-12-15] MEDS: DOXAZOSIN 4 MG TABLET PO SCH (08:30)
[2019-12-15] MEDS: GABAPENTIN 300 MG CAPSULE PO SCH (08:31)
[2019-12-15] MEDS: ALLOPURINOL 100 MG TABLET PO SCH (08:31)
[2019-12-15] MEDS: FINASTERIDE 5 MG TABLET PO SCH (08:31)
[2019-12-15] MEDS: SILDENAFIL CITRATE 20 MG PO SCH (08:31)
[2019-12-15] MEDS: SIMVASTATIN 10 MG TABLET PO SCH (08:31)
[2019-12-15] MEDS: ENOXAPARIN 30 MG/0.3 ML SYRINGE SQ SCH (08:31)
[2019-12-15] MEDS ORDERED: METOPROLOL SUCCINATE 25 MG TAB.XL.24H PO SCH (09:00)
== END 2019-12-15 09:30 | disposition home health service (06) | DRG 291 ==
LOC: ED 11:41 → ICU 17:43
PROVIDERS: ADMIT Internal Medicine; ATTEND Internal Medicine

== ENCOUNTER 2020-02-21 09:22 | Observation (INO) ==
[2020-02-21 10:19] LABS: Basophils # (Auto) 0.02 K/mcL (0.00-0.30); Basophils % (Auto) 0.3 % (0.0-2.0); Eosinophils # (Auto) 0.06 K/mcL (0.00-0.70); Granulocytes % (Auto) 89.2 % (38.0-78.0); Hematocrit 25.8 % (40.1-51.0); Hemoglobin 8.4 g/dL (13.7-17.5); Lymphocytes # (Auto) 0.26 K/mcL (1.50-4.80); Lymphocytes % (Auto) 4.2 % (15.5-49.0); Mean Cell Volume 97.7 fL (80.0-100.0); Mean Corpuscular HGB Conc 32.6 g/dL (31.0-36.0); Mean Platelet Volume 12.4 fL (7.4-10.4); Monocytes # (Auto) 0.33 K/mcL (0.10-0.90); Monocytes % (Auto) 5.3 % (1.0-12.0); RBC 2.64 M/mcL (4.63-6.08); Red Cell Distribution Width 17.2 % (11.5-14.5); WBC 6.2 K/mcL (4.50-11.00)
--- NOTE | 2020-02-21 10:21 | XRay Report ---
CLINICAL INFORMATION: SOB, back pain COMPARISON: 02/16/2020 FINDINGS: Marked cardiomegaly is unchanged. Mediastinum and pulmonary vessels are normal. Right pleural effusion has reaccumulated and now massive resulting in complete collapse of the right lung. A 20% right pneumothorax noted. Minor atelectasis seen in the left base. IMPRESSION: Massive right pleural effusion with a right apical pneumothorax resulting in complete collapse of the right lung. Suggest general surgery referral for chest tube placement Interpreted and Authenticated by: Korey Wallace 02/21/20
[2020-02-21 10:25] LABS: Platelet Count 42 K/mcL (140-440)
--- NOTE | 2020-02-21 10:35 | Emergency Department Note ---
General Adult HPI - General Chief complaint: Weakness Stated complaint: WEAKNESS Time Seen by Provider: 02/21/20 09:45 Source: patient Mode of arrival: ambulatory Limitations: no limitations - History of Present Illness HPI Narrative: This 89-year-old gentleman comes to the emergency room after his daughter, Krystle Canas, encouraged him to come, primarily due to multiple smaller things and then falling or sliding out of bed this morning and complaining of back pain. He has been a little bit tired and sleepy since his thoracentesis and pneumothorax from last week 5 and 6 days ago. He had to be helped to get to the bathroom which is unusual. He seems a little disoriented. He needed a little extra oxygen. Blood pressure seemed a little low. He seemed to have a few tremors. He lives in his own home and she lives there is a primary care helper/caregiver. She has medical power of attorney law clerk. She confirms his DNR status with comfort and limited interventions. He has a significant history of CHF, COPD, pleural effusions etc. She reports that with his oxygen at 88% she had to give him 4 L to get it higher than 90%. It appears that he had thoracentesis on the . She states this is his eighth or ninth thoracentesis. He has never had fluid pulled off of his abdomen. He developed a pneumothorax after the last 1 and was kept overnight it appears and discharged the next day with stability noted. He does have a history of a GI bleed with a vein being clipped off but she is not sure if this was a varicosity or AVM. She states that he does bleed easily and his blood is "thin". He is only on aspirin even though he does have chronic A. fib. REVIEW OF SYSTEMS: Denies chest pain Some short of breath Pain in the low back area. Has chronic pink darkening of his lower extremities and chronic edema. Is on multiple diuretics. - Related Data Home Medications Medication Instructions Recorded Confirmed levothyroxine 88 mcg tablet 88 mcg PO QAM tab 12/14/17 02/21/20 omeprazole 20 mg capsule,delayed 40 mg PO BIDCC cap 12/15/17 02/21/20 release ascorbic acid (vitamin C) 1,000 mg 1 g PO QDAY tab 06/20/18 02/21/20 tablet cranberry 500 mg capsule 500 mg PO QDAY cap 11/29/18 02/21/20 ferrous sulfate 325 mg (65 mg 325 mg PO QDAY tab 02/08/19 02/21/20 iron) tablet acetaminophen 500 mg capsule 500 mg PO Q6H PRN 05/29/19 02/21/20 loratadine 10 mg tablet 10 mg PO QDAY 05/29/19 02/21/20 melatonin 1 mg tablet 5 mg PO HS tab 05/29/19 02/21/20 gabapentin 300 mg capsule 300 mg PO TID cap 10/26/19 02/21/20 Sildenafil Citrate [Revatio] 20 mg PO TID 11/07/19 02/21/20 Fluticasone Propionate [Flonase] 2 spray NS DAILY PRN 11/08/19 02/21/20 Magnesium Oxide [Magnesium] 400 mg PO BID 12/12/19 02/21/20 allopurinol 100 mg tablet 200 mg PO DAILY tab 01/09/20 02/21/20 bumetanide 2 mg tablet 4 mg PO BID tab 01/09/20 02/21/20 ipratropium 0.5 mg-albuterol 3 mg 3 ml INHALATION BID ml 01/09/20 02/21/20 (2.5 mg base)/3 mL nebulization soln metolazone 2.5 mg tablet 2.5 mg PO QDAY PRN tab 01/09/20 02/21/20 multivitamin,[id number] 1 tab PO QDAY 01/09/20 02/21/20 pravastatin 20 mg tablet 40 mg PO DAILY tab 01/09/20 02/21/20 spironolactone 25 mg tablet 12.5 mg PO QDAY tab 01/09/20 02/21/20 Previous Rx's Medication Instructions Recorded doxazosin 4 mg tablet 8 mg PO DAILY #90 tab 09/22/18 finasteride 5 mg tablet 5 mg PO QDAY #90 tab 09/22/18 Metoprolol Succinate [Toprol Xl] 12.5 mg PO DAILY #30 tab.[id number] 04/17/19 Allergies Allergy/AdvReac Type Severity Reaction Status Date / Time Amoxicillin AdvReac Mild Nausea Verified 01/25/20 09:00 sulfamethoxazole AdvReac Mild Nausea Verified 01/25/20 09:00 [From Bactrim] trimethoprim [From Bactrim] AdvReac Mild Nausea Verified 01/25/20 09:00 Past Medical History - Past Medical History [facility] Narrative: Medical History (Last Updated 02/21/20 @ 11:02 by Heron Carpio DO) manager terminal (current) use of aspirin (Chronic) CHF (congestive heart failure) (Chronic) Diastolic dysfunction (Chronic) Pulmonary hypertension (Chronic) Atrial fibrillation (Chronic) Chronic obstructive pulmonary disease (Chronic) Left axis deviation (Chronic) LVH (left ventricular hypertrophy) (Chronic) Pleural effusion (Chronic) Portal hypertension (Chronic) Anasarca (Resolved) History of cirrhosis of liver (Chronic) History of GI bleed (Resolved) Localized edema due to fluid overload (Chronic) Pancytopenia (Chronic) Chronic hyponatremia (Chronic) Chronic kidney disease, stage III (moderate) (Chronic) SIADH (syndrome of inappropriate ADH production) (Chronic) Pleural effusion due to CHF (congestive heart failure) (Chronic) Cardiomegaly (Chronic) Hypertension (Chronic) Anemia (Chronic) Pure hypercholesterolemia (Chronic) LBBB (left bundle branch block) (Chronic) Neuropathy, idiopathic (Chronic) Hypothyroidism (Chronic) Gout (Chronic) Exertional dyspnea (Chronic) Peripheral edema (Chronic) Abnormal PFTs (pulmonary function tests) (Chronic) Seasonal allergies (Chronic) Vitamin D deficiency (Chronic) Primary generalized (osteo)arthritis (Chronic) Chronic musculoskeletal pain (Chronic) Hip fracture, right (Chronic) Hyponatremia with decreased serum osmolality (Resolved) Shortness of breath (Resolved) Onychomycosis (Inactive) Past Surgical History (Last Reviewed 01/25/20 @ 09:04 by Lin Darnell CMA) H/O hernia repair (Chronic) History of bilateral knee replacement (Chronic) History of colonoscopy (Chronic 10/25/15) History of knee replacement (Chronic) History of tonsillectomy (Chronic) History of total right hip arthroplasty (Chronic) Hx of shoulder surgery (Chronic) Family History (Last Reviewed 01/25/20 @ 09:04 by Lin Darnell CMA) Brother Cardiac disease Diabetes Mother Diabetes Medical history: Denies: cancer, CVA, DVT, DM, myocardial infarction, pulmonary embolus, TIA Psychiatric history: Denies: anxiety, depression - Social History smoking status: Former smoker Alcohol use: Reports: None (Did drink more heavily in younger years quit in 2018 approximately.) Drug use: Reports: none. Denies: marijuana Physical Exam Limitations: no limitations General appearance: alert, in no apparent distress, nontoxic, sleepy Head: atraumatic, normocephalic Eye: Present: EOMI ENT: Present: mucous membranes dry Neck: Present: trachea midline, other (Small soft superficial subcutaneous nodule left of the thyroid cartilage. It is nontender, nonerythematous and well rounded, approximately 8 mm in diameter.). Absent: lymphadenopathy, thyromegaly Chest: Present: symmetric chest wall rise Respiratory: Present: accessory muscle use (Abdominal breathing muscles noted that are mild.), decreased breath sounds (Bilateral particularly on the right.). Absent: respiratory distress, wheezes, stridor, prolonged expiratory phase Cardiovascular: Present: irregular rhythm. Absent: systolic murmur, diastolic murmur Abdominal: Present: soft, distention (Seems moderately distended. There is a right-sided abdominal wall hernia that is several inches in diameter and mildly irregular but rounded.). Absent: tenderness, guarding, rebound, rigidity, organomegaly, mass Extremities: Present: pretibial edema (Extending two thirds of the way up to the knees that is 1-2/4 pitting.), other (There is [id number] bronzing of the anterior mid to lower wolff areas. This is bilateral. It is not but only slightly warm.) Back: Present: L-S tenderness (Subjective.). Absent: CVA tenderness (R), CVA tenderness (L), spinous process tenderness Neurological: Present: alert, oriented X3 Psychiatric: Present: serious, poor eye contact (Slight or mild), polite, pleasant. Absent: agitated, anxious Skin: Present: warm, dry Course Vital Signs Temperature 97.7 F 02/21/20 09:23 Pulse Rate 78 02/21/20 09:23 Respiratory Rate 20 02/21/20 09:23 Blood Pressure 102/57 02/21/20 09:23 Pulse Oximetry (%) 87 L 02/21/20 09:23 Temperature 97.7 F 02/21/20 10:52 Pulse Rate 61 02/21/20 13:14 Respiratory Rate 13 02/21/20 13:14 Blood Pressure 88/51 02/21/20 13:14 Pulse Oximetry (%) 100 02/21/20 13:14 Medical Decision Making - [facility] Narrative Medical decision making narrative: 89-year-old with a multitude of symptoms including seeming to have shortness of breath, more oxygen requirement, sleepy and tired, decreased appetite, weakness, disorientation, on a background of CHF, recurrent pleural effusions, etc. He is DNR but with some Comfort measures to be employed. He has a history of some chronic renal failure as well as pancytopenia and recurrent pleural effusions. "Slipped out of bed" with some low back pain this morning and so we will be doing imaging. 10:40 AM - chest x-ray demonstrates an increase in size in the pneumothorax and a large pleural effusion. Radiology recommends a larger chest tube. 10:45 AM - approximately EKG demonstrates LVH, left axis deviation, probable bundle branch block, and atrial fibrillation. Is similar to previous EKGs. 10:53 AM - consult requested with surgeon. He is not available for an hour and a half due to being in a procedure. Patient is stable in the meantime saturating on 1 L at 92+ percent. I spoke with patient's daughter a few minutes earlier and she is agreeable for the recommended chest tube. 10:55 AM - troponin comes back 0.25. Most recent seven 0.15, 0.19, 0.09, 0.11 Again is anemic with a hemoglobin of 8.4. Recently 8.6-9.1. Platelets also again low at 42. Previously 47 and has been low for a long time but this is the lowest Creatinine is significantly l elevated at 2.9. Most recent 1.9-2.1. 11:15 AM - I spoke with general surgeon, Tye Burks, who points out that with t his history and severity of CHF/pleural effusion recurrent symptoms, that it is unlikely that he will be able to get the chest tube to come out because it will keep draining significant amount of fluid and it will just reaccumulate. He recommend speaking with the hospitalist. He is willing to put it and if that is what family desires. 11:56 AM - I spoke with hospitalist, Dr. Caruso, who points out that with the 0.25 troponin he would want to have a lag screwer on board and participating if they want to be that aggressive. If they want to be interventional and tried to help his circumstances then it would require that transfer. If they do not want this aggressive measure or degree, he is willing. 12:11 PM - spoke with patient's daughter, Krystle, who indicates that he has been seeing Flor at [facility], and has had work-up that has included echocardiograms, stress testing and that both sides of his heart are deteriorating, valves are leaking, etc. No heart cath that she is aware of. 1216 approximately - I spoke with Lfor who reports that she, herself, has talked with the patient Bran, Dr. Choudhury, and patient's daughter Krystle, with recommendations for palliative care and/or hospice because of the limited options. He is not a candidate for aggressive measures including heart cath, surgical interventions. Medical management is now maximized as additional diuresis will affect worsening kidney function and possibly contraindicated due to blood pressures. Patient is also seen Dr. Quintanilla. The elevated troponin could be simply the demand ischemia and/or volume overload/renal failure and does not change this. He has pulmonary hypertension etc. At this point she is again recommending hospice. 12:24 PM - I spoke with Dr. Caruso, hospitalist, and with Dr. Wallace, radiologist, with patient also demonstrating moderate ascites. A smaller chest tube such as a pigtail would not be indicated for the amount of fluid that he has and would require regular management by a nurse and would be a risk factor for infection is not recommended. The larger bore chest tube would be the only answer. 12:41 PM - I spoke with Krystle again, and she reports that patient's resistance to hospice in the past was he still had hope and did not want to give up in felt like fighting. Since then he has actually gotten worse. She reports that she has spoken with the nursing staff and it would be the same home health nurse that she is currently having come in which is Justino from [facility] home health and hospice. I discussed with her that a chest tube would help remove the fluid but that the fluid would reaccumulate fairly quickly and no and his time would be limited if we stopped doing this and we cannot keep doing this. Therefore his life expectancy is relatively short, i.e., probably at least less than 3 weeks, and if we put the chest tube in at least several days of those would be quite uncomfortable because the chest tubes are commonly quite uncomfortable. She asked for an opportunity to speak with her sister before making a decision. 12:58 PM - I again spoke with Krystle, who based on the above would like to go ahead with comfort care and hospice. No chest tube is desired at this point. 1:05 PM - I spoke with Marlen, social media marketing manager, who will contact patient in hospice. 1:15 PM - home health is not able to set up the hospice for this afternoon until tomorrow and arrangements can be made for tomorrow. I will have or request hospitalist to admit patient for comfort measures overnight until this arrangement is completed. - Lab Data Result diagrams: 02/21/20 09:39 02/21/20 09:39 Lab Results 02/21/20 02/21/20 02/21/20 Range/Units 09:39 09:39 09:39 WBC 6.2 (4.50-11.00) K/mcL RBC 2.64 L (4.63-6.08) M/mcL Hgb 8.4 L (13.7-17.5) g/dL Hct 25.8 L (40.1-51.0) % MCV 97.7 (80.0-100.0) fL MCH 31.8 (26.0-34.0) pg MCHC 32.6 (31.0-36.0) g/dL RDW 17.2 H (11.5-14.5) % Plt Count 42 L* (140-440) K/mcL MPV 12.4 H (7.4-10.4) fL Gran % 89.2 H (38.0-78.0) % Lymph % (Auto) 4.2 L (15.5-49.0) % Collin % (Auto) 5.3 (1.0-12.0) % Eos % (Auto) 1.0 (0.0-7.0) % Baso % (Auto) 0.3 (0.0-2.0) % Gran # 5.57 (1.80-8.00) K/mcL Lymph # (Auto) 0.26 L (1.50-4.80) K/mcL Collin # (Auto) 0.33 (0.10-0.90) K/mcL Eos # (Auto) 0.06 (0.00-0.70) K/mcL Baso # (Auto) 0.02 (0.00-0.30) K/mcL VBG Lactic Acid 1.0 (0.5-2.0) mmol/L Sodium 137 (133-145) mmol/L Potassium 4.7 (3.3-5.1) mmol/L Chloride 92 L (96-108) mmol/L Carbon Dioxide 32 H (22-30) mmol/L Anion Gap 13.0 (8-16) BUN 72 H (8-23) mg/dl Creatinine 2.9 H (0.7-1.2) mg/dl GFR Calculation 19 Glucose 120 H (70-105) mg/dL Calcium 9.1 (8.6-10.4) mg/dl Total Bilirubin 1.2 H (0.0-1.0) mg/dL AST 23 (0-37) U/l ALT 10 (0-40) U/l Alkaline Phosphatase 77 (39-117) U/L Troponin T (0-0.03) ng/ml NT-Pro-B Natriuret Pep 15865.0 H (0-450) pg/ml Total Protein 5.9 (5.9-8.4) gm/dL Albumin 3.5 (3.2-5.2) gm/dL Globulin 2.4 (2.2-3.7) gm/dL Albumin/Globulin Ratio 1.5 (1.0-2.3) Procalcitonin (<0.10) ng/mL 02/21/20 02/21/20 Range/Units 09:40 09:40 WBC (4.50-11.00) K/mcL RBC (4.63-6.08) M/mcL Hgb (13.7-17.5) g/dL Hct (40.1-51.0) % MCV (80.0-100.0) fL MCH (26.0-34.0) pg MCHC (31.0-36.0) g/dL RDW (11.5-14.5) % Plt Count (140-440) K/mcL MPV (7.4-10.4) fL Gran % (38.0-78.0) % Lymph % (Auto) (15.5-49.0) % Collin % (Auto) (1.0-12.0) % Eos % (Auto) (0.0-7.0) % Baso % (Auto) (0.0-2.0) % Gran # (1.80-8.00) K/mcL Lymph # (Auto) (1.50-4.80) K/mcL Collin # (Auto) (0.10-0.90) K/mcL Eos # (Auto) (0.00-0.70) K/mcL Baso # (Auto) (0.00-0.30) K/mcL VBG Lactic Acid (0.5-2.0) mmol/L Sodium (133-145) mmol/L Potassium (3.3-5.1) mmol/L Chloride (96-108) mmol/L Carbon Dioxide (22-30) mmol/L Anion Gap (8-16) BUN (8-23) mg/dl Creatinine (0.7-1.2) mg/dl GFR Calculation Glucose (70-105) mg/dL Calcium (8.6-10.4) mg/dl Total Bilirubin (0.0-1.0) mg/dL AST (0-37) U/l ALT (0-40) U/l Alkaline Phosphatase (39-117) U/L Troponin T 0.25 H* (0-0.03) ng/ml NT-Pro-B Natriuret Pep (0-450) pg/ml Total Protein (5.9-8.4) gm/dL Albumin (3.2-5.2) gm/dL Globulin (2.2-3.7) gm/dL Albumin/Globulin Ratio (1.0-2.3) Procalcitonin 1.02 (<0.10) ng/mL Disposition Pt seen by FUELS SALES REPRESENTATIVE/PA only: No Clinical Impression: Large pleural effusion, Obtundation, Anasarca, Chronic renal failure, stage 3 (moderate), Pancytopenia, Weakness, Hypoxia, DNR no code (do not resuscitate), End of life care Pneumothorax Qualifiers: Pneumothorax type: postprocedural Qualified Code(s): J95.811 - Postprocedural pneumothorax Summary: After multiple discussions with hospitalist, cardiology, radiology, and patient's caregiver/daughter (Krystle), decision made for hospice. This based on concern regarding futility and painfulness of interventions that would be of some help and limited options. Hospice will be initiated tomorrow (not available until tomorrow) and patient will be admitted to this hospital for comfort measures until this can be employed. Disposition: Xfer As Outpt/Obs ([facility]) Condition: Critical Referrals: Kali Choudhury MD [Primary Care Provider] -
[2020-02-21 10:40] LABS: ALT/SGPT 10 U/l (0-40); AST/SGOT 23 U/l (0-37); Albumin 3.5 gm/dL (3.2-5.2); Albumin/Globulin Ratio 1.5 (1.0-2.3); Alkaline Phosphatase 77 U/L (39-117); Bilirubin,Total 1.2 mg/dL (0.0-1.0); Blood Urea Nitrogen 72 mg/dl (8-23); Calcium 9.1 mg/dl (8.6-10.4); Carbon Dioxide 32 mmol/L (22-30); Globulin 2.4 gm/dL (2.2-3.7); Glomerular Filtration Rate 19; Glucose 120 mg/dL (70-105)
[2020-02-21 10:47] LABS: Chloride 92 mmol/L (96-108)
--- NOTE | 2020-02-21 12:03 | Cat Scan Report ---
CLINICAL INFORMATION: [place] pain. Anasarca with low back pain COMPARISON: Abdomen and pelvic CT two months prior 12/24/2019 TECHNIQUE: 0.625 mm helical slices were obtained from the mid heart through the subtrochanteric regions. Following reconstruction, 2.5 mm sagittal, coronal and axial reformatted images were processed and reviewed at bone and soft tissue windows.The exam was performed using radiation dose optimization techniques including, but not limited to, automated exposure control, adjustment of the mA and/or kV according to patient size and use of iterative reconstruction technique. FINDINGS: There is now a large right pleural effusion with pneumothorax in the nondependent right lung base resulting in complete collapse of the right lung. Small to moderate left pleural effusion is increased. The heart is moderately enlarged with calcific plaque in the coronary arteries. This is unchanged. Abdominal images again showed diminutive liver with irregular cortical surface inhomogeneous attenuation compatible with moderate cirrhosis. No focal hepatic lesion. The portal vein is mildly dilated and there are varices and perigastric perisplenic regions. The spleen is moderately enlarged but unchanged. Moderate ascites in the upper abdomen and pelvis increased. There is also moderate subcutaneous edema throughout the abdomen and pelvis which have increased modestly. Gallbladder and bile ducts are normal in the CBD is 5 mm. A two centers simple cyst posterior mid right kidney is unchanged. The remainder of the kidneys, adrenal glands, pancreas and aorta are normal. There is no free air or adenopathy. Stomach, small large bowel again show mild ileus pattern. Few sigmoid diverticuli seen as before. Pelvic images show normal urinary bladder and prostate for age. Bone windows show right hip prostheses anatomically aligned. IMPRESSION: 1. Moderate cirrhosis with portal hypertension featuring portal vein enlargement with varices in the perisplenic and gastric region. Spleen is moderately enlarged with moderate ascites throughout the abdomen and pelvis. Moderate ascites increasing throughout the abdomen and pelvis the prior study. There is also diffuse subcutaneous edema. 2. Large right pleural effusion and pneumothorax in the anterior nondependent region resulting in complete right lung collapse. As noted on the common chest x-ray small to moderate left pleural effusion increasing. 3. Moderate cardiomegaly. 4. Subcutaneous edema in the flank region of the chest and abdomen - increasing Interpreted and Authenticated by: Korey Wallace 02/21/20
--- NOTE | 2020-02-21 15:12 | Internal Med History&Physical ---
Medical - H&P: HPI Patient information: Note initiated : 02/21/20 at 3:07 pm Service Date, if different from initiated Date: [] Patient: Bran Canas a 89 y/o M admitted on for Weakness. Chief Complaint: [] Chief complaint: Weakness History of present illness: Mr. Canas is a 89 year old M chronically debilitated underlying biventricular heart failure/COPD/HTN/A. fib/pulmonary hypertension resultant anasarca requiring multiple hospitalizations in the recent past. He presents to the emergency room for evaluation for worsening symptoms including increasing weakness, falls,, dyspnea, inability to function. Symptoms have continued to progress progressed over the last month. He recently underwent thoracentesis for recurrent pleural effusion however following procedure developed pneumo thorax. He was discharged following postprocedural monitoring. No associated fever chills. Evaluation/work-up in the ER is as below. 89-year-old with a multitude of symptoms including seeming to have shortness of breath, more oxygen requirement, sleepy and tired, decreased appetite, weakness, disorientation, on a background of CHF, recurrent pleural effusions, etc. He is DNR but with some Comfort measures to be employed. He has a history of some chronic renal failure as well as pancytopenia and recurrent pleural effusions. "Slipped out of bed" with some low back pain this morning and so we will be doing imaging. 10:40 AM - chest x-ray demonstrates an increase in size in the pneumothorax and a large pleural effusion. Radiology recommends a larger chest tube. 10:45 AM - approximately EKG demonstrates LVH, left axis deviation, probable bundle branch block, and atrial fibrillation. Is similar to previous EKGs. 10:53 AM - consult requested with surgeon. He is not available for an hour and a half due to being in a procedure. Patient is stable in the meantime saturating on 1 L at 92+ percent. I spoke with patient's daughter a few minutes earlier and she is agreeable for the recommended chest tube. 10:55 AM - troponin comes back 0.25. Most recent seven 0.15, 0.19, 0.09, 0.11 Again is anemic with a hemoglobin of 8.4. Recently 8.6-9.1. Platelets also again low at 42. Previously 47 and has been low for a long time but this is the lowest Creatinine is significantly l elevated at 2.9. Most recent 1.9-2.1. 11:15 AM - I spoke with general surgeon, Tye Burks, who points out that with this history and severity of CHF/pleural effusion recurrent symptoms, that it is unlikely that he will be able to get the chest tube to come out because it will keep draining significant amount of fluid and it will just reaccumulate. He recommend speaking with the hospitalist. He is willing to put it and if that is what family desires. 11:56 AM - I spoke with hospitalist, Dr. Caruso, who points out that with the 0.25 troponin he would want to have a dredge worker on board and participating if they want to be that aggressive. If they want to be interventional and tried to help his circumstances then it would require that transfer. If they do not want this aggressive measure or degree, he is willing. 12:11 PM - spoke with patient's daughter, Krystle, who indicates that he has been seeing Flor at [facility], and has had work-up that has included echocardiograms, stress testing and that both sides of his heart are deteriorating, valves are leaking, etc. No heart cath that she is aware of. 1216 approximately - I spoke with Flor who reports that she, herself, has talked with the patient Bran, Dr. Choudhury, and patient's daughter Krystle, with recommendations for palliative care and/or hospice because of the limited options. He is not a candidate for aggressive measures including heart cath, surgical interventions. Medical management is now maximized as additional diuresis will affect worsening kidney function and possibly contraindicated due to blood pressures. Patient is also seen Dr. Quintanilla. The elevated troponin could be simply the demand ischemia and/or volume overload/renal failure and does not change this. He has pulmonary hypertension etc. At this point she is again recommending hospice. 12:24 PM - I spoke with Dr. Caruso, hospitalist, and with Dr. Wallace, radiologist, with patient also demonstrating moderate ascites. A smaller chest tube such as a pigtail would not be indicated for the amount of fluid that he has and would require regular management by a nurse and would be a risk factor for infection is not recommended. The larger bore chest tube would be the only answer. 12:41 PM - I spoke with Krystle again, and she reports that patient's resistance to hospice in the past was he still had hope and did not want to give up in felt like fighting. Since then he has actually gotten worse. She reports that she has spoken with the nursing staff and it would be the same home health nurse that she is currently having come in which is Justino from [facility] and hospice. I discussed with her that a chest tube would help remove the fluid but that the fluid would reaccumulate fairly quickly and no and his time would be limited if we stopped doing this and we cannot keep doing this. Therefore his life expectancy is relatively short, i.e., probably at least less than 3 weeks, and if we put the chest tube in at least several days of those would be quite uncomfortable because the chest tubes are commonly quite uncomfortable. She asked for an opportunity to speak with her sister before making a decision. 12:58 PM - I again spoke with Krystle, who based on the above would like to go ahead with comfort care and hospice. No chest tube is desired at this point. 1:05 PM - I spoke with Marlen addiction social worker, who will contact patient in hospice. 1:15 PM - [facility] is not able to set up the hospice for this afternoon until tomorrow and arrangements can be made for tomorrow. I will have or request hospitalist to admit patient for comfort measures overnight until this arrangement is completed. Hospital service was consulted for initiating comfort care in light of above discussions between ER physician and patient's daughter/POA and multiple care providers including cardiology At the time of my evaluation of patient in ER, he appears lethargic and drowsy however is nondistressed on 2 L oxygen. He is not able to provide any history due to somnolence. Review of systems Attempted 10 point review system. Unable to provide details due to somnolence. Negative except as above Medical - H&P: PMH Medical history: Allergic rhinitis due to other allergen (Chronic) CHF (congestive heart failure) (Chronic) Chronic obstructive pulmonary disease (Chronic) Vitamin D deficiency (Chronic) Primary generalized (osteo)arthritis (Chronic) Chronic musculoskeletal pain (Chronic) Onychomycosis (Chronic) Bilateral Pure hypercholesterolemia (Chronic) Neuropathy, idiopathic (Chronic) FPC (current) use of aspirin (Chronic) Hypothyroidism (Chronic) Gout (Chronic) Cardiomegaly (Chronic) Exertional dyspnea (Chronic) Diastolic dysfunction (Chronic) Peripheral edema (Chronic) Shortness of breath (Chronic) Abnormal PFTs (pulmonary function tests) (Chronic) Fracture (Chronic) Seasonal allergies (Chronic) Hypertension (Chronic) Hypercholesteremia (Chronic) Anemia (Chronic) Pain of right thigh (Chronic) Bronchitis (Chronic) Sinusitis (Chronic) Eustachian tube dysfunction (Chronic) Hip fracture, right (Chronic) x2 Surgical History H/O hernia repair (Chronic) History of bilateral knee replacement (Chronic) History of colonoscopy (Chronic 10/25/15) History of knee replacement (Chronic) Bilateral knee joint replacement History of tonsillectomy (Chronic) History of total right hip arthroplasty (Chronic) Hx of shoulder surgery (Chronic) Right side Family History Brother Cardiac disease Diabetes Mother Diabetes Social History marital status: occupational status: retired smoking status: Former smoker quit date: 10/04/91 pack-years: 30 counseling given: other alcohol intake frequency: a few times a week substance use type: does not use Lives in [place] receives help from daughter and grandson Medical - H&P: Meds Home Medications Medication Instructions Recorded Confirmed Type levothyroxine 88 mcg tablet 88 mcg PO QAM tab 12/14/17 02/21/20 History omeprazole 20 mg capsule,delayed 40 mg PO BIDCC cap 12/15/17 02/21/20 History release ascorbic acid (vitamin C) 1,000 mg 1 g PO QDAY tab 06/20/18 02/21/20 History tablet doxazosin 4 mg tablet 8 mg PO DAILY #90 tab 09/22/18 02/21/20 Rx finasteride 5 mg tablet 5 mg PO QDAY #90 tab 09/22/18 02/21/20 Rx cranberry 500 mg capsule 500 mg PO QDAY cap 11/29/18 02/21/20 History ferrous sulfate 325 mg (65 mg 325 mg PO QDAY tab 02/08/19 02/21/20 History iron) tablet Metoprolol Succinate [Toprol Xl] 12.5 mg PO DAILY #30 tab.xl.[id number] 04/17/19 02/21/20 Rx acetaminophen 500 mg capsule 500 mg PO Q6H PRN 05/29/19 02/21/20 History loratadine 10 mg tablet 10 mg PO QDAY 05/29/19 02/21/20 History melatonin 1 mg tablet 5 mg PO HS tab 05/29/19 02/21/20 History gabapentin 300 mg capsule 300 mg PO TID cap 10/26/19 02/21/20 History Sildenafil Citrate [Revatio] 20 mg PO TID 11/07/19 02/21/20 History Fluticasone Propionate [Flonase] 2 spray NS DAILY PRN 11/08/19 02/21/20 History Magnesium Oxide [Magnesium] 400 mg PO BID 12/12/19 02/21/20 History allopurinol 100 mg tablet 200 mg PO DAILY tab 01/09/20 02/21/20 History bumetanide 2 mg tablet 4 mg PO BID tab 01/09/20 02/21/20 History ipratropium 0.5 mg-albuterol 3 mg 3 ml INHALATION BID ml 01/09/20 02/21/20 History (2.5 mg base)/3 mL nebulization soln metolazone 2.5 mg tablet 2.5 mg PO QDAY PRN tab 01/09/20 02/21/20 History multivitamin,qi-aatl-[place] 1 tab PO QDAY 01/09/20 02/21/20 History pravastatin 20 mg tablet 40 mg PO DAILY tab 01/09/20 02/21/20 History spironolactone 25 mg tablet 12.5 mg PO QDAY tab 01/09/20 02/21/20 History Allergies Allergy/AdvReac Type Severity Reaction Status Date / Time Amoxicillin AdvReac Mild Nausea Verified 01/25/20 09:00 sulfamethoxazole AdvReac Mild Nausea Verified 01/25/20 09:00 [From Bactrim] trimethoprim [From Bactrim] AdvReac Mild Nausea Verified 01/25/20 09:00 Medical - H&P: Exam - Constitutional Vitals: Temp Pulse Resp BP Pulse Ox 97.7 F 88 21 102/89 99 02/21/20 10:52 02/21/20 14:48 02/21/20 14:48 02/21/20 14:48 02/21/20 14:48 General appearance: no acute distress Exam: Somnolent Head normocephalic Oral cavity dry No ear or nose discharge S1-S2 irregular Absent breath sounds bases Abdomen soft Lower extremity pitting edema Psych lethargic drowsy Skin no suspicious lesion No sinus clubbing or joint swelling Neuro could not be examined Medical - H&P: Reslt - Labs CBC & Chem 7: 02/21/20 09:39 02/21/20 09:39 Labs: Short CBC 02/21/20 Range/Units 09:39 WBC 6.2 (4.50-11.00) K/mcL Hgb 8.4 L (13.7-17.5) g/dL Hct 25.8 L (40.1-51.0) % Plt Count 42 L* (140-440) K/mcL BMP 02/21/20 09:39 Sodium 137 Potassium 4.7 Chloride 92 L Carbon Dioxide 32 H BUN 72 H Creatinine 2.9 H Glucose 120 H Calcium 9.1 Cardiac Enzymes 02/21/20 Range/Units 09:40 Troponin T 0.25 H* (0-0.03) ng/ml Liver Function 02/21/20 Range/Units 09:39 Total Bilirubin 1.2 H (0.0-1.0) mg/dL AST 23 (0-37) U/l ALT 10 (0-40) U/l Alkaline Phosphatase 77 (39-117) U/L Albumin 3.5 (3.2-5.2) gm/dL Medical - H&P: A/P (1) Pneumothorax Current visit: Yes Status: Acute * Pneumothorax-family decided against chest tube placement. Patient admitted for comfort care * Palliation in light of biventricular heart failure, recurrent pleural effusion/pneumothorax/poor quality of life. Extensive discussion by ER physician and patient's POA daughter. Continue aggressive pain and symptom management * DNR comfort care Plan * Observation admit for pain and symptom management * Case management to coordinate outpatient hospice * Discharge planning likely in 24 to 48 hours following hospice set up
[2020-02-21] MEDS ORDERED: ONDANSETRON 4 MG/2 ML VIAL IV PRN (15:47)
[2020-02-21] MEDS ORDERED: LORazepam 2 MG/ML VIAL IV PRN (15:47)
[2020-02-21] MEDS ORDERED: HYDROmorphone 1 MG/ML SYRINGE IV PRN (15:47)
[2020-02-21] MEDS ORDERED: LACTOPEROXI/GLUC OXID/POT THIO 1 EACH GEL..EA. TOPICAL PRN (15:47)
[2020-02-21] MEDS ORDERED: ONDANSETRON 4 MG ODT TABLET SL PRN (15:47)
[2020-02-21] MEDS ORDERED: ALBUTEROL SULFATE 2.5 MG/3 ML NEBULIZER NEB PRN (15:47)
[2020-02-21] MEDS ORDERED: METOLAZONE 2.5 MG TABLET PO PRN (15:47)
[2020-02-21] MEDS ORDERED: FLUTICASONE PROPIONATE SPRAY.NAS NS PRN (15:47)
[2020-02-21] MEDS: 0.9 % SODIUM CHLORIDE 10 ML SYRINGE IV SCH ×2 (17:52→20:21)
[2020-02-21] MEDS: DOCUSATE SODIUM 100 MG CAPSULE PO SCH (20:21)
[2020-02-21] MEDS: BUMETANIDE 1 MG TABLET PO SCH (20:21)
[2020-02-21] MEDS ORDERED: MELATONIN 3 MG TABLET PO SCH (21:00)
[2020-02-21] MEDS: IPRATROPIUM/ALBUTEROL 3 ML AMPUL.NEB NEB SCH (21:14)
[2020-02-22] MEDS: 0.9 % SODIUM CHLORIDE 10 ML SYRINGE IV SCH (04:53)
[2020-02-22] MEDS: IPRATROPIUM/ALBUTEROL 3 ML AMPUL.NEB NEB SCH (07:51)
[2020-02-22] MEDS: DOCUSATE SODIUM 100 MG CAPSULE PO SCH (08:40)
[2020-02-22] MEDS: BUMETANIDE 1 MG TABLET PO SCH (08:40)
--- NOTE | 2020-02-22 09:16 | Discharge Summary ---
Medical - DS: Prov Patient information: Note initiated : 02/22/20 at 9:13 am Service Date, if different from initiated Date: [] Patient: Bran Canas 89 y/o M admitted on 02/21/20 for Weakness. Chief Complaint: [] Date of admission: 02/21/20 15:16 Discharge date: 02/22/20 Primary care physician: Kali Choudhury Consults: 02/21/20 Consult to Physician [CONS] Stat Comment: Consulting Provider: Ricardo Decker Reason For Exam: Physician to Consult 02/21/20 11:48 Consult to Physician [CONS] Stat Comment: Consulting Provider: Tye Burks Reason For Exam: Physician to Consult Medical - DS: Meds - Discharge Medications Active and Home Medications: Home Medications levothyroxine 88 mcg tablet 88 mcg PO QAM tab 12/14/17 [History Confirmed 02/21/20 Last Taken 02/21/20 88 mcg] omeprazole 20 mg capsule,delayed release 40 mg PO BIDCC cap 12/15/17 [History Confirmed 02/21/20 Last Taken 1 Day Ago ~02/20/20 40 mg] ascorbic acid (vitamin C) 1,000 mg tablet 1 g PO QDAY tab 06/20/18 [History Confirmed 02/21/20 Last Taken 1 Day Ago ~02/20/20 1 g] doxazosin 4 mg tablet 8 mg PO DAILY #90 tab 09/22/18 [Rx Confirmed 02/21/20 Last Taken 1 Day Ago ~02/20/20 8 mg] finasteride 5 mg tablet 5 mg PO QDAY #90 tab 09/22/18 [Rx Confirmed 02/21/20 Last Taken 1 Day Ago ~02/20/20 5 mg] cranberry 500 mg capsule 500 mg PO QDAY cap 11/29/18 [History Confirmed 02/02 Last Taken 1 Day Ago ~02/20/20 500 mg] ferrous sulfate 325 mg (65 mg iron) tablet 325 mg PO QDAY tab 02/08/19 [History Confirmed 02/21/20 Last Taken 1 Day Ago ~02/20/20 325 mg] Metoprolol Succinate [Toprol Xl] 12.5 mg PO DAILY #30 tab.xl.24h 04/17/19 [Rx Confirmed 02/21/20 Last Taken 1 Day Ago ~02/20/20 12.5 mg] acetaminophen 500 mg capsule 500 mg PO Q6H PRN 05/29/19 [History Confirmed 02/20 Last Taken Unknown] loratadine 10 mg tablet 10 mg PO QDAY 05/29/19 [History Confirmed 02/21/20 Last Taken 1 Day Ago ~02/20/20 10 mg] melatonin 1 mg tablet 5 mg PO HS tab 05/29/19 [History Confirmed 02/21/20 Last Taken 1 Day Ago ~02/20/20 5 mg] gabapentin 300 mg capsule 300 mg PO TID cap 10/26/19 [History Confirmed 02/21/20 Last Taken 1 Day Ago ~02/20/20 300 mg] Sildenafil Citrate [Revatio] 20 mg PO TID 11/07/19 [History Confirmed 02/21/20 Last Taken 1 Day Ago ~02/20/20 20 mg] Fluticasone Propionate [Flonase] 2 spray NS DAILY PRN 11/08/19 [History Confirmed 02/21/20 Last Taken 1 Day Ago ~02/20/20 2 spray] Magnesium Oxide [Magnesium] 400 mg PO BID 12/12/19 [History Confirmed 02/21/20 Last Taken 1 Day Ago ~02/20/20 400 mg] allopurinol 100 mg tablet 200 mg PO DAILY tab 01/09/20 [History Confirmed 02/21/20 Last Taken 1 Day Ago ~02/20/20 200 mg] bumetanide 2 mg tablet 4 mg PO BID tab 01/09/20 [History Confirmed 02/21/20 Last Taken 1 Day Ago ~02/20/20 4 mg] ipratropium 0.5 mg-albuterol 3 mg (2.5 mg base)/3 mL nebulization soln 3 ml INHALATION BID ml 01/09/20 [History Confirmed 02/21/20 Last Taken 1 Day Ago ~02/20/20 3 mL] metolazone 2.5 mg tablet 2.5 mg PO QDAY PRN tab 01/09/20 [History Confirmed 02/21/20 Last Taken Unknown] multivitamin,ii-ptet-ctapbcnp 1 tab PO QDAY 01/09/20 [History Confirmed 02/21/20 Last Taken 1 Day Ago ~02/20/20 1 tab] pravastatin 20 mg tablet 40 mg PO DAILY tab 01/09/20 [History Confirmed 02/21/20 Last Taken 1 Day Ago ~02/20/20 40 mg] spironolactone 25 mg tablet 12.5 mg PO QDAY tab 01/09/20 [History Confirmed 02/21/20 Last Taken 1 Day Ago ~02/20/20 12.5 mg] Medical - DS: Hosp Hospital Course: Discharge diagnosis * Pneumothorax-family decided against chest tube placement. Patient on comfort care measures. * End-stage heart failure * Palliation in light of biventricular heart failure, recurrent pleural effusion/pneumothorax/poor quality of life. Extensive discussion by ER physician and patient's POA daughter. Continue aggressive pain and symptom management. Discharging with home hospice * DNR comfort care Brief hospital course Mr. Canas is a 89 year old M chronically debilitated underlying biventricular heart failure/COPD/HTN/A. fib/pulmonary hypertension resultant anasarca requiring multiple hospitalizations in the recent past. He presents to the emergency room for evaluation for worsening symptoms including increasing weakness, falls,, dyspnea, inability to function. Symptoms have continued to progress progressed over the last month. He recently underwent thoracentesis fo r recurrent pleural effusion however following procedure developed pneumothorax. He was discharged following postprocedural monitoring. No associated fever chills. Evaluation/work-up in the ER is as below. 89-year-old with a multitude of symptoms including seeming to have shortness of breath, more oxygen requirement, sleepy and tired, decreased appetite, weakness, disorientation, on a background of CHF, recurrent pleural effusions, etc. He is DNR but with some Comfort measures to be employed. He has a history of some chronic renal failure as well as pancytopenia and recurrent pleural effusions. "Slipped out of bed" with some low back pain this morning and so we will be doing imaging. 10:40 AM - chest x-ray demonstrates an increase in size in the pneumothorax and a large pleural effusion. Radiology recommends a larger chest tube. 10:45 AM - approximately EKG demonstrates LVH, left axis deviation, probable bundle branch block, and atrial fibrillation. Is similar to previous EKGs. 10:53 AM - consult requested with surgeon. He is not available for an hour and a half due to being in a procedure. Patient is stable in the meantime saturating on 1 L at 92+ percent. I spoke with patient's daughter a few minutes earlier and she is agreeable for the recommended chest tube. 10:55 AM - troponin comes back 0.25. Most recent seven 0.15, 0.19, 0.09, 0.11 Again is anemic with a hemoglobin of 8.4. Recently 8.6-9.1. Platelets also again low at 42. Previously 47 and has been low for a long time but this is the lowest Creatinine is significantly l elevated at 2.9. Most recent 1.9-2.1. 11:15 AM - I spoke with general surgeon, Tye Burks, who points out that with this history and severity of CHF/pleural effusion recurrent symptoms, that it is unlikely that he will be able to get the chest tube to come out because it will keep draining significant amount of fluid and it will just reaccumulate. He recommend speaking with the hospitalist. He is willing to put it and if that is what family desires. 11:56 AM - I spoke with hospitalist, Dr. Caruso, who points out that with the 0.25 troponin he would want to have a accountant bookkeeper on board and participating if they want to be that aggressive. If they want to be interventional and tried to help his circumstances then it would require that transfer. If they do not want this aggressive measure or degree, he is willing. 12:11 PM - spoke with patient's daughter, Krystle, who indicates that he has been seeing Flor at [facility], and has had work-up that has included echocardiograms, stress testing and that both sides of his heart are deteriorating, valves are leaking, etc. No heart cath that she is aware of. 1216 approximately - I spoke with Flor who reports that she, herself, has talked with the patient Bran, Dr. Choudhury, and patient's daughter Krystle, with recommendations for palliative care and/or hospice because of the limited options. He is not a candidate for aggressive measures including heart cath, surgical interventions. Medical management is now maximized as additional diuresis will affect worsening kidney function and possibly contraindicated due to blood pressures. Patient is also seen Dr. Quintanilla. The elevated troponin could be simply the demand ischemia and/or volume overload/renal failure and does not change this. He has pulmonary hypertension etc. At this point she is again recommending hospice. 12:24 PM - I spoke with Dr. Caruso, hospitalist, and with Dr. Wallace, radiologist, with patient also demonstrating moderate ascites. A smaller chest tube such as a pigtail would not be indicated for the amount of fluid that he has and would require regular management by a nurse and would be a risk factor for infection is not recommended. The larger bore chest tube would be the only answer. 12:41 PM - I spoke with Krystle again, and she reports that patient's resistance to hospice in the past was he still had hope and did not want to give up in felt like fighting. Since then he has actually gotten worse. She reports that she has spoken with the nursing staff and it would be the same home health nurse that she is currently having come in which is Justino from [facility] and hospice. I discussed with her that a chest tube would help remove the fluid but that the fluid would reaccumulate fairly quickly and no and his time would be limited if we stopped doing this and we cannot keep doing this. Therefore his life expectancy is relatively short, i.e., probably at least less than 3 weeks, and if we put the chest tube in at least several days of those would be quite uncomfortable because the chest tubes are commonly quite uncomfortable. She asked for an opportunity to speak with her sister before making a decision. 12:58 PM - I again spoke with Krystle, who based on the above would like to go ahead with comfort care and hospice. No chest tube is desired at this point. 1:05 PM - I spoke with Marlen, social media marketer, who will contact patient in hospice. 1:15 PM - replaced by [facility] is not able to set up the hospice for this afternoon until tomorrow and arrangements can be made for tomorrow. I will have or request hospitalist to admit patient for comfort measures overnight until this arrangement is completed. Hospital service was consulted for initiating comfort care in light of above discussions between ER physician and patient's daughter/POA and multiple care providers including cardiology At the time of my evaluation of patient in ER, he appears lethargic and drowsy however is nondistressed on 2 L oxygen. He is not able to provide any history due to somnolence. 02/21-patient remains on palliation with aggressive pain and symptom management. No overnight events.. Discharging with home hospice. Discharge diagnosis: . - Time Spent with Patient Total time spent providing and/or coordinating discharge services: Greater than 30 minutes Medical - DS: Exam - Constitutional Vitals: Vital Signs Temp Pulse Pulse Resp BP BP BP 02/22/20 07:23 99.2 F H 103 H 12 91/57 05/21/20 03:07 99.6 F H 100 H 101/55 05/20/20 21:25 74 18 05/20/20 19:17 98.1 F 74 12 96/54 05/20/20 15:37 97.7 F 88 21 102/89 05/20/20 15:16 98 F 74 18 93/54 05/20/20 14:48 88 21 102/89 05/20/20 14:46 78 20 102/89 05/20/20 14:31 73 12 86/52 05/20/20 14:27 78 14 85/54 05/20/20 14:16 71 13 85/54 05/20/20 14:01 71 13 85/45 05/20/20 13:46 69 14 81/43 05/20/20 13:31 68 14 80/45 05/20/20 13:16 69 14 84/43 05/20/20 13:14 61 13 88/51 05/20/20 13:01 80 18 88/51 05/20/20 12:46 67 12 82/42 05/20/20 12:40 72 12 82/57 05/20/20 12:31 67 13 82/57 05/20/20 12:16 68 13 82/41 05/20/20 12:09 64 13 75/52 05/20/20 12:07 64 14 05/20/20 12:01 67 13 77/43 05/20/20 11:46 63 13 78/40 05/20/20 11:31 70 14 80/48 05/20/20 11:29 71 13 83/46 05/20/20 11:28 72 15 82/44 05/20/20 10:53 75 102/57 05/20/20 10:52 97.7 F 76 20 102/57 05/20/20 10:14 77 17 102/57 05/20/20 09:23 97.7 F 76 20 102/57 Pulse Ox 02/22/20 07:23 97 05/21/20 03:07 96 05/20/20 21:25 05/20/20 19:17 97 05/20/20 15:37 99 05/20/20 15:16 100 02/21/20 14:48 99 02/21/20 14:46 99 02/21/20 14:31 02/21/20 14:27 02/21/20 14:16 02/21/20 14:01 100 02/21/20 13:46 100 02/21/20 13:31 02/21/20 13:16 100 02/21/20 13:14 02/21/20 13:01 02/21/20 12:46 02/21/20 12:40 100 02/21/20 12:31 100 02/21/20 12:16 100 02/21/20 12:09 100 02/21/20 12:07 02/21/20 12:01 02/21/20 11:46 02/21/20 11:31 02/21/20 11:29 02/21/20 11:28 02/21/20 10:53 94 02/21/20 10:52 87 L 02/21/20 10:14 93 02/21/20 09:23 87 L Intake and Output 02/21/20 02/22/20 02/22/20 21:59 05:59 13:59 Intake Total 250 100 Output Total 251 177 Balance -1 Intake: Oral 250 100 Output: Void Amount 250 175 # of times incontinent of urine 1 2 Other: Meal Dinner Percent of Meal Consumed 50% Feeding Ability Total Assistance Urine Color Light Stefanie Straw Urine Odor Strong # Voids 1 Weight 201 lb 3.2 oz Medical - DS: Data Labs on day of discharge: Labs from last 24 hours 02/21/20 02/21/20 02/21/20 09:40 09:40 09:39 WBC RBC Hgb Hct MCV MCH MCHC RDW Plt Count MPV Gran % Lymph % (Auto) Waller % (Auto) Eos % (Auto) Baso % (Auto) Gran # Lymph # (Auto) Waller # (Auto) Eos # (Auto) Baso # (Auto) VBG Lactic Acid 1.0 Sodium Potassium Chloride Carbon Dioxide Anion Gap BUN Creatinine GFR Calculation Glucose Calcium Total Bilirubin AST ALT Alkaline Phosphatase Troponin T 0.25 H* NT-Pro-B Natriuret Pep Total Protein Albumin Globulin Albumin/Globulin Ratio Procalcitonin 1.02 02/21/20 02/21/20 09:39 09:39 WBC 6.2 RBC 2.64 L Hgb 8.4 L Hct 25.8 L MCV 97.7 MCH 31.8 MCHC 32.6 RDW 17.2 H Plt Count 42 L* MPV 12.4 H Gran % 89.2 H Lymph % (Auto) 4.2 L Waller % (Auto) 5.3 Eos % (Auto) 1.0 Baso % (Auto) 0.3 Gran # 5.57 Lymph # (Auto) 0.26 L Waller # (Auto) 0.33 Eos # (Auto) 0.06 Baso # (Auto) 0.02 VBG Lactic Acid Sodium 137 Potassium 4.7 Chloride 92 L Carbon Dioxide 32 H Anion Gap 13.0 BUN 72 H Creatinine 2.9 H GFR Calculation 19 Glucose 120 H Calcium 9.1 Total Bilirubin 1.2 H AST 23 ALT 10 Alkaline Phosphatase 77 Troponin T NT-Pro-B Natriuret Pep 41101.0 H Total Protein 5.9 Albumin 3.5 Globulin 2.4 Albumin/Globulin Ratio 1.5 Procalcitonin Medical - DS: A/P - Patient/Caregiver Discharge Instructions Activity: other (All activities and therapies directed towards comfort) Diet: Regular Diet Additional Instructions: All activities/diet and therapies directed towards end-of-life care/pain and symptom management Prescriptions: LORazepam [Lorazepam Intensol] 2 mg PO Q4H PRN #30 ml PRN Reason: Anxiety morphine 10 mg PO Q2HP PRN #20 oral.conc PRN Reason: Anxiety Scopolamine [Transderm-Scop] 1 each TD Q72 #7 patch.td72 Prescription Printed Ondansetron HCl [Zofran] 4 mg PO Q4-6H #120 ml Prescription Printed - Problem Maintenance (1) Pneumothorax Status: Acute Qualifiers: Pneumothorax type: postprocedural Qualified Code(s): J95.811 - Postprocedural pneumothorax - Follow up Plan Follow up with: Kali Choudhury MD [Primary Care Provider] - Disposition: Hospice - Home Prognosis: Critical Rehab Potential: Undetermined I certify that the patient requires SNF services: No Overall status at discharge: patient is not back to baseline
== END 2020-02-22 10:20 | disposition hospice, home (50) ==
LOC: ED 09:22 → MEDSUR 09:22
PROVIDERS: ADMIT Internal Medicine; ATTEND Internal Medicine